=== PATIENT | male | born 1960 | race Two or more races ===

== ENCOUNTER 2020-04-10 14:14 | Outpatient (REF) | payer OTHER, SELFPAY ==
--- NOTE | 2020-04-10 | US_ITS ---
EXAMINATION: US RETROPERITONEAL LIMITED (RENAL ONLY) CLINICAL INFORMATION: Pain in right lower quadrant. COMPARISON: Renal ultrasound 07/19/2019. CT abdomen and pelvis 02/26/2019. Ultrasound abdomen complete 10/20/2018. TECHNIQUE: Real-time imaging of the kidneys. FINDINGS: RIGHT KIDNEY: 11.8 x 5.6 x 5.4 cm (SAG x AP x TRV). The kidney is normal in size, contour, and echogenicity. Renal cortical thickness is normal. No calculi or focal parenchymal lesions. No hydronephrosis. LEFT KIDNEY: 11.9 x 6.9 x 5.7 cm (SAG x AP x TRV). The kidney is normal in size, contour, and echogenicity. Renal cortical thickness is normal. No renal calculi or hydronephrosis. There is an echogenic partially exophytic lesion midpole cortex measuring 2.2 x 1.5 x 1.5 cm likely angiomyolipoma. Previously it measured 1.5 x 1.3 x 1.3 cm on ultrasound on 07/19/2019. US/US renal BI IMPRESSION: Stable angiomyolipoma left kidney. The right kidney is unremarkable.
== END 2020-04-10 14:15 | disposition home or self-care (01) ==
LOC: HO.US 14:14
DX: R10.31 Right lower quadrant pain (principal)
CPT/HCPCS: 76775

== ENCOUNTER 2020-05-18 07:58 | Outpatient (REF) | payer OTHER, SELFPAY ==
[2020-05-18 08:14] LABS: COVID-19 Test Negative (Negative)
== END 2020-05-18 07:59 | disposition home or self-care (01) ==
LOC: HO.EMPCOV 07:58
PROVIDERS: Visit Provider Internal Medicine
DX: Z20.828 Contact with and (suspected) exposure to other viral communicable diseases (principal)
CPT/HCPCS: 87635; C9803

== ENCOUNTER 2020-07-10 10:30 | Outpatient (REF) | payer OTHER, SELFPAY ==
[2020-07-10 10:34] VITALS: BP 147/73; PULSE 59; RESP 16; TEMP 37; O2SAT 96
[2020-07-10 10:35] VITALS: BMI 86.3
[2020-07-10 12:40] VITALS: BP 143/70; PULSE 64; RESP 16; O2SAT 97
== END 2020-07-10 10:31 | disposition home or self-care (01) ==
LOC: HO.MS 10:30
PROVIDERS: PCP Internal Medicine; Visit Provider Ophthalmology
PROC: (CPT 11200; principal; 2020-07-10 12:10)
DX: D23.122 Other benign neoplasm of skin of left lower eyelid, including canthus (principal); D23.121 Other benign neoplasm of skin of left upper eyelid, including canthus; D23.112 Other benign neoplasm of skin of right lower eyelid, including canthus; D23.111 Other benign neoplasm of skin of right upper eyelid, including canthus; L91.8 Other hypertrophic disorders of the skin; I48.91 Unspecified atrial fibrillation; Z79.01 Long term (current) use of anticoagulants; Z79.899 Other long term (current) drug therapy; Z91.040 Latex allergy status
CPT/HCPCS: 11200; 11440 ×4; 88304; 88305

== ENCOUNTER 2020-07-24 06:12 | Outpatient (REF) | payer OTHER, SELFPAY ==
[2020-07-24 07:07] LABS: MANUAL DIFF FLAG NO
[2020-07-24 07:13] LABS: Basophils Percent Auto 0.4 % (0-2); Eosinophils Absolute Auto 0.2 X10*3/uL (0.0-0.4); Eosinophils Percent Auto 2.1 % (0-4); Hematocrit 39.1 % (42-52); Hemoglobin 12.7 g/dl (14.0-18.0); Imm Gran Abs Auto 0.05 X10*3/uL (0.00-0.03); Imm Gran Pct Auto 0.6 % (0.0-0.4); Lymphocytes Absolute Auto 1.1 X10*3/uL (1.2-4.9); Lymphocytes Percent Auto 13.2 % (20-40); Mean Corpuscular HGB Conc 32.5 g/dl (31.0-36.0); Mean Corpuscular Hemoglobin 30.3 pg (27.0-33.0); Mean Corpuscular Volume 93.3 fL (80-98); Mean Platelet Volume 10.5 fL (9.4-12.4); Monocytes Absolute Auto 0.7 X10*3/uL (0.1-1.2); Monocytes Percent Auto 8.1 % (2-11); Neutrophils Absolute Auto 6.1 X10*3/uL (2.0-8.3); Neutrophils Percent Auto 75.6 % (45-73); Platelet Count 179 X10*3/uL (160-400); Red Blood Count 4.19 X10*6/uL (4.60-5.80); White Blood Count 8.1 X10*3/uL (4.8-10.8)
[2020-07-24 07:34] LABS: Alanine Aminotransferase 65 U/L (0-40); Albumin Level 4.3 g/dL (3.5-5.0); Alkaline Phosphatase 119 U/L (39-117); Aspartate Amino Transferase 57 U/L (5-37); Bilirubin Total 0.3 mg/dL (0.0-1.0); Blood Urea Nitrogen 17 mg/dL (9-16); Calcium 8.8 mg/dL (8.4-10.2); Cholesterol 170 mg/dL; Estimated Glomerular Filt Rate > 60; Glucose Fasting 113 mg/dL (60-99); HDL Cholesterol 60 mg/dL; LDL Cholesterol Calculated 87 mg/dl; Total Protein 7.2 g/dL (6.5-8.0); Triglycerides 116 mg/dL
[2020-07-24 07:43] LABS: Anion Gap 13 (12-20); Carbon Dioxide 26 mmol/L (22-29); Chloride 105 mmol/L (96-108); Potassium 4.3 mmol/L (3.3-5.1); Sodium 140 mmol/L (135-145)
[2020-07-24 07:53] LABS: Thyroid Stimulating Hormone 2.04 uIU/mL (0.32-4.0)
== END 2020-07-24 06:13 | disposition home or self-care (01) ==
LOC: HO.LAB 06:12
PROVIDERS: PCP Internal Medicine; Visit Provider Internal Medicine
DX: Z00.00 Encounter for general adult medical examination without abnormal findings (principal); E11.9 Type 2 diabetes mellitus without complications; E03.9 Hypothyroidism, unspecified
CPT/HCPCS: 36415; 80053; 80061; 84443; 85025

== ENCOUNTER → 2020-08-14 12:41 | Outpatient (BNVA) | payer OTHER, SELFPAY | PROVIDERS: PCP Internal Medicine; Visit Provider Internal Medicine Cardiovascular Disease | DX: I83.93 Asymptomatic varicose veins of bilateral lower extremities (principal); I48.0 Paroxysmal atrial fibrillation; I10 Essential (primary) hypertension; E66.9 Obesity, unspecified | CPT/HCPCS: 93005 ==

== ENCOUNTER → 2020-08-23 12:39 | Outpatient (REF) | payer OTHER, SELFPAY | LOC: HO.SL 12:39 | PROVIDERS: PCP Internal Medicine; Visit Provider Internal Medicine Cardiovascular Disease | DX: G47.10 Hypersomnia, unspecified (principal); R06.83 Snoring | CPT/HCPCS: 95806 ==

== ENCOUNTER → 2020-09-06 15:15 | Outpatient (BNVA) | payer OTHER, SELFPAY | PROVIDERS: PCP Internal Medicine; Visit Provider Internal Medicine ==

== ENCOUNTER → 2020-09-22 08:20 | Outpatient (REF) | payer OTHER, SELFPAY ==
--- NOTE | 2020-09-22 08:24 | CA_ITS ---
Transthoracic Echocardiogram Patient (Last, First, Middle): Tyler Hicks, Gender: Male Date of : 1960 Age: 60 Procedure Date: 09/22/2020 Procedure Type: Transthoracic Echocardiogram Location: OP Height: 175.26 cm Weight: 115.67 kg BSA: 2.29 m2 Heart Rate: bpm BP: 135 / 68 mmHg Urogynaecologist: SUSANA Referring MD: Jasen Chen MD Symptoms: I48.0 - Paroxysmal atrial fibrillation Study Quality: Technically Difficult/contrast ECG Rhythm: Sinus Conclusions: - The left ventricular systolic function is normal. The visually estimated ejection fraction is between 60-65%. - No obvious valvular pathology seen on this study. - The left atrium is mildly dilated. Findings Procedure Information Contrast agent, definity, is being given per protocol without apparent complications. Left Ventricle Normal left ventricular cavity size. There is mildly increased left ventricular wall thickness. The left ventricular systolic function is normal. The visually estimated ejection fraction is between 60-65%. There is no evidence of regional wall motion abnormalities. Diastolic function is normal for age. Right Ventricle Normal right ventricular cavity size and systolic function. Atria The left atrium is mildly dilated. The right atrium is normal in size. Aortic Valve There is a normal trileaflet aortic valve. There is no aortic valve stenosis. There is no aortic valve regurgitation. Mitral Valve The mitral valve appears normal. There is trace mitral valve regurgitation. There is no mitral valve stenosis. Pulmonic Valve The pulmonic valve was not well visualized. Tricuspid Valve Normal tricuspid valve structure. There is trace tricuspid valve regurgitation. The pulmonary artery systolic pressure is normal. Great Vessels The aortic annulus, sinuses of valsalva, asc aorta, and aortic arch are normal in size. Venous The inferior vena cava is normal in size and collapses greater than 50% with inspiration. Pericardium/Pleural There is no evidence of pericardial effusion. Prior Study Comparison No significant change compared to prior study dated: 03/08/2019. Recommendations, Care & Conclusions No obvious valvular pathology seen on this study. Measurements 2D Linear Measurements IVSd: 1.28 0.6-0.9/0.6-1.0 cm LVIDd: 5.25 3.9-5.3/4.2-5.9 cm LVIDs: 3.34 2.0-3.6 cm LVPWd: 1.26 0.7-1.1 cm Ao Root: 3.77 2.1-3.5 cm LV Mass: 341.72 67-162/88-224 g LVOT Diam: 2.15 3.0+(-)1.3 cm Mitral Valve MV Pk E: 0.81 MV PK A: 0.67 MV Decel Time: 373.61 E/A: 1.21 E'Lateral: 0.12 E'Medial: 0.08 Decel Mower: 2.18 Aortic Valve AoV Pk Juan: 1.63 AoV Mn Juan: 1.10 AoV VTI: 0.38 AoV Pk Grad: 10.68 Aov Mn Grad: 5.39 LVOT LVOT Pk Juan: 1.42 LVOT Mn Juan: 1.02 LVOT VTI: 0.34 LVOT Pk Grad: 8.03 LVOT Mn Grad: 4.49 LVOT Diam: 2.15 LVOT Area: 3.63 Diastolic Function MV Pk E: 0.81 MV Pk A: 0.67 E/A: 1.21 E'Medial: 0.08 E' Laterial: 0.12 Tricuspid Valve TR Pk Juan: 1.89 TR Pk Grad: 14.22 RA Press: 8.00 RVSP: 22.00 Great Vessels Aorta Ao Root-2D: 3.77 2.0-3.7 cm Ao Asc: 3.88 2.1-3.4 cm Ao Arch: 2.99 Updated in Other Vendor System with Status of Final Warner Purdy MD electronically signed on 09/23/2020 4:31:55 PM with status of Final
== END ==
LOC: HO.CARD 08:20
PROVIDERS: PCP Internal Medicine; Visit Provider Internal Medicine Cardiovascular Disease
DX: I48.0 Paroxysmal atrial fibrillation (principal); I10 Essential (primary) hypertension
CPT/HCPCS: 93306; Q9957

== ENCOUNTER 2020-10-10 07:51 | Outpatient (REF) | payer OTHER, SELFPAY ==
--- NOTE | ~2020-10-10 | US_ITS ---
EXAMINATION: RIGHT and LEFT LOWER EXTREMITY VENOUS ULTRASOUND (Reflux Exam) CLINICAL INDICATION: The uterus insufficiency COMPARISON: None. TECHNIQUE: Color flow triplex imaging and compression Doppler was performed to evaluate both the deep and the superficial systems bilaterally. To evaluate the superficial system, the examination was performed in the upright position. Color-flow Doppler ultrasound and compression ultrasound were utilized. In addition, maneuvers were utilized to demonstrate reflux. FINDINGS: 1. DEEP VENOUS ULTRASOUND OF THE RIGHT LOWER EXTREMITY: Respiratory variation, normal compression and augmented flow are noted in the right common femoral vein as well as the right popliteal vein and there is no evidence of deep venous thrombosis at these locations. There is a 1.4 seconds reflux in the right mid femoral vein. There is no evidence of reflux in the deep system in either the common femoral vein or the popliteal vein. There is no evidence of a Colvin's cyst. 2. SUPERFICIAL ULTRASOUND WITH DOPPLER OF RIGHT LOWER EXTREMITY: The right great saphenous vein at the saphenofemoral junction measures 5 mm, at the mid thigh 3 mm, [id number]-[id number] 4 mm, warra-lik-ikwj 3 mm, at mid calf 3 mm and at the ankle measures 3 mm. There is no reflux demonstrated in the right great saphenous vein. The right small saphenous vein measures 3 mm and shows no reflux. There are 2 small perforators in the mid thigh and proximal calf that measure 2 and 1 mm and do not demonstrate reflux. 3. DEEP VENOUS ULTRASOUND OF THE LEFT LOWER EXTREMITY: Respiratory variation, normal compression and augmented flow are noted in the left common femoral vein as well as the left popliteal vein and there is no evidence of deep venous thrombosis at these locations. There is no evidence of reflux in the deep system in either the common femoral vein or the popliteal vein. . There is no evidence of a Colvin's cyst. 4. SUPERFICIAL ULTRASOUND WITH DOPPLER OF LEFT LOWER EXTREMITY: Left great saphenous vein at the saphenofemoral junction measures 5 mm, at the mid thigh 4 mm, oxnqy-plo-qzjd 3 mm, xomtn-zft-qmmi 3 mm, at mid calf 2 mm and at the ankle measures 3 mm. There is a 2.8 seconds reflux in the left greater saphenous vein in the mid thigh. There is an accessory medial greater saphenous vein that measures 3 mm and does not demonstrate reflux. The left small saphenous vein measures 2-3 mm and shows no reflux. There are some is a staff physician in the mid thigh that measures 2 mm and demonstrates greater than 3.1 seconds reflux. There are perforators in the calf that measure 2 mm and do not demonstrate reflux. US/US venous duplex LE BI IMPRESSION: 1. No evidence of DVT. Reflux in the right mid femoral vein. No left deep venous reflux. 2. Left greater saphenous vein reflux in the mid thigh and staff physician in the mid thigh that demonstrates reflux. No right saphenous vein reflux.
== END 2020-10-10 07:52 | disposition home or self-care (01) ==
LOC: HO.US 07:51
PROVIDERS: Visit Provider Surgery Vascular Surgery
DX: I83.893 Varicose veins of bilateral lower extremities with other complications (principal)
CPT/HCPCS: 93970

== ENCOUNTER → 2020-10-12 15:02 | Outpatient (BNVA) | payer OTHER, SELFPAY | PROVIDERS: PCP Internal Medicine; Visit Provider Surgery Vascular Surgery ==

== ENCOUNTER → 2020-11-03 07:21 | Outpatient (BNVA) | payer OTHER, SELFPAY | PROVIDERS: PCP Internal Medicine; Visit Provider Surgery Vascular Surgery | DX: I83.12 Varicose veins of left lower extremity with inflammation (principal) | CPT/HCPCS: 36482 ==

== ENCOUNTER 2020-11-06 13:58 | Outpatient (REF) | payer OTHER, SELFPAY ==
--- NOTE | ~2020-11-06 | US_ITS ---
EXAMINATION: US VENOUS ULTRASOUND WITH DOPPLER LOWER EXTREMITY, LEFT CLINICAL INFORMATION: Status post left venaseal 11/03/2020 COMPARISON: None TECHNIQUE: Limited imaging through the left groin and left femur was performed. FINDINGS: The left common femoral vein is patent. There is thrombus visualized in left greater saphenous vein status post venous heel approximately 2.1 cm away from the junction with superficial femoral vein. Incidental finding of a left groin lymph node measuring 2.8 x 0.8 x 1.8 cm. If the patient's symptoms persist, followup ultrasound in 5 days 7 days might be of value to exclude proximal propagation from a non-visualized calf vein. US/US venous duplex LE IMPRESSION: Thrombus visualized in the left greater saphenous vein status post venaseal. The left common femoral vein is patent. Additional finding of a left groin lymph node measuring 2.8 cm.
== END 2020-11-06 13:59 | disposition home or self-care (01) ==
LOC: HO.HMGCX 13:58
PROVIDERS: PCP Internal Medicine; Visit Provider Surgery Vascular Surgery
DX: M79.605 Pain in left leg (principal)
CPT/HCPCS: 93971

== ENCOUNTER → 2020-11-14 12:36 | Outpatient (BNVA) | payer OTHER, SELFPAY | PROVIDERS: PCP Internal Medicine; Referring Provider Internal Medicine; Visit Provider Internal Medicine Cardiovascular Disease | DX: I48.0 Paroxysmal atrial fibrillation (principal); I10 Essential (primary) hypertension | CPT/HCPCS: 93005 ==

== ENCOUNTER → 2020-11-16 15:00 | Outpatient (BNVA) | payer OTHER, SELFPAY | PROVIDERS: PCP Internal Medicine; Visit Provider Surgery Vascular Surgery ==

== ENCOUNTER → 2021-01-08 19:10 | Outpatient (REF) | payer OTHER, SELFPAY | LOC: HO.SL 19:10 | PROVIDERS: Visit Provider Internal Medicine | DX: G47.33 Obstructive sleep apnea (adult) (pediatric) (principal); G47.34 Idiopathic sleep related nonobstructive alveolar hypoventilation | CPT/HCPCS: 95811 ==

== ENCOUNTER 2021-02-05 07:31 | Outpatient (REF) | payer OTHER, SELFPAY ==
[2021-02-05 07:59] LABS: COVID-19 Test Negative (Negative)
== END 2021-02-05 07:32 | disposition home or self-care (01) ==
LOC: WCCF 07:31
PROVIDERS: Visit Provider Internal Medicine
DX: Z20.822 Contact with and (suspected) exposure to COVID-19 (principal)
CPT/HCPCS: 36415; 87635; C9803

== ENCOUNTER → 2021-02-06 15:08 | Outpatient (BNVA) | payer OTHER, SELFPAY | PROVIDERS: PCP Internal Medicine; Referring Provider Internal Medicine; Visit Provider Internal Medicine Cardiovascular Disease | DX: I48.0 Paroxysmal atrial fibrillation (principal); I10 Essential (primary) hypertension | CPT/HCPCS: 93005 ==

== ENCOUNTER → 2021-02-08 08:17 | Outpatient (REF) | payer OTHER, SELFPAY ==
--- NOTE | 2021-02-08 08:20 | CA_ITS ---
Acquisition Time: 2021-02-08 08:30:07 Total Exercise Time: 00:04:36 Test Indications: Screening for CAD Medications: AMIODORONE ELIQUIS LISINOPRIL OMEPRAZOLE ROSUVASTATIN TRIAMTERENE/HCTZ FLECAINIDE METOPROLOL Protocol: LILIAM Max HR: 099 BPM 62% of Pred: 158 BPM Max BP: 198/068 mmHG Max Work Load: 6.5 METS Exercise stress test with exercise 4 min 36 sec of Liliam protocol, achieving 62% MPHR and 6.5 METs, with report of significant sob and request to stop, no chest discomfort, without arrythmia, with BP max 198/68, with nondiagnostic EKG for ischemia due to suboptimal heart rate. In recovery his sob resolved and BP normalized. Test reviewed with Dr Chen Will order a pharmacological stress test to further eval for ischemia. Referred By: Jasen Chen Overread By: EREN SAHU
== END ==
LOC: HO.CARD 08:17
PROVIDERS: Visit Provider Internal Medicine Cardiovascular Disease
DX: I48.0 Paroxysmal atrial fibrillation (principal)
CPT/HCPCS: 93017

== ENCOUNTER 2021-02-16 11:01 | Outpatient (REF) | payer OTHER, SELFPAY ==
--- NOTE | ~2021-02-16 | XR_ITS ---
EXAMINATION: XR CHEST CLINICAL INFORMATION: Shortness of breath. COMPARISON: None TECHNIQUE: 2 views of the chest were obtained. FINDINGS: No significant abnormality is noted involving the heart, lungs, mediastinum, bony thorax or soft tissues. XR/XR chest 2V IMPRESSION: Unremarkable chest examination.
[2021-02-16 11:53] LABS: MANUAL DIFF FLAG NO
[2021-02-16 11:58] LABS: Basophils Percent Auto 0.5 % (0-2); Eosinophils Absolute Auto 0.1 X10*3/uL (0.0-0.4); Eosinophils Percent Auto 1.5 % (0-4); Hematocrit 34.2 % (42-52); Hemoglobin 10.8 g/dl (14.0-18.0); Imm Gran Abs Auto 0.03 X10*3/uL (0.00-0.03); Imm Gran Pct Auto 0.4 % (0.0-0.4); Lymphocytes Percent Auto 13.8 % (20-40); Mean Corpuscular HGB Conc 31.6 g/dl (31.0-36.0); Mean Corpuscular Hemoglobin 27.9 pg (27.0-33.0); Mean Corpuscular Volume 88.4 fL (80-98); Mean Platelet Volume 10.6 fL (9.4-12.4); Monocytes Absolute Auto 0.7 X10*3/uL (0.1-1.2); Monocytes Percent Auto 9.9 % (2-11); Neutrophils Absolute Auto 5.5 X10*3/uL (2.0-8.3); Neutrophils Percent Auto 73.9 % (45-73); Platelet Count 148 X10*3/uL (160-400); Red Blood Count 3.87 X10*6/uL (4.60-5.80); Red Cell Distribution Width 14.2 % (11.0-16.0); White Blood Count 7.4 X10*3/uL (4.8-10.8)
[2021-02-16 12:05] LABS: D Dimer < 200 NG/ML
[2021-02-16 12:29] LABS: Anion Gap 11 (12-20); Blood Urea Nitrogen 21 mg/dL (9-16); Calcium 8.4 mg/dL (8.4-10.2); Carbon Dioxide 26 mmol/L (22-29); Chloride 107 mmol/L (96-108); Estimated Glomerular Filt Rate 58; Glucose Random 95 mg/dL (60-115); Potassium 4.3 mmol/L (3.3-5.1); Sodium 140 mmol/L (135-145)
[2021-02-16 12:37] LABS: B Type Natriuretic Peptide 495 pg/mL (<100)
[2021-02-16 12:51] LABS: TSH reflex Free T4 1.45 uIU/mL (0.32-4.0)
== END 2021-02-16 11:02 | disposition home or self-care (01) ==
LOC: HO.XRAY 11:01
PROVIDERS: PCP Internal Medicine; Referring Provider Internal Medicine; Visit Provider Nurse Practitioner Family
DX: R06.02 Shortness of breath (principal); R94.30 Abnormal result of cardiovascular function study, unspecified; I48.0 Paroxysmal atrial fibrillation; Z79.01 Long term (current) use of anticoagulants
CPT/HCPCS: 36415; 71046; 80048; 83880; 84443; 85025; 85379; 93005

== ENCOUNTER → 2021-02-23 07:36 | Outpatient (REF) | payer OTHER, SELFPAY ==
--- NOTE | 2021-02-23 07:42 | CA_ITS ---
Transthoracic Echocardiogram Patient (Last, First, Middle): Tyler Hicks, Gender: Male Date of : 1960 Age: 61 Procedure Date: 02/23/2021 Procedure Type: Transthoracic Echocardiogram Location: OP Height: 175.26 cm Weight: 116.58 kg BSA: 2.30 m2 Heart Rate: bpm BP: 128 / 80 mmHg Referring MD: Fely Parra SKIN WASHER-Wiliam Symptoms: R06.02 - Shortness of breath Study Quality: Fair, definity used to improve endocardial border ECG Rhythm: Sinus Conclusions: - Normal biventricular systolic function. - No definitive regional wall motion abnormalities. - Limited study Findings Procedure Information Contrast agent, definity, is being given per protocol without apparent complications. Left Ventricle Normal left ventricular size and systolic function. There is mildly increased left ventricular wall thickness. The visually estimated ejection fraction is between 60-65%. There is no evidence of regional wall motion abnormalities. Diastolic function is normal for age. Right Ventricle Normal right ventricular cavity size and systolic function. Measurements 2D Linear Measurements IVSd: 1.30 0.6-0.9/0.6-1.0 cm LVIDd: 5.42 3.9-5.3/4.2-5.9 cm LVIDd Index: 2.36 2.4-3.2/2.2-3.1 cm/m2 LVIDs: 3.29 2.0-3.6 cm LVPWd: 1.37 0.7-1.1 cm LV Mass: 385.07 67-162/88-224 g LV Mass Index: 167.42 43-95/49-115 g/m2 2D Systolic Function EF 4C: 64.40 >55% EF 2C: 71.20 >55% EF BiP: 68.00 >55% Mitral Valve MV Pk E: 0.77 MV PK A: 0.60 MV Decel Time: 233.00 E/A: 1.30 E'Lateral: 11.70 E'Medial: 9.03 E/E' Med: 8.50 E/E' Lat: 6.60 PHT: 68.00 MVA PHT: 3.24 Decel [place]: 3.28 Diastolic Function MV Pk E: 0.77 MV Pk A: 0.60 E/A: 1.30 E'Medial: 9.03 E/E' Med: 8.50 E' Laterial: 11.70 E/E' Lat: 6.60 Updated in Other Vendor System with Status of Final Ezequiel Taveras MD electronically signed on 02/25/2021 1:24:39 PM with status of Final
== END ==
LOC: HO.CARD 07:36
PROVIDERS: PCP Internal Medicine; Visit Provider Nurse Practitioner Family
DX: R06.02 Shortness of breath (principal); R94.30 Abnormal result of cardiovascular function study, unspecified
CPT/HCPCS: 93308; Q9957

== ENCOUNTER → 2021-02-28 08:02 | Outpatient (REF) | payer OTHER, SELFPAY ==
--- NOTE | ~2021-02-28 | NM_ITS ---
Myocardial perfusion study Indication: Proximal and atrial fibrillation to evaluate for myocardial ischemia Technique: The patient was brought in for a Lexiscan perfusion study on 02/28/2021. Patient performed low-level exercise and was injected 0.4 mg of Lexiscan intravenously. Within a minute of injection, 45 mCi of sestamibi was given intravenously. Images were obtained using the SPECT gamma camera interlaced with the gating device. Images were obtained in supine position. Resting perfusion study was performed on 03/01/2021. Patient was administered 45 mCi of sestamibi intravenously at rest. Images were then obtained in supine position. Images obtained with and without CT attenuation. Total DLP 128 mGy-cm. Images were processed with the software and compared side to side in short axis, horizontal long axis and vertical long axis views. Findings: The stress perfusion study showed nonattenuated images show mildly reduced uptake in the basal inferior wall of the LV myocardium. Remainder of the LV myocardium is normally perfused. Attenuation corrected images show mildly reduced uptake in the apex of the LV myocardium.. The gated study shows normal LV systolic function with calculated LVEF of 63%. LV cavity is normal in size. The gated study shows normal systolic wall thickening and contraction of segments. Resting study shows no change in perfusion pattern compared to stress perfusion study. Gating at rest reveals normal systolic wall motion with ejection fraction at 64%. The findings are consistent with no clear reversible defect, normal myocardial perfusion. NM/NM kin perf SPECT rest & str Impression: 1. Myocardial perfusion imaging study shows normal myocardial perfusion 2. Gated LVEF is 63% 3. Transient ischemic dilatation not present EKG is nondiagnostic for ischemia
--- NOTE | 2021-02-28 08:05 | CA_ITS ---
Acquisition Time: 2021-02-28 08:03:33 Total Exercise Time: 00:02:00 Test Indications: Abnormal Treadmill Test Medications: FLECAINIDE METOPROLOL ELIQUIS LISINOPRIL OMEPRAZOLE Protocol: LEXISCAN Max HR: 075 BPM 47% of Pred: 157 BPM Max BP: 132/074 mmHG Max Work Load: 1.6 METS Pharmacological stress test with Lexiscan injection, while walking on treadmill, without anginal symptoms, without arrythmia, with normotensive response to injection, with nondiagnostic EKG for ischemia. in recovery he reported heaviness in his chest that was treated with Aminophylline 75mg IVP with resolution of symptom. Nuclear images pending. Test reviewed with Dr Chen. Referred By: Fely Parra Overread By: FELY PARRA
== END ==
LOC: HO.CARD 08:02
PROVIDERS: PCP Internal Medicine; Visit Provider Nurse Practitioner Family
DX: I48.0 Paroxysmal atrial fibrillation (principal); R94.30 Abnormal result of cardiovascular function study, unspecified
CPT/HCPCS: 78452; 93017; A9500; J0280; J2785

== ENCOUNTER 2021-03-06 08:10 | Outpatient (REF) | payer OTHER, SELFPAY ==
[2021-03-06 09:11] LABS: Anion Gap 14 (12-20); Blood Urea Nitrogen 25 mg/dL (9-16); Calcium 9.1 mg/dL (8.4-10.2); Carbon Dioxide 24 mmol/L (22-29); Chloride 106 mmol/L (96-108); Estimated Glomerular Filt Rate 55; Glucose Random 128 mg/dL (60-115); Potassium 4.4 mmol/L (3.3-5.1); Sodium 140 mmol/L (135-145)
[2021-03-06 09:18] LABS: B Type Natriuretic Peptide 62 pg/mL (<100)
== END 2021-03-06 08:11 | disposition home or self-care (01) ==
LOC: HO.LAB 08:10
PROVIDERS: PCP Internal Medicine; Visit Provider Nurse Practitioner Family
DX: R06.02 Shortness of breath (principal)
CPT/HCPCS: 36415; 80048; 83880

== ENCOUNTER → 2021-05-21 15:09 | Outpatient (BNVA) | payer OTHER, SELFPAY | PROVIDERS: PCP Internal Medicine; Referring Provider Internal Medicine; Visit Provider Internal Medicine Cardiovascular Disease | DX: I48.0 Paroxysmal atrial fibrillation (principal); I10 Essential (primary) hypertension | CPT/HCPCS: 93005 ==

== ENCOUNTER 2021-06-18 08:27 | Outpatient (REF) | payer OTHER, SELFPAY ==
--- NOTE | ~2021-06-18 | XR_ITS ---
EXAMINATION: XR CALCANEUS, LEFT CLINICAL INFORMATION: Pain COMPARISON: Previous x-ray March 2021 TECHNIQUE: Lateral and axial views of the left calcaneus were obtained. FINDINGS: There are calcaneal spurs along the plantar surface and at the Achilles tendon insertion. No fracture, dislocation or bone lesion is seen. There is some soft tissue swelling over the plantar surface of the calcaneus that is new or increased from March 2021 exam. No soft tissue foreign body or soft tissue calcification is seen. XR/XR calcaneus LT min 2V IMPRESSION: Calcaneal spurs. Increasing soft tissue swelling plantar calcaneus.
== END 2021-06-18 08:28 | disposition home or self-care (01) ==
LOC: HO.XRAY 08:27
PROVIDERS: PCP Internal Medicine; Visit Provider Internal Medicine
DX: M79.672 Pain in left foot (principal)
CPT/HCPCS: 73650

== ENCOUNTER 2021-06-28 05:56 | Outpatient (REF) | payer OTHER, SELFPAY ==
[2021-06-28 08:02] LABS: Cholesterol 166 mg/dL; HDL Cholesterol 53 mg/dL; LDL Cholesterol Calculated 88 mg/dl; Triglycerides 125 mg/dL
== END 2021-06-28 05:57 | disposition home or self-care (01) ==
LOC: HO.LAB 05:56
PROVIDERS: PCP Internal Medicine; Visit Provider Internal Medicine
DX: Z00.00 Encounter for general adult medical examination without abnormal findings (principal)
CPT/HCPCS: 36415; 80061

== ENCOUNTER 2021-09-19 07:34 | Outpatient (REF) | payer OTHER, SELFPAY ==
[2021-09-19 08:00] LABS: COVID-19 Test Negative (Negative); IDNOW Serial# 55D5AD1C
== END 2021-09-19 07:35 | disposition home or self-care (01) ==
LOC: HO.LAB 07:34
PROVIDERS: Visit Provider Internal Medicine
DX: Z20.822 Contact with and (suspected) exposure to COVID-19 (principal)
CPT/HCPCS: 87635; C9803

== ENCOUNTER 2021-10-25 07:40 | Outpatient (REF) | payer OTHER, SELFPAY ==
--- NOTE | ~2021-10-25 | US_ITS ---
EXAMINATION: US LOWER EXTREMITY VENOUS (REFLUX EXAM), BILATERAL CLINICAL INDICATION: Chronic venous insufficiency with history of lower extremity varicose veins and pain. History of prior Venaseal ablation of the left great saphenous vein COMPARISON: 10/06 and 11/06/2020 TECHNIQUE: Color flow triplex imaging and compression Doppler was performed to evaluate both the deep and the superficial systems bilaterally. To evaluate the superficial system, the examination was performed in the upright position. Color-flow Doppler ultrasound and compression ultrasound were utilized. In addition, maneuvers were utilized to demonstrate reflux. FINDINGS: 1. DEEP VENOUS ULTRASOUND OF THE RIGHT LOWER EXTREMITY: Common Femoral Vein: Compressible, normal respiratory variation and augmented flow. Femoral Vein: Compressible, normal color flow and augmentation. Popliteal Vein: Compressible, normal augmentation. Deep Reflux: There is mild reflux in the mid femoral vein measuring 950 ms Large lymph node is seen in the right groin measuring 2.0 x 3.8 x 1.4 cm 2. SUPERFICIAL ULTRASOUND WITH DOPPLER OF RIGHT LOWER EXTREMITY: GREAT SAPHENOUS VEIN: Saphenofemoral Junction: 6 mm; No evidence of reflux. Proximal Thigh: 0.5 mm; No evidence of reflux. Mid Thigh: 0.3 mm; reflux measuring 660 ms Above Knee: 0.3 mm; No evidence of reflux. At Knee: 0.4 mm; No evidence of reflux. Below Knee: 0.3 mm; No evidence of reflux. Mid Calf: 0.2 mm; No evidence of reflux. Ankle: 0.3 mm; No evidence of reflux. DUPLICATED GREAT SAPHENOUS VEIN: Lateral duplicated great saphenous vein measures 2.6 mm without reflux SMALL SAPHENOUS VEIN: Proximal: 4.8 mm; No evidence of reflux. Arising off the gastrocnemius vein Mid Lateral duplicated: 2.3 mm. No evidence of reflux Mid medial duplicated: 2.1 mm. No evidence of reflux Distal lateral duplicated: 1.9 mm; No evidence of reflux. Distal medial duplicated: 1.8 mm. No evidence of reflux VEIN OF GIACOMINI: None Imaged. PERFORATORS: None Imaged VARICOSITIES: None Imaged 3. DEEP VENOUS ULTRASOUND OF THE LEFT LOWER EXTREMITY: Common Femoral Vein: Compressible, normal respiratory variation and augmented flow. Femoral Vein: Compressible, normal color flow and augmentation. Popliteal Vein: Compressible, normal augmentation. Deep Reflux: There is no evidence of reflux in the deep system in either the common femoral vein or the popliteal vein. Large lymph node seen in the left groin measuring of 4.5 x 1.2 x 2.1 cm 4. SUPERFICIAL ULTRASOUND WITH DOPPLER OF LEFT LOWER EXTREMITY: GREAT SAPHENOUS VEIN: Saphenofemoral Junction: 5.2 mm; No evidence of reflux. Proximal Thigh: 4.7 mm; No evidence of reflux.. This extends over a length of 3.9 cm. Mid Thigh: Occluded due to prior ablation. Above Knee: 2.0 mm; No evidence of reflux. At Knee: 1.8 mm; No evidence of reflux. Below Knee: 2.5 mm; reflux measuring 700 ms Mid Calf: 2.4 mm; No evidence of reflux. Ankle: 2.2 mm; No evidence of reflux. DUPLICATED GREAT SAPHENOUS VEIN: Lateral duplicated great saphenous vein measures 3.0 mm without significant reflux SMALL SAPHENOUS VEIN: Proximal: 2.1 mm; No evidence of reflux. Distal: 2.1 mm; No evidence of reflux. VEIN OF GIACOMINI: None Imaged. PERFORATORS: None Imaged VARICOSITIES: Varicosities seen in the left mid calf off of the stencil machine operator vein measuring 2.4 cm US/US venous duplex LE BI IMPRESSION: 1. No evidence of deep venous thrombosis 2. Mild to moderate focal segmental reflux in the right mid to thigh great saphenous vein 3. Status post segmental closure of the left great saphenous vein through the mid thigh. There is a focal segmental reflux in the residual left great saphenous vein within the below-knee calf 4. Borderline mild to moderate deep venous reflux in the right mid superficial femoral vein
== END 2021-10-25 07:41 | disposition home or self-care (01) ==
LOC: HO.US 07:40
PROVIDERS: PCP Internal Medicine; Visit Provider Surgery Vascular Surgery
DX: I83.893 Varicose veins of bilateral lower extremities with other complications (principal)
CPT/HCPCS: 93970

== ENCOUNTER 2021-11-15 09:36 | Day surgery (SDC) | payer OTHER, SELFPAY ==
--- NOTE | 2021-11-15 10:02 | MHC.SHP ---
Pre-Procedural Eval Section A Date of Service: 11/15/21 The patient is an INPATIENT: No The History & Physical has been completed within 30 days and I have reviewed it.: Yes Section B Chief Complaint: Trigger finger, left ring finger Allergies: Allergies Allergy/AdvReac Type Severity Reaction Status Date / Time latex [Latex] Allergy Intermediate RASH Verified 10/30/21 15:14 avocado [Avocado] Allergy Mild UNKNOWN Verified 10/30/21 15:14 banana [Banana] Allergy Mild UNKNOWN Verified 10/30/21 15:14 kiwi [KIWI] Allergy Unknown RASH Verified 10/30/21 15:14 Pistacia Vera (Pistachio) Allergy Unknown RASH Verified 10/30/21 15:14 [PISTACIA VERA (PISTACHIO)] Environmental Allergy Mild RUNNY NOSE Uncoded 10/30/21 15:14 Plan I have reviewed the history and physical and performed a pertinent physical examination on my patient. No changes have occurred unless specified.
--- NOTE | 2021-11-15 10:03 | P.OP_ITS ---
Operative Note Operative Note Date of Service: 11/15/21 Narrative: Operative Note Preop diagnosis: 1. Left ring finger Trigger finger Postop diagnosis: 1. left ring finger Trigger finger Procedure: 1. left ring finger A1 porfirio release Surgeon: Eulalia Connors MD Anesthesia: local block using 1% lidocaine with epinephrine Findings: No locking or catching after A1 porfirio release EBL: Less than 5 mL Tourniquet time: None Specimens: None Complications: None Disposition: Brought to recovery room in stable condition Plan: Follow-up for 10-14 days for wound check and suture removal Indications: The patient is 61 years old, with a left ring finger trigger finger that has been unresponsive to nonoperative management. The risks and benefits of operative treatment including but not limited to risk of damage to blood vessels, nerves, tendons, infection, persistent pain, persistent symptoms, recurrence or possible need for additional surgery were discussed with the patient and the patient wishes to proceed with surgery. Procedure: Once consent was obtained a local block was performed in the preop area using a combination of 1% lidocaine with epinephrine. The patient was then brought back to the operating suite and placed on the operative table in supine position. A tourniquet was applied to the proximal aspect of the left upper extremity and the limb was prepped and draped in a standard surgical fashion. Once assured that we had a good block, a 1.5 cm oblique incision was made centered over the A1 porfirio of the left ring finger . The incision was made through the skin to the subcutaneous tissues using a #15 blade. Careful dissection was made down to the level of the A1 porfirio using tenotomy scissors, with care being taken to protect the nearby neurovascular structures. A longitudinal incision was made in the A1 porfirio 1st using a #15 blade, then using tenotomy scissors under direct visualization. The A1 porfirio was noted to be thickened. Following our A1 porfirio release, we no longer saw any locking or catching of the digit with flexion and extension. Once satisfied with our A1 porfirio release the wound was copiously irrigated with normal saline and hemostasis was obtained with a brief period of local pressure. The skin edges were reapproximated with some 5.0 nylon suture material and a sterile dressing was applied. The patient appears to have tolerated the procedure well and with no compli cations. All digits were well vascularized at the conclusion of the case.
[2021-11-15 10:16] VITALS: BP 152/90; PULSE 57; RESP 18; TEMP 36.4; O2SAT 97
[2021-11-15 10:22] VITALS: BMI 38.4
[2021-11-15 12:06] VITALS: BP 147/79; PULSE 52; RESP 20; TEMP 36.8; O2SAT 96
== END 2021-11-15 12:09 | disposition home or self-care (01) ==
PROVIDERS: PCP Internal Medicine; Visit Provider Orthopaedic Surgery
PROC: (CPT 26055; principal; 2021-11-15 13:50)
DX: M65.342 Trigger finger, left ring finger (principal); G47.33 Obstructive sleep apnea (adult) (pediatric); I48.91 Unspecified atrial fibrillation; Z79.01 Long term (current) use of anticoagulants; E66.9 Obesity, unspecified; Z68.39 Body mass index [BMI] 39.0-39.9, adult; Z91.040 Latex allergy status
CPT/HCPCS: 26055; J0171

== ENCOUNTER 2021-11-25 13:13 | Emergency (ER) | payer OTHER, SELFPAY ==
--- NOTE | ~2021-11-25 | US_ITS ---
EXAMINATION: US VENOUS ULTRASOUND WITH DOPPLER LOWER EXTREMITY, RIGHT CLINICAL INFORMATION: Leg pain COMPARISON: Ultrasound 10/10/2020 TECHNIQUE: Ultrasound of the deep veins is performed from the hip to the calf with compression sonography and color and pulse Doppler assessment. Spectral analysis with color-flow imaging is performed. FINDINGS: There is normal venous compression and respiratory variation and augmented flow. The visualized common femoral vein, superficial femoral vein, profunda femoral vein, popliteal vein, and the trifurcation region shows no evidence of deep venous thrombosis. There is no significant popliteal fossa cyst. . If the patient's symptoms persist, followup ultrasound in 5 days 7 days might be of value to exclude proximal propagation from a non-visualized calf vein. US/US venous duplex LE RT IMPRESSION: No DVT demonstrated in the right lower extremity.
--- NOTE | ~2021-11-25 | XR_ITS ---
EXAMINATION: XR KNEE, RIGHT CLINICAL INFORMATION: Pain COMPARISON: None TECHNIQUE: Four views of the right knee. FINDINGS: There is mild loss of medial compartment joint space. Mild superior patellar spurring. No visible acute fracture or dislocation seen. There is no joint effusion. XR/XR knee RT 3V IMPRESSION: Mild superior patellar spurring with minimal suprapatellar joint effusion. No visible acute fracture or dislocation seen.
[2021-11-25 13:39] VITALS: BP 173/83; PULSE 56; RESP 20; TEMP 36.4; O2SAT 97; BMI 38.4
[2021-11-25] MEDS: oxyCODONE HCl Immed Release 5 MG TABLET PO (15:08)
--- NOTE | 2021-11-25 15:16 | ED_ITS ---
HPI - General Adult General Chief complaint: Extremity Problem Stated complaint: r leg pain Time Seen by Provider: 11/25/21 13:49 Source: patient Mode of arrival: ambulatory Limitations: no limitations History of Present Illness HPI narrative: 61 YOLD MALE WITH PMH OF Htn AND AFIB PRESENTS TO THE ED for posterior right knee pain radiating down right leg. patient denies any recent trauma. patient and states having this pain for months. Patient denies any redness, bluish/black dislcoration, fever, chills, chest pain, or shortness of breath Patient denies any paralysis of extremities, slurred speech, facial droop, dissziness, loss of vision, or dizziness. Related Data Home Medications Medication Instructions Recorded Confirmed herbal drugs (Colon Herbal cap PO DAILY 06/27/20 09/12/21 Cleanser) lisinopril 10 mg tablet 10 mg PO DAILY 06/27/20 09/12/21 omeprazole 40 mg capsule,delayed 40 mg PO DAILY 06/27/20 09/12/21 release Previous Rx's Medication Instructions Recorded triamterene 37.5 1 tab PO DAILY #90 tabs 10/22/20 mg-hydrochlorothiazide 25 mg tablet apixaban 5 mg tablet 5 mg PO BID #60 tabs 03/22/21 flecainide 100 mg tablet 100 mg PO Q12H #60 tabs 05/04/21 metoprolol succinate 25 mg 12.5 mg PO DAILY 90 days #45 tabs 08/13/21 tablet,extended release 24 hr furosemide 20 mg tablet (Lasix) 20 mg PO .COMPLEX edema 30 days 09/12/21 #12 tabs rosuvastatin 40 mg tablet 40 mg PO DAILY #90 tabs 10/09/21 hydrocodone 5 mg-acetaminophen 325 1 tab PO Q4-6H PRN pain #5 tabs 11/15/21 mg tablet oxycodone 5 mg tablet 5 mg PO Q8H PRN pain 3 days #9 tabs 11/25/21 prednisone 20 mg tablet 40 mg PO DAILY 5 days #10 tabs 11/25/21 Allergies Allergy/AdvReac Type Severity Reaction Status Date / Time latex [Latex] Allergy Intermediate RASH Verified 11/25/21 13:45 avocado [Avocado] Allergy Mild UNKNOWN Verified 11/25/21 13:45 banana [Banana] Allergy Mild UNKNOWN Verified 11/25/21 13:45 kiwi [KIWI] Allergy Unknown RASH Verified 11/25/21 13:45 Pistacia Vera (Pistachio) Allergy Unknown RASH Verified 11/25/21 13:45 [PISTACIA VERA (PISTACHIO)] Environmental Allergy Mild RUNNY NOSE Uncoded 11/25/21 13:45 Review of Systems Review of Systems: Posterior RIght knee pain radiating down right leg Yes all other systems are reviewed and are negative [facility] Past Medical History Medical History Atrial fibrillation Surgical History Hx of endoscopy Family History Family History Father No problems noted. Mother No problems noted. 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 Current occupational exposures/hazards: No Cognitive needs: No Hearing needs: No Vision needs: Yes Physical Exam ED Vital Signs: Vital Signs - 24 hr 11/25/21 13:39 Temperature 97.5 F Pulse Rate 56 Respiratory Rate 20 Blood Pressure 173/83 H Pulse Oximetry 97 Oxygen Delivery Method Room Air BMI result Body Mass Index 38.4 Const General: cooperative, healthy appearing, comfortable, no acute distress, well developed, alert, awake and Physically active Orientation/consciousness: oriented to place and patient oriented x3 HENMT Head: Yes normal to inspection, Yes No palpable skull fracture present, Yes n ormocephalic, Yes atraumatic and No abrasion Eyes General: appearance normal, both eyes and all related structures Neck Neck: Yes normal visual inspection, Yes full ROM, Yes no lymphadenopathy, Yes no meningeal signs, Yes trachea midline, Yes supple, No anterior neck swelling and No tender Chest Chest palpation & inspection: normal inspection of the chest and normal palpation of entire chest wall Resp Effort & Inspection: normal respiratory effort and able to speak in complete sentences Auscultation: clear to auscultation bilaterally Cardio Jugular venous distension: no JVD Heart sounds: S1 normal heart sound present and S2 normal heart sound present GI Inspection: Yes normal to inspection and No abdominal wall ecchymosis Palpation (GI): Soft to palpation, not firm, nontender, no guarding and not rigid General: No CVA tenderness and Yes no CVA tenderness Back/Spine/Pelvis Back: no CVA tenderness, No CVA tenderness and No back tenderness Skin General skin exam: no rashes or lesions noted and elasticity normal Neuro General: oriented to place, patient oriented x3, gait normal, tone normal and no meningeal signs Cranial nerves: Yes CN's II-XII intact bilaterally Extrem General: Yes normal to inspection and Yes full ROM Knee images: 1. positive for tenderness on palpation. negative for redness, fluctunace, elasticity, deformity, or ecchymosis. popiteal pulsees intact. WHole extremity motor, neuro, and vacsular exam is intact Psych Appearance: grossly normal, well kempt and not disheveled Course Course Course Narrative: ultrasound and xray ordered Reevaluation(s) Reevaluation #1: Utrasound and xray is normal. Time: 17:21 Medical Decision Making [facility] Narrative Medical decision making narrative: Knee arthritis Discharge Plan Discharge Clinical Impression: Arthritis of knee, right, Effusion of knee joint, left Patient Disposition: Home, Self-Care Instructions: Osteoarthritis (ED), Swollen Knee Joint (ED) Additional Instructions: Your ultrasound came back negative for DVT. X-ray shows mild arthritis and small knee joint effusion. Please follow-up with primary care provider. Return to the ED immediately for worsening pain, redness, swelling, calf pain, chest pain, shortness of breath, coughing up blood, or any other concerning symptoms. Prescriptions: New oxycodone 5 mg tablet 5 mg PO Q8H PRN (Reason: pain) 3 Days Qty: 9 0RF Rx Instructions: Partial Fill upon patient request. prednisone 20 mg tablet 40 mg PO DAILY 5 Days Qty: 10 0RF No Action triamterene-hydrochlorothiazid 37.5-25 mg tablet 1 tab PO DAILY Qty: 90 1RF Hold Instructions: Doctor's Order apixaban 5 mg tablet 5 mg PO BID Qty: 60 8RF flecainide 100 mg tablet 100 mg PO Q12H Qty: 60 4RF Rx Instructions: Start 02/10/2021 metoprolol succinate 25 mg tablet extended release 24 hr 12.5 mg PO DAILY 90 Days Qty: 45 3RF rosuvastatin 40 mg tablet 40 mg PO DAILY Qty: 90 8RF hydrocodone-acetaminophen 5-325 mg tablet 1 tab PO Q4-6H PRN (Reason: pain) Qty: 5 0RF Rx Instructions: Partial Fill upon patient request. omeprazole 40 mg capsule,delayed release(DR/EC) 40 mg PO DAILY lisinopril 10 mg tablet 10 mg PO DAILY Colon Herbal Cleanser Capsule PO DAILY furosemide [Lasix] 20 mg tablet 20 mg PO .COMPLEX 30 Days Qty: 12 3RF Rx Instructions: 20 mg PO on Friday, Friday, Friday; Referrals: Elio Drew MD [Primary Care Provider] - (Right knee arthritis small joint effusion) Interventions: ED Discharge Assessment Last Done: 11/25/21 17:35 Discharge Date/Time: 11/25/21 17:36 Print Language: [place]
== END 2021-11-25 17:36 | disposition home or self-care (01) ==
PROVIDERS: Emergency Provider Emergency Medicine; PCP Internal Medicine
DX: M17.11 Unilateral primary osteoarthritis, right knee (principal); M25.461 Effusion, right knee; M79.604 Pain in right leg; I10 Essential (primary) hypertension; I48.91 Unspecified atrial fibrillation; Z79.01 Long term (current) use of anticoagulants
CPT/HCPCS: 73562; 93971; 99283; 99284

== ENCOUNTER → 2021-12-03 15:30 | Outpatient (BNVA) | payer OTHER, SELFPAY | PROVIDERS: PCP Internal Medicine; Referring Provider Internal Medicine; Visit Provider Internal Medicine Cardiovascular Disease | DX: I48.0 Paroxysmal atrial fibrillation (principal); I10 Essential (primary) hypertension | CPT/HCPCS: 93005 ==

== ENCOUNTER 2021-12-04 04:16 | Emergency (ER) | payer OTHER, SELFPAY ==
[2021-12-04 04:41] VITALS: BP 177/85; PULSE 69; RESP 18; TEMP 36.6; O2SAT 96; BMI 38.9
[2021-12-04 05:05] LABS: Appearance Urine CLEAR; Color Urine YELLOW; Glucose Urine UA 250 MG/DL (NEG); Leukocyte Esterase Urine NEG (NEG); Nitrite Urine NEG (NEG); Specific Gravity - Urine 1.025 (1.005-1.025); UACC Culture Trigger NO; Urine Blood TRACE (NEG); Urine Ketones NEG (NEG); Urine Protein 1+ MG/DL (NEG-TRACE)
[2021-12-04 05:08] LABS: PLT CLUMP 1
--- NOTE | 2021-12-04 05:08 | ED_ITS ---
HPI - Male Genitourinary General Chief complaint: Urogenital-Male Stated complaint: testicle pain & swelling Time Seen by Provider: 12/04/21 05:08 Source: patient Mode of arrival: ambulatory Limitations: no limitations History of Present Illness HPI Narrative: 61-year-old male came in for evaluation of Penile itching and burning. Symptoms started 2 days ago as swelling of the penis with redness, burning and itching, patient is nondiabetic but patient was recently started on prednisone by his PCP ( patient do not know the reason for the prednisone), patient sexually not active for the past 4 years with no chance of STD, no penile discharge or rash. No trauma to the gentle area. Related Data Home Medications Medication Instructions Recorded Confirmed herbal drugs (Colon Herbal cap PO DAILY 06/27/20 09/12/21 Cleanser capsule) lisinopril 10 mg tablet 10 mg PO DAILY 06/27/20 12/03/21 omeprazole 40 mg capsule,delayed 40 mg PO DAILY 06/27/20 12/03/21 release Previous Rx's Medication Instructions Recorded triamterene 37.5 1 tab PO DAILY #90 tabs 10/22/20 mg-hydrochlorothiazide 25 mg tablet apixaban 5 mg tablet 5 mg PO BID #60 tabs 03/22/21 flecainide 100 mg tablet 100 mg PO Q12H #60 tabs 05/04/21 metoprolol succinate 25 mg 12.5 mg PO DAILY 90 days #45 tabs 08/13/21 tablet,extended release 24 hr furosemide 20 mg tablet (Lasix) 20 mg PO .COMPLEX edema 30 days 09/12/21 #12 tabs rosuvastatin 40 mg tablet 40 mg PO DAILY #90 tabs 10/09/21 hydrocodone 5 mg-acetaminophen 325 1 tab PO Q4-6H PRN pain #5 tabs 11/15/21 mg tablet oxycodone 5 mg tablet 5 mg PO Q8H PRN pain 3 days #9 tabs 11/25/21 nystatin 100,000 unit/gram topical 1 appl topical TID #30 grams 12/04/21 ointment Allergies Allergy/AdvReac Type Severity Reaction Status Date / Time latex [Latex] Allergy Intermediate RASH Verified 11/25/21 13:45 avocado [Avocado] Allergy Mild UNKNOWN Verified 11/25/21 13:45 banana [Banana] Allergy Mild UNKNOWN Verified 11/25/21 13:45 kiwi [KIWI] Allergy Unknown RASH Verified 11/25/21 13:45 Pistacia Vera (Pistachio) Allergy Unknown RASH Verified 11/25/21 13:45 [PISTACIA VERA (PISTACHIO)] Environmental Allergy Mild RUNNY NOSE Uncoded 11/25/21 13:45 Review of Systems Review of Systems: All other systems are reviewed and are negative Constitutional: Reports as per HPI and Reports no additional constitutional complaints Eyes: Reports as per HPI and Reports no additional eye complaints Reports system reviewed and no additional complaints, except as documented Cardiovascular: Reports as per HPI and Reports no additional cardiovascular complaints Respiratory: Reports as per HPI and Reports no additional respiratory complaints Gastrointestinal: Reports as per HPI and Reports no additional gastrointestinal complaints Genitourinary: Reports no additional female genitourinary complaints Musculoskeletal: Reports no additional musculoskeletal complaints Skin/Breast: Reports system reviewed and no additional complaints, except as docu Psychiatric: Reports no additional psychiatric complaints Endocrine: Reports no additional endocrine complaints Hematologic/Lymphatic: Reports no additional hematologic/lymphatic complaints Allergic/Immunologic: Reports no additional allergic/immunologic complaints Reports system reviewed and no additional complaints, except as documented and Reports Abnormal speech present [facility] Past Medical History Medical History Atrial fibrillation HTN (hypertension) Nocturnal hypoxemia Obesity Obesity INGA (obstructive sleep apnea) Paroxysmal atrial fibrillation Varicose veins of both lower extremities Surgical History Hx of endoscopy Family History Family History Father No problems noted. Mother No problems noted. 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 Blood pressure normal. Heart rate normal. Respiration rate normal. Temperature normal. Oxygen saturation normal. Appearance: Alert. Oriented X3. No acute distress. Head: Normal external exam. Normocephalic. Atraumatic. No [place] signs noted. No raccoon eyes noted Eyes: PERRLA. EOMI. Conjunctiva and sclera normal. Eyelids normal. ENT: TM's Normal. Pharynx normal. Uvula midline. Moist mucous membranes. No trismus noted. No drooling noted. No muffled voice noted. Neck: Normal inspection. Neck supple. FROM. No adenopathy. Thyroid Normal. No meningeal signs. No neck mass noted. CVS: Normal heart rate and rhythm. Heart sound normal. No murmurs noted. Pulses normal throughout. Respiratory: No respiratory distress. Painless inspiration. Breath sounds normal. No wheezes/rales/rhonchi noted. Chest nontender. No accessory muscle usage noted or decreased air movement noted. Abdomen: Soft and nontender. Bowel sounds normal in all 4 quadrants. No distention noted. No organomegaly noted. No visible injury noted. : Circumcised, penile glans is red and inflamed, no urethral discharge, no ulcer rash, no inguinal lymph node. Back: No CVA tenderness. Full range of motion noted. Skin: Skin warm and dry. Normal skin color. Normal skin turgor. No rashes/lesions/lacerations noted. Extremities: No lower extremity edema. Extremities exhibit normal range of motion. Extremities nontender. Neuro: Oriented X 3. Cranial nerve exam: II-XII are grossly intact No motor deficit. No sensory deficit. Reflexes normal. Course Course Course Narrative: 61-year-old male nondiabetic but recent use of prednisone as reported by the patient with exam consistent with balanitis, patient confirmed no risk for STD no sexual intercourse for the past 4 years. Start the patient on nystatin cream. Found to have hyperglycemia which could be effect of steroid that the patient was on,was instructed to follow-up with PCP. MDM - Male Genitourinary Lab Data Attestation: I reviewed the patient's lab results. Result diagrams: 12/04/21 04:52 12/04/21 04:52 Labs: Lab Results 12/04/21 12/04/21 12/04/21 Range/Units 04:52 04:52 04:55 WBC 7.7 (4.8-10.8) X10*3/uL RBC 4.53 L (4.60-5.80) X10*6/uL Hgb 12.3 L (14.0-18.0) g/dl Hct 37.6 L (42.0-52.0) % MCV 83.0 (80.0-98.0) fL MCH 27.2 (27.0-33.0) pg MCHC 32.7 (31.0-36.0) g/dl RDW 14.0 (11.0-16.0) % Plt Count 129 L (160-400) X10*3/uL MPV 11.1 (9.4-12.4) fL Absolute Nucleated RBC 0.000 (0.0-0.012) X10*3/uL Nucleated RBC % (auto) 0.0 (0.0-0.2) /100WBC Sodium 137 (135-145) mmol/L Potassium 4.0 (3.3-5.1) mmol/L Chloride 101 (96-108) mmol/L Carbon Dioxide 27 (22-29) mmol/L Anion Gap 13 (12-20) BUN 22 H (9-16) mg/dL Creatinine 1.30 (0.5-1.4) mg/dL Estim Creat Clear Calc 74.3 Estimated GFR 56 Random Glucose 283 H D (60-115) mg/dL Calcium 8.8 (8.4-10.2) mg/dL Total Bilirubin 0.4 (0.0-1.0) mg/dL AST 37 (5-37) U/L ALT 56 H (0-40) U/L Alkaline Phosphatase 127 H (39-117) U/L Total Protein 7.4 (6.5-8.0) g/dL Albumin 4.2 (3.5-5.0) g/dL Urine Color YELLOW Urine Appearance CLEAR Urine pH 6.0 (5.0-8.0) Ur Specific [place] 1.025 (1.005-1.025) Urine Protein 1+ H (NEG-TRACE) MG/DL Urine Glucose (UA) 250 H (NEG) MG/DL Urine Ketones NEG (NEG) MG/DL Urine Blood TRACE (NEG) Urine Nitrite NEG (NEG) Ur Leukocyte Esterase NEG (NEG) Urine RBC 1-4 (0) /HPF Urine WBC 1-4 (0-4) /HPF Ur Squamous Epith Cells 2+ /LPF Urine Bacteria 2+ /LPF Hyaline Casts 0-2 /LPF Granular Casts 0-2 /LPF Urine Mucus 2+ /LPF Discharge Plan Discharge Clinical Impression: Balanitis, Hyperglycemia Patient Disposition: Home, Self-Care Instructions: Balanitis (ED) Prescriptions: New nystatin 100,000 unit/gram ointment 1 appl topical TID Qty: 30 0RF Rx Instructions: apply to the inflamed area 3 times a day for 7 days. No Action triamterene-hydrochlorothiazid 37.5-25 mg tablet 1 tab PO DAILY Qty: 90 1RF Hold Instructions: Doctor's Order apixaban 5 mg tablet 5 mg PO BID Qty: 60 8RF flecainide 100 mg tablet 100 mg PO Q12H Qty: 60 4RF Rx Instructions: Start 02/10/2021 metoprolol succinate 25 mg tablet extended release 24 hr 12.5 mg PO DAILY 90 Days Qty: 45 3RF rosuvastatin 40 mg tablet 40 mg PO DAILY Qty: 90 8RF oxycodone 5 mg tablet 5 mg PO Q8H PRN (Reason: pain) 3 Days Qty: 9 0RF Rx Instructions: Partial Fill upon patient request. hydrocodone-acetaminophen 5-325 mg tablet 1 tab PO Q4-6H PRN (Reason: pain) Qty: 5 0RF Rx Instructions: Partial Fill upon patient request. omeprazole 40 mg capsule,delayed release(DR/EC) 40 mg PO DAILY lisinopril 10 mg tablet 10 mg PO DAILY Colon Herbal Cleanser Capsule PO DAILY furosemide [Lasix] 20 mg tablet 20 mg PO .COMPLEX 30 Days Qty: 12 3RF Rx Instructions: 20 mg PO on Friday, Friday, Friday; Referrals: Elio Drew MD [Primary Care Provider] -
[2021-12-04 05:10] LABS: Hematocrit 37.6 % (42.0-52.0); Hemoglobin 12.3 g/dl (14.0-18.0); Mean Corpuscular HGB Conc 32.7 g/dl (31.0-36.0); Mean Corpuscular Hemoglobin 27.2 pg (27.0-33.0); Mean Platelet Volume 11.1 fL (9.4-12.4); Red Blood Count 4.53 X10*6/uL (4.60-5.80)
[2021-12-04 05:14] LABS: Bacteria Urine 2+ /LPF; Granular Casts Urine 0-2 /LPF; Hyaline Casts Urine 0-2 /LPF; Mucus Urine 2+ /LPF; Squamous Epithelial Cell Urine 2+ /LPF
[2021-12-04 05:16] LABS: Platelet Count 129 X10*3/uL (160-400); White Blood Count 7.7 X10*3/uL (4.8-10.8)
[2021-12-04 05:29] LABS: Alanine Aminotransferase 56 U/L (0-40); Albumin Level 4.2 g/dL (3.5-5.0); Alkaline Phosphatase 127 U/L (39-117); Anion Gap 13 (12-20); Aspartate Amino Transferase 37 U/L (5-37); Bilirubin Total 0.4 mg/dL (0.0-1.0); Blood Urea Nitrogen 22 mg/dL (9-16); Calcium 8.8 mg/dL (8.4-10.2); Carbon Dioxide 27 mmol/L (22-29); Chloride 101 mmol/L (96-108); Creatinine Clr Calc Pharmacy 74.3; Estimated Glomerular Filt Rate 56; Glucose Random 283 mg/dL (60-115); Sodium 137 mmol/L (135-145); Total Protein 7.4 g/dL (6.5-8.0)
--- NOTE | 2021-12-04 06:41 | PC.NURSE ---
pt a&o, no sob or chest pain. Reviewed discharge instructions with pt. pt verbalized understanding.
== END 2021-12-04 06:42 | disposition home or self-care (01) ==
PROVIDERS: Emergency Provider Emergency Medicine; PCP Internal Medicine
DX: N48.1 Balanitis (principal); R73.9 Hyperglycemia, unspecified; I10 Essential (primary) hypertension; I48.0 Paroxysmal atrial fibrillation; E66.9 Obesity, unspecified; Z68.38 Body mass index [BMI] 38.0-38.9, adult; Z79.01 Long term (current) use of anticoagulants; Z79.02 Long term (current) use of antithrombotics/antiplatelets; Z79.899 Other long term (current) drug therapy
CPT/HCPCS: 36415; 80053; 81001; 85027; 99282; 99283

== ENCOUNTER 2021-12-04 07:21 | Outpatient (REF) | payer OTHER, SELFPAY ==
[2021-12-04 08:02] LABS: Hematocrit 38.1 % (42.0-52.0); Hemoglobin 12.5 g/dl (14.0-18.0); Mean Corpuscular HGB Conc 32.8 g/dl (31.0-36.0); Mean Corpuscular Hemoglobin 27.2 pg (27.0-33.0); Mean Platelet Volume 10.9 fL (9.4-12.4); Platelet Count 138 X10*3/uL (160-400); Red Blood Count 4.59 X10*6/uL (4.60-5.80); Red Cell Distribution Width 14.1 % (11.0-16.0); White Blood Count 9.3 X10*3/uL (4.8-10.8)
[2021-12-04 08:20] LABS: Anion Gap 13 (12-20); Blood Urea Nitrogen 21 mg/dL (9-16); Carbon Dioxide 26 mmol/L (22-29); Chloride 101 mmol/L (96-108); Estimated Glomerular Filt Rate 57; Glucose Random 257 mg/dL (60-115); Potassium 4.1 mmol/L (3.3-5.1); Sodium 136 mmol/L (135-145)
== END 2021-12-04 07:22 | disposition home or self-care (01) ==
LOC: HO.LAB 07:21
PROVIDERS: PCP Internal Medicine; Visit Provider Internal Medicine Cardiovascular Disease
DX: I48.0 Paroxysmal atrial fibrillation (principal)
CPT/HCPCS: 36415; 80048; 85027

== ENCOUNTER 2021-12-17 12:25 | Outpatient (REF) | payer OTHER, SELFPAY ==
--- NOTE | ~2021-12-17 | XR_ITS ---
EXAMINATION: XR KNEE AP STANDING, BILATERAL XR KNEE, RIGHT CLINICAL INFORMATION: Right knee pain. COMPARISON: 11/25/2021 TECHNIQUE: AP bilateral standing view of the knees was obtained as well as lateral and sunrise views of the right knee. FINDINGS: Medial and lateral joint space compartments of both knees are maintained and appear unremarkable. [place] and lateral views of the right knee do not demonstrate any evidence of acute fracture or dislocation. There is mild spurring of the patellofemoral joint without significant joint space narrowing. There is minimal suprapatellar fluid. XR/XR knee standing BI IMPRESSION: Mild degenerative change of the right patellofemoral joint.
--- NOTE | ~2021-12-17 | XR_ITS ---
EXAMINATION: XR KNEE AP STANDING, BILATERAL XR KNEE, RIGHT CLINICAL INFORMATION: Right knee pain. COMPARISON: 11/25/2021 TECHNIQUE: AP bilateral standing view of the knees was obtained as well as lateral and sunrise views of the right knee. FINDINGS: Medial and lateral joint space compartments of both knees are maintained and appear unremarkable. [place] and lateral views of the right knee do not demonstrate any evidence of acute fracture or dislocation. There is mild spurring of the patellofemoral joint without significant joint space narrowing. There is minimal suprapatellar fluid. XR/XR knee RT 1V IMPRESSION: Mild degenerative change of the right patellofemoral joint.
== END 2021-12-17 12:26 | disposition home or self-care (01) ==
LOC: HO.HOSX 12:25
PROVIDERS: Visit Provider Physician Assistant
DX: M17.11 Unilateral primary osteoarthritis, right knee (principal); M25.562 Pain in left knee
CPT/HCPCS: 20610; 73560; 73565; J1040

== ENCOUNTER 2022-03-08 08:22 | Outpatient (REF) | payer OTHER, SELFPAY ==
--- NOTE | ~2022-03-08 | US_ITS ---
EXAMINATION: US ABDOMEN COMPLETE CLINICAL INFORMATION: Right upper quadrant pain. Right flank pain. COMPARISON: CT abdomen pelvis 11/26/2018 TECHNIQUE: Real-time imaging of the abdominal viscera. FINDINGS: PANCREAS: Normal. ABDOMINAL AORTA: The proximal, mid, and distal segments are normal in caliber. INFERIOR VENA CAVA: Visualized portions are normal. LIVER: The liver is normal in size. The liver contour is normal. Parenchymal echogenicity is heterogeneous and increased. No solid focal hepatic lesions seen. There is echogenic calcification right hepatic lobe measuring 0.4 x 0.2 x 0.5 cm.. There is no intrahepatic biliary duct dilatation seen. GALLBLADDER: The bladder wall thickness is 0.2 cm.. The gallbladder is physiologically distended without evidence of stones, sludge, polyps, wall thickening or pericholecystic fluid. COMMON BILE DUCT: Normal in caliber measuring 0.7 cm in diameter. RIGHT KIDNEY: Normal. No hydronephrosis. No renal calculi or focal parenchymal lesions. The kidney measures 11.7 cm in maximum dimension. LEFT KIDNEY: Normal. No hydronephrosis. No renal calculi or focal parenchymal lesions. The kidney measures 12.5 cm in maximum dimension. There is an echogenic lesion mid to lower pole measuring 1.7 x 2.3 x 2.2 cm suggestive of AML SPLEEN: Normal. The spleen measures 13.6 cm in maximum dimension. FREE FLUID: None. US/US abdomen complete IMPRESSION: Heterogeneous and echogenic liver parenchyma. There is focal calcification right upper PIC lobe. No solid lesion or intrahepatic ductal dilatation. 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 Similar findings were seen on the previous CT exam 02/26/2019
== END 2022-03-08 08:23 | disposition home or self-care (01) ==
LOC: HO.US 08:22
PROVIDERS: Visit Provider Surgery
DX: R10.11 Right upper quadrant pain (principal)
CPT/HCPCS: 76700

== ENCOUNTER → 2022-04-16 07:16 | Outpatient (BNVA) | payer OTHER, SELFPAY | PROVIDERS: PCP Internal Medicine | DX: Z13.89 Encounter for screening for other disorder (principal) | CPT/HCPCS: 73090; 73130; 99203 ==

== ENCOUNTER → 2022-06-10 15:01 | Outpatient (BNVA) | payer OTHER, SELFPAY | PROVIDERS: PCP Internal Medicine; Referring Provider Internal Medicine; Visit Provider Internal Medicine Cardiovascular Disease | DX: I48.0 Paroxysmal atrial fibrillation (principal); I10 Essential (primary) hypertension | CPT/HCPCS: 93005; 99212 ==

== ENCOUNTER 2022-06-12 06:02 | Outpatient (REF) | payer OTHER, SELFPAY ==
[2022-06-12 06:16] LABS: MANUAL DIFF FLAG NO
[2022-06-12 07:43] LABS: Basophils Percent Auto 0.6 % (0-2); Eosinophils Absolute Auto 0.1 X10*3/uL (0.0-0.4); Eosinophils Percent Auto 2.1 % (0-4); Hematocrit 40.6 % (42.0-52.0); Hemoglobin 13.4 g/dl (14.0-18.0); Imm Gran Abs Auto 0.04 X10*3/uL (0.00-0.03); Imm Gran Pct Auto 0.6 % (0.0-0.4); Lymphocytes Absolute Auto 1.7 X10*3/uL (1.2-4.9); Lymphocytes Percent Auto 25.5 % (20-40); Mean Corpuscular Hemoglobin 28.3 pg (27.0-33.0); Mean Corpuscular Volume 85.8 fL (80.0-98.0); Monocytes Absolute Auto 0.6 X10*3/uL (0.1-1.2); Neutrophils Absolute Auto 4.1 x10*3/uL (2.0-8.3); Neutrophils Percent Auto 62.2 % (45-73); Platelet Count 159 X10*3/uL (160-400); Red Blood Count 4.73 X10*6/uL (4.60-5.80); Red Cell Distribution Width 13.8 % (11.0-16.0); White Blood Count 6.6 X10*3/uL (4.8-10.8)
[2022-06-12 08:25] LABS: Estimated Average Glucose 186 mg/dL; Hemoglobin A1c % 8.1 %
[2022-06-12 08:28] LABS: Alanine Aminotransferase 19 U/L (0-40); Albumin Level 4.4 g/dL (3.5-5.0); Alkaline Phosphatase 77 U/L (39-117); Anion Gap 16 (12-20); Aspartate Amino Transferase 22 U/L (5-37); Bilirubin Total 0.5 mg/dL (0.0-1.0); Blood Urea Nitrogen 24 mg/dL (9-16); Calcium 9.5 mg/dL (8.4-10.2); Carbon Dioxide 26 mmol/L (22-29); Chloride 104 mmol/L (96-108); Cholesterol 174 mg/dL; Estimated Glomerular Filt Rate 57; Glucose Fasting 133 mg/dL (60-99); HDL Cholesterol 49 mg/dL; LDL Cholesterol Calculated 98 mg/dl; Potassium 4.8 mmol/L (3.3-5.1); Sodium 141 mmol/L (135-145); Total Protein 7.3 g/dL (6.5-8.0); Triglycerides 137 mg/dL
[2022-06-12 08:48] LABS: Thyroid Stimulating Hormone 1.82 uIU/mL (0.32-4.0)
== END 2022-06-12 06:03 | disposition home or self-care (01) ==
LOC: HO.LAB 06:02
PROVIDERS: PCP Internal Medicine; Visit Provider Internal Medicine
DX: N28.9 Disorder of kidney and ureter, unspecified (principal); E03.9 Hypothyroidism, unspecified; E78.5 Hyperlipidemia, unspecified; E11.9 Type 2 diabetes mellitus without complications; D64.9 Anemia, unspecified
CPT/HCPCS: 36415; 80053; 80061; 83036; 84443; 85025

== ENCOUNTER → 2022-07-01 14:04 | Outpatient (BNVA) | payer OTHER, SELFPAY | PROVIDERS: PCP Internal Medicine; Visit Provider Orthopaedic Surgery | DX: Z13.89 Encounter for screening for other disorder (principal) ==

== ENCOUNTER 2022-07-29 06:23 | Day surgery (SDC) | payer OTHER, SELFPAY ==
[2022-07-29 06:44] VITALS: BP 167/80; PULSE 59; RESP 16; TEMP 36.4; O2SAT 96; BMI 38.0
--- NOTE | 2022-07-29 08:01 | MHC.SHP ---
Pre-Procedural Eval Section A Date of Service: 07/29/22 The patient is an INPATIENT: No Changes since office visit: No Cold of Flu in the past 2 weeks, No New Medical Problems, No Changes in Medication and No Patient answered all questions The History & Physical has been completed within 30 days and I have reviewed it.: Yes Section B Chief Complaint: Trigger finger, right ring finger Allergies: Allergies Allergy/AdvReac Type Severity Reaction Status Date / Time latex [Latex] Allergy Intermediate RASH Verified 07/29/22 06:45 avocado [Avocado] Allergy Mild UNKNOWN Verified 07/29/22 06:45 banana [Banana] Allergy Mild UNKNOWN Verified 07/29/22 06:45 kiwi [KIWI] Allergy Unknown RASH Verified 07/29/22 06:45 Pistacia Vera (Pistachio) Allergy Unknown RASH Verified 07/29/22 06:45 [PISTACIA VERA (PISTACHIO)] Environmental Allergy Mild RUNNY NOSE Uncoded 07/01/22 14:46 Plan I have reviewed the history and physical and performed a pertinent physical examination on my patient. No changes have occurred unless specified. Time Spent With Patient Time: Total time managing care of this patient today ____ minutes.
--- NOTE | 2022-07-29 08:01 | W.PM.OPN ---
Operative Note Operative Note Date of Service: 07/29/22 Narrative: Operative Note Preop diagnosis: 1. Right ring finger Trigger finger Postop diagnosis: 1. Right ring finger Trigger finger Procedure: 1. Right ring finger A1 porfirio release Surgeon: Eulalia Connors MD Anesthesia: local block using 1% lidocaine with epinephrine Findings: No locking or catching after A1 porfirio release EBL: Less than 5 mL Tourniquet time: None Specimens: None Complications: None Disposition: Brought to recovery room in stable condition Plan: Follow-up for 10-14 days for wound check and suture removal Indications: The patient is 62 years old, with a right ring finger trigger finger that has been unresponsive to nonoperative management. The risks and benefits of operative treatment including but not limited to risk of damage to blood vessels, nerves, tendons, infection, persistent pain, persistent symptoms, recurrence or possible need for additional surgery were discussed with the patient and the patient wishes to proceed with surgery. Procedure: Once consent was obtained a local block was performed in the preop area using a combination of 1% lidocaine with epinephrine. The patient was then brought back to the operating suite and placed on the operative table in supine position. The right upper extremity was prepped and draped in a standard surgical fashion. Once assured that we had a good block, a 1.5 cm oblique incision was made centered over the A1 porfirio of the right ring finger . The incision was made through the skin to the subcutaneous tissues using a #15 blade. Careful dissection was made down to the level of the A1 porfirio using tenotomy scissors, with care being taken to protect the nearby neurovascular structures. A longitudinal incision was made in the A1 porfirio 1st using a #15 blade, then using tenotomy scissors under direct visualization. The A1 porfirio was noted to be thickened. Following our A1 porfirio release, we no longer saw any locking or catching of the digit with flexion and extension. Once satisfied with our A1 porfirio release the wound was copiously irrigated with normal saline and hemostasis was obtained with a brief period of local pressure. The skin edges were reapproximated with some 5.0 nylon suture material and a sterile dressing was applied. The patient appears to have tolerated the procedure well and with no complications. All digits were well vascularized at the conclusion of the case.
[2022-07-29 08:56] VITALS: BP 138/81; PULSE 61; RESP 16; O2SAT 96
== END 2022-07-29 08:59 | disposition home or self-care (01) ==
PROVIDERS: PCP Internal Medicine; Visit Provider Orthopaedic Surgery
PROC: (CPT 26055; principal; 2022-07-29 07:30)
DX: M65.341 Trigger finger, right ring finger (principal); G47.33 Obstructive sleep apnea (adult) (pediatric); G47.36 Sleep related hypoventilation in conditions classified elsewhere; I48.0 Paroxysmal atrial fibrillation; I10 Essential (primary) hypertension; E66.9 Obesity, unspecified; Z68.38 Body mass index [BMI] 38.0-38.9, adult; Z79.01 Long term (current) use of anticoagulants; Z91.040 Latex allergy status
CPT/HCPCS: 26055; J0171; J2795

== ENCOUNTER → 2022-08-13 08:31 | Outpatient (BNVA) | payer OTHER, SELFPAY | PROVIDERS: PCP Internal Medicine; Visit Provider Orthopaedic Surgery | DX: Z13.89 Encounter for screening for other disorder (principal) ==

== ENCOUNTER 2022-09-10 05:58 | Outpatient (REF) | payer OTHER, SELFPAY ==
[2022-09-10 06:14] LABS: MANUAL DIFF FLAG NO
[2022-09-10 07:45] LABS: Basophils Percent Auto 0.5 % (0-2); Eosinophils Absolute Auto 0.1 X10*3/uL (0.0-0.4); Eosinophils Percent Auto 1.6 % (0-4); Hematocrit 38.5 % (42.0-52.0); Hemoglobin 12.8 g/dl (14.0-18.0); Imm Gran Abs Auto 0.02 X10*3/uL (0.00-0.03); Imm Gran Pct Auto 0.3 % (0.0-0.4); Lymphocytes Absolute Auto 1.6 X10*3/uL (1.2-4.9); Lymphocytes Percent Auto 26.9 % (20-40); Mean Corpuscular HGB Conc 33.2 g/dl (31.0-36.0); Mean Corpuscular Hemoglobin 28.8 pg (27.0-33.0); Mean Corpuscular Volume 86.5 fL (80.0-98.0); Mean Platelet Volume 11.7 fL (9.4-12.4); Monocytes Absolute Auto 0.4 X10*3/uL (0.1-1.2); Monocytes Percent Auto 7.3 % (2-11); Neutrophils Absolute Auto 3.7 x10*3/uL (2.0-8.3); Neutrophils Percent Auto 63.4 % (45-73); Platelet Count 124 X10*3/uL (160-400); Red Blood Count 4.45 X10*6/uL (4.60-5.80); Red Cell Distribution Width 12.6 % (11.0-16.0); White Blood Count 5.8 X10*3/uL (4.8-10.8)
[2022-09-10 08:36] LABS: Alanine Aminotransferase 30 U/L (0-40); Albumin Level 4.4 g/dL (3.5-5.0); Alkaline Phosphatase 99 U/L (39-117); Anion Gap 16 (12-20); Aspartate Amino Transferase 24 U/L (5-37); Bilirubin Total 0.6 mg/dL (0.0-1.0); Blood Urea Nitrogen 23 mg/dL (9-16); Calcium 9.1 mg/dL (8.4-10.2); Carbon Dioxide 24 mmol/L (22-29); Chloride 103 mmol/L (96-108); Cholesterol 189 mg/dL; Estimated Glomerular Filt Rate 56; HDL Cholesterol 43 mg/dL; LDL Cholesterol Calculated 96 mg/dl; Potassium 4.5 mmol/L (3.3-5.1); Sodium 138 mmol/L (135-145); Total Protein 7.3 g/dL (6.5-8.0); Triglycerides 250 mg/dL
[2022-09-10 09:02] LABS: Prostate Specific Antigen Scr 1.77 ng/mL (<0.05-4.0); Thyroid Stimulating Hormone 1.57 uIU/mL (0.32-4.0)
[2022-09-10 12:49] LABS: Glucose Fasting 427 mg/dL (60-99)
== END 2022-09-10 05:59 | disposition home or self-care (01) ==
LOC: HO.LAB 05:58
PROVIDERS: PCP Internal Medicine; Visit Provider Internal Medicine
DX: Z00.00 Encounter for general adult medical examination without abnormal findings (principal); E03.9 Hypothyroidism, unspecified; D64.9 Anemia, unspecified; E78.5 Hyperlipidemia, unspecified; N28.9 Disorder of kidney and ureter, unspecified; Z12.5 Encounter for screening for malignant neoplasm of prostate
CPT/HCPCS: 36415; 80053; 80061; 84153; 84443; 85025

== ENCOUNTER 2022-09-11 06:08 | Outpatient (REF) | payer OTHER, SELFPAY ==
[2022-09-11 07:34] LABS: Estimated Average Glucose 243 mg/dL; Hemoglobin A1c % 10.1 %
[2022-09-11 07:43] LABS: Cholesterol 187 mg/dL; Glucose Fasting 279 mg/dL (60-99); HDL Cholesterol 43 mg/dL; LDL Cholesterol Calculated 105 mg/dl; Triglycerides 197 mg/dL
== END 2022-09-11 06:09 | disposition home or self-care (01) ==
LOC: HO.LAB 06:08
PROVIDERS: PCP Internal Medicine; Visit Provider Internal Medicine
DX: R73.9 Hyperglycemia, unspecified (principal); E78.5 Hyperlipidemia, unspecified
CPT/HCPCS: 36415; 80061; 82947; 83036

== ENCOUNTER 2022-09-23 05:52 | Outpatient (REF) | payer OTHER, SELFPAY ==
[2022-09-23 08:08] LABS: Estimated Average Glucose 252 mg/dL; Hemoglobin A1c % 10.4 %
[2022-09-23 08:23] LABS: Glucose Fasting 238 mg/dL (60-99)
== END 2022-09-23 05:53 | disposition home or self-care (01) ==
LOC: HO.LAB 05:52
PROVIDERS: PCP Internal Medicine; Visit Provider Internal Medicine
DX: R73.9 Hyperglycemia, unspecified (principal)
CPT/HCPCS: 36415; 82947; 83036

== ENCOUNTER 2022-10-04 07:20 | Outpatient (REF) | payer OTHER, SELFPAY ==
--- NOTE | ~2022-10-04 | XR_ITS ---
EXAMINATION: XR ELBOW, LEFT CLINICAL INFORMATION: Pain. COMPARISON: None available. TECHNIQUE: AP, lateral, and oblique views of the left elbow. FINDINGS: The bones and soft tissues are normal. No fracture or joint effusion. Alignment is anatomic. Joint spaces are maintained. XR/XR elbow LT min 3V IMPRESSION: Normal left elbow.
== END 2022-10-04 07:21 | disposition home or self-care (01) ==
LOC: HO.HOSX 07:20
PROVIDERS: Visit Provider Physician Assistant
DX: M70.22 Olecranon bursitis, left elbow (principal)
CPT/HCPCS: 73080

== ENCOUNTER 2022-10-07 10:38 | Outpatient (REF) | payer OTHER, SELFPAY ==
[2022-10-07 12:31] LABS: Estimated Average Glucose 232 mg/dL; Hemoglobin A1c % 9.7 %
[2022-10-07 12:36] LABS: Glucose Fasting 125 mg/dL (60-99)
== END 2022-10-07 10:39 | disposition home or self-care (01) ==
LOC: HO.LAB 10:38
PROVIDERS: PCP Internal Medicine; Visit Provider Internal Medicine
DX: R73.9 Hyperglycemia, unspecified (principal)
CPT/HCPCS: 36415; 82947; 83036

== ENCOUNTER → 2022-11-07 14:26 | Outpatient (BNVA) | payer OTHER, SELFPAY | PROVIDERS: PCP Internal Medicine; Visit Provider Surgery | DX: R22.32 Localized swelling, mass and lump, left upper limb (principal) | CPT/HCPCS: 10160 ==

== ENCOUNTER 2022-11-08 13:57 | Outpatient (REF) | payer OTHER, SELFPAY ==
[2022-11-08 17:13] LABS: Estimated Average Glucose 183 mg/dL
[2022-11-08 19:42] LABS: Glucose Random 110 mg/dL (60-115)
== END 2022-11-08 13:58 | disposition home or self-care (01) ==
LOC: HO.LAB 13:57
PROVIDERS: PCP Internal Medicine; Visit Provider Physician Assistant Surgical
DX: E11.9 Type 2 diabetes mellitus without complications (principal); I10 Essential (primary) hypertension; E66.9 Obesity, unspecified
CPT/HCPCS: 36415; 82947; 83036; 99453

== ENCOUNTER 2022-12-03 15:08 | Outpatient (AMB) | payer OTHER, SELFPAY ==
--- NOTE | 2022-12-03 15:22 | A.OFFVIS_ITS ---
Intake Vital Signs 12/03/22 15:23 Height 5 ft 9 in Weight 249 lb 1.957 oz BMI 36.8 BP 140/80 H Blood Pressure Location Lt brachial Position Sitting Pulse 52 Intake Visit Reasons: 6 month f/u Intake Note: 6 month follow-up feeling good Continuous Absorption Process Operator Required: No Allergies latex [Latex] Allergy (Intermediate, Verified 11/08/22 15:11) RASH avocado [Avocado] Allergy (Mild, Verified 11/08/22 15:11) UNKNOWN banana [Banana] Allergy (Mild, Verified 11/08/22 15:11) UNKNOWN kiwi [KIWI] Allergy (Unknown, Verified 11/08/22 15:11) RASH Pistacia Vera (Pistachio) [PISTACIA VERA (PISTACHIO)] Allergy (Unknown, Verified 11/08/22 15:11) RASH Environmental Allergy (Mild, Uncoded 11/07/22 14:54) RUNNY NOSE Medication List - Last Reconciled 12/03/22 by Jasen Chen MD apixaban 5 mg PO BID blood sugar diagnostic (FreeStyle Lite Strips) test daily blood-glucose meter (FreeStyle Lite Meter kit) As directed furosemide (Lasix) 20 mg PO on Friday, Friday, Friday; 30 days lisinopril 10 mg PO DAILY metformin 1,000 mg PO DAILY metoprolol succinate ER 12.5 mg (1/2 x 25 mg) PO DAILY 90 days omeprazole 40 mg PO DAILY rosuvastatin 40 mg PO DAILY triamterene-hydrochlorothiazid 37.5-25 mg 1 tab PO DAILY HPI HPI Comments History of Present Illness Details Tyler comes for follow-up. He says recently he has been getting more symptoms of left-sided chest pressure and palpitations. Symptoms not as bad as persistent atrial fibrillation but short episodes. He denies any prolonged episodes. No bleeding issues or neurologic events. Takes all his medications regularly except for flecainide which currently not on his medication list for unclear reason. Denies any lightheadedness, syncope. Heart failure symptoms. [facility] Medical History Atrial fibrillation HTN (hypertension) Mass of left elbow Nocturnal hypoxemia Obesity Obesity INGA (obstructive sleep apnea) Paroxysmal atrial fibrillation Varicose veins of both lower extremities Surgical History History of hand surgery Hx of colonoscopy Hx of endoscopy Family History Father No problems noted. Mother No problems noted. 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 Current occupational exposures/hazards: No Cognitive needs: No Hearing needs: No Vision needs: Yes Review of Systems Const Denies chills, Denies fatigue, Denies fever(s), Denies frequent falls, Denies weakness, Denies weight gain and Denies weight loss ENT Denies dizziness Card Denies chest pain, Denies leg edema, Denies lightheadedness, Denies palpitations, Denies dyspnea, Denies dyspnea on exertion, Denies orthopnea and Denies other (loss of consciousness) Resp Denies cough, Denies dyspnea and Denies dyspnea on exertion GI Denies hematochezia and Denies change in stool character Musc Denies abnormal gait, Denies muscle weakness, Denies numbness, Denies radiating pain into limb and Denies tingling Neuro Denies abnormal gait, Denies dizziness, Denies frequent falls, Denies numbness, Denies tingling and Denies weakness Endo Denies fatigue and Denies palpitations Physical Exam Vital Signs: Last Vital Signs Pulse 52 12/03/22 15:23 BP 140/80 H 12/03/22 15:23 BMI result Body Mass Index 36.8 Const General: cooperative, comfortable, no acute distress, alert and awake Nutritional Appearance: obese Orientation/consciousness: patient oriented x3 Limitations: no limitations Neck Neck: Yes trachea midline, Yes supple and Yes no JVD Resp Effort & Inspection: normal respiratory effort Auscultation: clear to auscultation bilaterally Cardio Jugular venous distension: no JVD Palpation: normal PMI Rate: regular rate Rhythm: regular rhythm Heart sounds: S1 normal heart sound present and S2 normal heart sound present GI Auscultation: normal bowel sounds Skin General skin exam: no rashes or lesions noted Neuro General: patient oriented x3 and no focal motor deficits Extrem General: Yes no clubbing, cyanosis or edema Psych Appearance: grossly normal Office Procedures EKG Details: EKG shows normal sinus rhythm with PACs with left axis deviation [id number], Complete Assessment & Plan Assessment & Plan (1) Paroxysmal atrial fibrillation: Code(s): I48.0 - Paroxysmal atrial fibrillation Plan: Highly symptomatic paroxysmal atrial fibrillation currently off all antiarrhythmic for some reason. Unclear as to why. He is having short episodes of atrial fibrillation and symptomatic episodes. Will restart flecainide 100 mg b.i.d.. Continue concomitant low-dose metoprolol therapy. Follow-up EKG in 1 weeks time. Continue full oral anticoagulation, currently on Eliquis 5 mg b.i.d.. Semi annual renal function test should be pursued. Continue CPAP therapy. Could to continue to participate and weight loss program. The regular physical activity. Avoidance of stimulants was discussed. Advised to call me with worsening symptoms. (2) HTN (hypertension): Code(s): I10 - Essential (primary) hypertension Plan: Hypertension which is currently well optimized advised to monitor blood pressure at home maintain a log. Goal blood pressure less than 130/84. Low-salt diet was discussed. Continue CPAP therapy. Continue participate in heart healthy lifestyle. Will obtain echocardiogram in near future Follow up in the clinic in 6 months time, sooner p.r.n.. Thank you for allowing me to partake in his care Orders: Orders CA echo transthoracic complete Today I48.0 - Paroxysmal atrial fibrillation Medications: New flecainide 100 mg PO Q12H 60 tabs 5RF Refilled apixaban 5 mg PO BID 60 tabs 11RF Coding Level of Care Code Est Pt Level 4 (61015) Diagnoses Paroxysmal atrial fibrillation I48.0 HTN (hypertension) I10 CPT Codes EKG - CPT: 89364-[id number], Complete ([id number])
[2022-12-03 15:23] VITALS: BP 140/80; PULSE 52; BMI 36.8
== END 2022-12-03 16:08 | disposition home or self-care (01) ==
PROVIDERS: PCP Internal Medicine; Visit Provider Internal Medicine Cardiovascular Disease
DX: I48.0 Paroxysmal atrial fibrillation (principal); I10 Essential (primary) hypertension
CPT/HCPCS: 93010; 99214

== ENCOUNTER → 2022-12-03 15:08 | Outpatient (BNVA) | payer OTHER, SELFPAY | PROVIDERS: PCP Internal Medicine; Visit Provider Internal Medicine Cardiovascular Disease | DX: I48.0 Paroxysmal atrial fibrillation (principal); I10 Essential (primary) hypertension; Z79.899 Other long term (current) drug therapy | CPT/HCPCS: 93005 ==

== ENCOUNTER → 2022-12-11 15:04 | Outpatient (BNVA) | payer OTHER, SELFPAY | PROVIDERS: PCP Internal Medicine; Visit Provider Internal Medicine Cardiovascular Disease ==

== ENCOUNTER 2022-12-17 12:41 | Outpatient (REF) | payer OTHER, SELFPAY ==
--- NOTE | ~2022-12-17 | MR_ITS ---
EXAMINATION: MR ELBOW WITHOUT AND WITH CONTRAST, LEFT CLINICAL INFORMATION: Left elbow pain. Lump or mass. COMPARISON: Left elbow radiograph dated 10/04/2022. TECHNIQUE: Multisequence MR imaging of the left elbow was obtained before and after the IV administration of 10 mL of Gadavist contrast on a high field strength scanner. FINDINGS: Ulnar collateral ligament: Intact. Common flexor tendon: Mildly increased T2 signal adjacent to the common flexor tendon, consistent with mild tendinosis. No measurable tear. Radial collateral ligament: Intact. Common extensor tendon: Mildly increased T2 signal within the proximal intrasubstance of the common extensor tendon, consistent with mild tendinosis. No measurable tear. Biceps/triceps tendon: Intact. Articular cartilage/bone: No marrow edema or evidence of acute osseous injury. No fracture or dislocation. Intact articular cartilage. No osteochondral lesion. Ulnar nerve: Intact. Joint fluid/soft tissues: Within the dorsal subcutaneous tissues adjacent to the olecranon, there is a peripherally enhancing fluid collection measuring 0.9 x 2.1 x 2.1 cm. This demonstrates adjacent soft tissue edema. Findings are decreased in prominence when compared to the prior radiograph and likely indicate olecranon bursitis. Mild adjacent subcutaneous edema extending medially and laterally. Synovial recess versus ganglion cyst ventral to the radial head measuring approximately 0.6 x 1.7 x 2.2 cm. MR/MR elbow LT wo/w con IMPRESSION: 1. Peripherally enhancing fluid collection within the dorsal subcutaneous tissues adjacent to the olecranon measuring up to 2.1 cm with adjacent soft tissue edema. Findings are decreased in prominence when compared to the prior radiograph and likely indicate olecranon bursitis. 2. Synovial recess versus ganglion cyst ventral to the radial head measuring up to 2.2 cm. 3. Mild common flexor and common extensor tendinosis without a measurable tendon tear.
== END 2022-12-17 12:42 | disposition home or self-care (01) ==
LOC: HO.MRI 12:41
PROVIDERS: PCP Internal Medicine; Visit Provider Surgery
DX: R22.32 Localized swelling, mass and lump, left upper limb (principal)
CPT/HCPCS: 73223; A9585

== ENCOUNTER → 2023-01-03 14:47 | Outpatient (REF) | payer OTHER, SELFPAY ==
--- NOTE | 2023-01-03 14:51 | CA_ITS ---
Transthoracic Echocardiogram Patient (Last, First, Middle): Tyler Hicks, Gender: Male Date of : 1960 Age: 62 Procedure Date: 01/03/2023 Procedure Type: Transthoracic Echocardiogram Location: OP Height: 175.26 cm Weight: 112.95 kg BSA: 2.27 m2 Heart Rate: 53 bpm BP: 140 / 80 mmHg Solder Technician: PEYTON Referring MD: Jasen Chen MD Respiratory Therapy Technician: Jasen Chen MD Symptoms: I48.0 - Paroxysmal atrial fibrillation Study Quality: Fair ECG Rhythm: Bradycardia Conclusions: - 1. Normal LV ejection fraction 55-60% with mild LVH with impaired relaxation filling pattern 2. Normal cardiac valvular Dopplers 3. Mildly dilated ascending aorta at 4.2 cm 4. Normal RV systolic pressure 5. No gross pericardial effusion Findings Left Ventricle Normal left ventricular size and systolic function. There is mildly increased left ventricular wall thickness. The visually estimated ejection fraction is between 55-60%. Spectral Doppler is indicative of an impaired relaxation filling pattern. E/E prime ratio is between 8 and 15 consistent with indeterminate filling pressures. Peak GLS is -16.7%, mildly reduced. Right Ventricle Normal right ventricular cavity size and systolic function. Atria The left atrium is normal in size. There is no evidence of interatrial shunt. The right atrium is normal in size. Aortic Valve The aortic valve structure and function is likely normal. There is no aortic valve stenosis. There is no aortic valve regurgitation. Mitral Valve There is mild anterior and posterior mitral leaflet thickening. There is trace mitral valve regurgitation. There is no mitral valve stenosis. Pulmonic Valve The pulmonic valve was not well visualized. Tricuspid Valve Likely normal tricuspid valve structure and function. Tricuspid regurgitation envelope is inadequate for calculation of right ventricular systolic pressure. Normal right atrial pressure. Great Vessels The pulmonary artery was not well visualized. There is mild dilatation of the ascending aorta measuring 4.20 cm. Venous The inferior vena cava is normal in size and collapses greater than 50% with inspiration. Pericardium/Pleural There is no evidence of pericardial effusion. Prior Study Comparison Changes noted compared to prior study dated: 02/23/2021. Ascending aorta is mildly dilated on this study Measurements 2D Linear Measurements IVSd: 1.26 0.6-0.9/0.6-1.0 cm LVIDd: 5.30 3.9-5.3/4.2-5.9 cm LVIDd Index: 2.33 2.4-3.2/2.2-3.1 cm/m2 LVIDs: 3.29 2.0-3.6 cm LVPWd: 1.14 0.7-1.1 cm LA Diam: 4.70 2.7-3.8/3.0-4.0 cm LAIDs Index: 2.07 1.5-2.3 cm/m2 LV Mass: 319.96 67-162/88-224 g LV Mass Index: 140.95 43-95/49-115 g/m2 LVOT Diam: 2.20 3.0+(-)1.3 cm 2D Systolic Function EF 4C: 51.30 >55% EF 2C: 63.00 >55% EF BiP: 56.30 >55% Mitral Valve MV Pk E: 0.85 MV PK A: 0.67 MV Decel Time: 260.00 E/A: 1.30 E'Lateral: 11.00 E'Medial: 8.94 E/E' Med: 9.50 E/E' Lat: 7.70 PHT: 76.00 MVA PHT: 2.89 Decel [place]: 3.26 Aortic Valve AoV Pk Juan: 1.82 AoV Mn Juan: 1.24 AoV VTI: 0.43 AoV Pk Grad: 13.00 Aov Mn Grad: 7.00 YADIRA Cont.VTI: 3.07 LVOT LVOT Pk Juan: 1.52 LVOT Mn Juan: 1.04 LVOT VTI: 0.34 LVOT Pk Grad: 9.00 LVOT Mn Grad: 5.00 LVOT Diam: 2.20 LVOT Area: 3.80 Diastolic Function MV Pk E: 0.85 MV Pk A: 0.67 E/A: 1.30 E'Medial: 8.94 E/E' Med: 9.50 E' Laterial: 11.00 E/E' Lat: 7.70 Right Ventricle TAPSE (mm): 28.00 TVS' Juan: 13.70 Tricuspid Valve RA Press: 3.00 Great Vessels Aorta Sinus of Valsalva: 3.50 2.0-3.5 cm Ao Asc: 4.20 2.1-3.4 cm Pulmonary Valve PV Pk Juan: 1.25 Peak PV Grad: 6.00 Updated in Other Vendor System with Status of Final Jasen Chen MD electronically signed on 01/03/2023 5:00:59 PM with status of Final
== END ==
LOC: HO.CARD 14:47
PROVIDERS: PCP Internal Medicine; Visit Provider Internal Medicine Cardiovascular Disease
DX: I48.0 Paroxysmal atrial fibrillation (principal); R06.02 Shortness of breath
CPT/HCPCS: 93306; 93356

== ENCOUNTER → 2023-01-03 14:51 | Outpatient (BNV) | payer OTHER, SELFPAY | PROVIDERS: PCP Internal Medicine; Visit Provider Internal Medicine Cardiovascular Disease | DX: I48.0 Paroxysmal atrial fibrillation (principal) | CPT/HCPCS: 93306 ==

== ENCOUNTER 2023-01-30 11:13 | Outpatient (AMB) | payer OTHER, SELFPAY ==
[2023-01-30 11:24] VITALS: BP 136/64; PULSE 52; O2SAT 98; BMI 36.1
--- NOTE | 2023-01-30 11:24 | A.OFFPC_ITS ---
Vital Signs 01/30/23 11:24 Height 5 ft 9 in Weight 244 lb 8 oz BMI 36.1 BP 136/64 Blood Pressure Location Lt brachial Position Sitting Pulse 52 Pulse Source Pulse Oximeter Pulse Oximetry (%) 98 Oxygen Delivery Method Room Air Intake Visit Reasons: 3 month f/u Lay Out Former: Not Required per policy Accompanied by: Self / Same As Patient Allergies latex [Latex] Allergy (Intermediate, Verified 01/30/23 11:24) RASH avocado [Avocado] Allergy (Mild, Verified 01/30/23 11:24) UNKNOWN banana [Banana] Allergy (Mild, Verified 01/30/23 11:24) UNKNOWN kiwi [KIWI] Allergy (Unknown, Verified 01/30/23 11:24) RASH Pistacia Vera (Pistachio) [PISTACIA VERA (PISTACHIO)] Allergy (Unknown, Verified 01/30/23 11:24) RASH Environmental Allergy (Mild, Uncoded 01/30/23 11:24) RUNNY NOSE Medication List - Last Reconciled 01/30/23 by Elio Drew MD apixaban 5 mg PO BID blood sugar diagnostic (FreeStyle Lite Strips) test daily blood-glucose meter (FreeStyle Lite Meter kit) As directed flecainide 100 mg PO Q12H furosemide (Lasix) 20 mg PO on Friday, Friday, Friday; 30 days lisinopril 10 mg PO DAILY metformin 1,000 mg PO DAILY metoprolol succinate ER 12.5 mg (1/2 x 25 mg) PO DAILY 90 days omeprazole 40 mg PO DAILY rosuvastatin 40 mg PO DAILY triamterene-hydrochlorothiazid 37.5-25 mg 1 tab PO DAILY Tobacco use date assessed: 10/29/22 Fall risk assessment: No Falls in past year Last assessed Fall Risk: 01/30/23 Dental Screening Dental Screen Date: 01/30/23 Did you have a dental visit in the last 12 months?: No Did you have a dental problem in the last 6 months where you did not have access to dental care?: No Was dental information given to patient?: Patient has dentist HPI 3 month f/u HPI Details DM HTN hyperlipidemia on Rx; doing well; compliant; due for labs PFSH Medical History Mass of left elbow Obesity Nocturnal hypoxemia INGA (obstructive sleep apnea) Varicose veins of both lower extremities Obesity HTN (hypertension) Paroxysmal atrial fibrillation Atrial fibrillation Surgical History Hx of colonoscopy History of hand surgery Hx of endoscopy Family History Father No problems noted. Mother No problems noted. 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 1. Little interest or pleasure in doing things: not at all 2. Feeling down, depressed, or hopeless: not at all 3. Trouble falling or staying asleep, or sleeping too much: not at all 4. Feeling tired or having little energy: not at all 5. Poor appetite or overeating: not at all 6. Feeling bad about yourself - or that you are a failure or have let yourself or your family down: not at all 7. Trouble concentrating on things, such as reading the newspaper or watching television: not at all 8. Moving or speaking so slowly that other people could have noticed. Or the opposite - being so fidgety or restless that you have been moving around a lot more than usual: not at all 9. Thoughts that you would be better off or of hurting yourself in some way: not at all Total score: 0 Depression Screening Interpretation: Negative Source: Developed by Drs. Roddy Martinez, Lizbet Shell, Justin Tai and colleagues, with an educational raghavendra from [employer]. Thrive Questionnaire Date Thrive assessed: 10/29/22 AUDIT C Alcohol Use Questionnaire (AUDIT-C) 1. How often do you have a drink containing alcohol?: Never Total Score: 0 Score Reviewed/Action Taken: Yes LUIS-7 AMB Questionnaire LUIS-7 Date LUIS - 7 assessed: 10/29/22 Source: Developed by Drs. Roddy Martinez, Lizbet Shell, Justin Tai and colleagues, with an educational raghavendra from [employer]. Review of Systems Const Denies chills, Denies headache(s) and Denies weight loss ENT Denies headache(s) Card Denies chest pain, Denies syncope, Denies irregular heart rhythm and Denies dyspnea Resp Denies chest congestion, Denies cough and Denies dyspnea GI Denies abdominal pain, Denies change in stool character, Denies nausea and Denies vomiting Musc Denies deformity and Denies joint swelling Neuro Denies syncope and Denies headache(s) Physical exam (Primary Care) Vital Signs: Last Vital Signs Pulse 52 01/30/23 11:24 BP 136/64 01/30/23 11:24 Pulse Ox 98 01/30/23 11:24 Oxygen Delivery Method Room Air 01/30/23 11:24 BMI result Body Mass Index 36.1 Tobacco/Smoking Status: Tobacco use Status Tobacco use date assessed 10/29/22 01/30/23 11:25 Patient Tobacco Use Status Never used Tobacco 01/30/23 11:25 e-Cigarette/Vaping Use Never Used 01/30/23 11:25 PHQ-9: PHQ-9 Score PHQ-9: Total score 0 01/30/23 11:37 Depression Screening Interpretation: Negative Thrive Assessment: Date of Thrive Assessment Date Thrive assessed 10/29/22 01/30/23 11:25 Const General: cooperative, comfortable, no acute distress and alert Neck Neck: Yes no lymphadenopathy Thyroid: Thyroid normal Resp Effort & Inspection: normal respiratory effort Auscultation: clear to auscultation bilaterally Percussion: percussion normal Cardio Jugular venous distension: no JVD Palpation: normal PMI Rate: regular rate Rhythm: regular rhythm Heart sounds: S1 normal heart sound present and S2 normal heart sound present GI Inspection: Yes normal to inspection Palpation (GI): No hepatosplenomegaly present Skin General skin exam: no rashes or lesions noted Extrem General: Yes no clubbing, cyanosis or edema Results AMB Hemoglobin A1c AMB Hemoglobin A1c 6.6 % Last Edit by JANKI Taylor on 01/30/23 11:38 Results Reviewed Results Reviewed: Laboratory Last Values Hgb A1c (Clinic) 6.6 % (4.0-6.0) H 01/30/23 11:25 Assessment and Plan Assessment & Plan (1) Diabetes mellitus with coincident hypertension: Code(s): E11.9 - Type 2 diabetes mellitus without complications; I10 - Essential (primary) hypertension Plan: stable; same rx; do labs (2) Hyperlipidemia: Code(s): E78.5 - Hyperlipidemia, unspecified Plan: stable; same rx (3) HTN (hypertension): Code(s): I10 - Essential (primary) hypertension Plan: stable; same rx Orders: Orders Glucose Fasting Today R73.9 - Hyperglycemia, unspecified Hemoglobin A1c Today R73.9 - Hyperglycemia, unspecified AMB Hemoglobin A1c Today E11.9 - Type 2 diabetes mellitus without complications, I10 - Essential (primary) hypertension Lipid Panel Today E78.5 - Hyperlipidemia, unspecified Coding Level of Care Code Est Pt Level 4 (12514) Diagnoses Diabetes mellitus with coincident hypertension E11.9; I10 Hyperlipidemia E78.5 HTN (hypertension) I10
== END 2023-01-30 11:43 | disposition home or self-care (01) ==
PROVIDERS: PCP Internal Medicine; Visit Provider Internal Medicine
DX: E11.9 Type 2 diabetes mellitus without complications (principal); I10 Essential (primary) hypertension; E78.5 Hyperlipidemia, unspecified
CPT/HCPCS: 83036; 99214

== ENCOUNTER 2023-02-19 09:19 | Emergency (ER) | payer OTHER, SELFPAY ==
[2023-02-19 09:57] VITALS: BP 152/77; PULSE 56; RESP 18; TEMP 37; O2SAT 97; BMI 36.9
--- NOTE | 2023-02-19 10:18 | ED_ITS ---
HPI - Back Pain/Injury General Chief Complaint: Back Pain/Injury Stated Complaint: back pain Time Seen by Provider: 02/19/23 09:37 Source: patient and RN notes reviewed Mode of arrival: ambulatory Limitations: no limitations History of Present Illness HPI Narrative: This is a 63-year-old male, with a past medical history of diabetes, hypertension, atrial fibrillation on Eliquis, presenting to the emergency depart ment with complaints of back pain which started yesterday. Patient states that he was working outside on the fence and bent over and immediately felt pain into his low back. Patient reports that the pain has only progressively gotten worse. He denies any saddle anesthesia, denies any urinary bowel incontinence. Denies any fevers, chills, chest pain, shortness of breath, abdominal pain, nausea, vomiting or diarrhea. Denies history of similar back pain in the past. Denies any urinary or bowel symptoms. No other complaints or concerns at this time. MD elicited complaint: back pain Pertinent past history: recent trauma Onset (ago): day(s) Timing: constant Severity: moderate Similar Symptoms Previously: No Quality: aching Location: lumbar spine Radiation: none Exacerbating factors: movement Relieving factors: none Context: bending Associated symptoms: denies other symptoms Work related injury: No Related Data Home Medications Medication Instructions Recorded Confirmed omeprazole 40 mg capsule,delayed 40 mg PO DAILY 06/27/20 01/30/23 release metformin 1,000 mg tablet 1,000 mg PO DAILY 11/08/22 01/30/23 Previous Rx's Medication Instructions Recorded triamterene 37.5 1 tab PO DAILY #90 tabs 10/22/20 mg-hydrochlorothiazide 25 mg tablet lisinopril 10 mg tablet 10 mg PO DAILY #90 tabs 03/14/22 metoprolol succinate 25 mg 12.5 mg (1/2 x 25 mg) PO DAILY 90 07/15/22 tablet,extended release 24 hr days #45 tabs blood-glucose meter (FreeStyle #1 ea 09/26/22 Lite Meter kit) blood sugar diagnostic (FreeStyle #100 ea 10/04/22 Lite Strips) furosemide 20 mg tablet (Lasix) 20 mg PO .COMPLEX edema 30 days 11/20/22 #12 tabs rosuvastatin 40 mg tablet 40 mg PO DAILY #90 tabs 11/26/22 apixaban 5 mg tablet 5 mg PO BID #60 tabs 12/03/22 flecainide 100 mg tablet 100 mg PO Q12H #60 tabs 12/03/22 acetaminophen 650 mg 1,300 mg (2 x 650 mg) PO Q12H #30 02/19/23 tablet,extended release (Tylenol 8 tabs Hour) cyclobenzaprine 10 mg tablet 10 mg PO TID PRN muscle spasm #15 02/19/23 tabs lidocaine 5 % topical patch 1 patch topical DAILY #30 ea 02/19/23 (Lidoderm) oxycodone 5 mg tablet 5 mg PO Q6H PRN severe pain (scale 02/19/23 score 7-10) #7 tabs Allergies Allergy/AdvReac Type Severity Reaction Status Date / Time latex [Latex] Allergy Intermediate RASH Verified 01/30/23 11:24 avocado [Avocado] Allergy Mild UNKNOWN Verified 01/30/23 11:24 banana [Banana] Allergy Mild UNKNOWN Verified 01/30/23 11:24 kiwi [KIWI] Allergy Unknown RASH Verified 01/30/23 11:24 Pistacia Vera (Pistachio) Allergy Unknown RASH Verified 01/30/23 11:24 [PISTACIA VERA (PISTACHIO)] Environmental Allergy Mild RUNNY NOSE Uncoded 01/30/23 11:24 Review of Systems Review of Systems: Yes all other systems are reviewed and are negative Constitutional: Constitutional: Reports as per [facility] Past Medical History Medical History Mass of left elbow Obesity Nocturnal hypoxemia INGA (obstructive sleep apnea) Varicose veins of both lower extremities Obesity HTN (hypertension) Paroxysmal atrial fibrillation Atrial fibrillation Surgical History Hx of colonoscopy History of hand surgery Hx of endoscopy Family History Family History Father No problems noted. Mother No problems noted. 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 Current occupational exposures/hazards: No Cognitive needs: No Hearing needs: No Vision needs: Yes Physical Exam Vital Signs: Vital Signs: Last Vital Signs Temp 98.6 F 02/19/23 09:57 Pulse 56 02/19/23 09:57 Resp 18 02/19/23 09:57 BP 152/77 H 02/19/23 09:57 Pulse Ox 97 02/19/23 09:57 O2 Del Method Room Air 02/19/23 09:57 BMI result Body Mass Index 36.9 Const: General: cooperative, comfortable and no acute distress Orientation/consciousness: patient oriented x3 Limitations: no limitations HEENT: Head: Yes normal to inspection, Yes normocephalic and Yes atraumatic Ears: hearing grossly normal bilaterally General nose exam: Normal external nose present Face and sinus: Yes normal facial exam Mouth: Normal oral and palatal mucosa present, oropharynx normal and moist mucous membranes Throat: Yes posterior oropharynx normal Eyes: General: appearance normal, both eyes and all related structures Eyelids: Yes eyelids normal Conjunctivae: conjunctivae normal Sclerae: sclerae normal Pupils: Equal, round and reactive pupils present EOM: EOMs intact bilaterally Neck: Neck: Yes normal visual inspection, Yes full ROM and Yes no lymphadenopathy Lymphatic: no lymphadenopathy noted Chest: Chest palpation & inspection: normal inspection of the chest Resp: Effort & Inspection: normal respiratory effort and able to speak in complete sentences Auscultation: clear to auscultation bilaterally, no crackles, no rales, no rhonchi and no wheezes Cardio: Rate: regular rate Rhythm: regular rhythm Heart sounds: S1 normal heart sound present and S2 normal heart sound present GI: Inspection: Yes normal to inspection Back/Spine/Pelvis: Other: No C-spine, T-spine, or L-spine tenderness to palpation. Patient has tenderness palpation along the left low musculature. Pain worsening with positional changes. Distal sensation circulation intact. Strength 5/5 in lower extremities. Patellar reflexes 2+ Skin: General skin exam: no rashes or lesions noted Trauma: no lacerations or abrasions Wounds: no wounds Neuro: General: patient oriented x3 and moves all extremities Cranial nerves: Yes Equal, round and reactive pupils present Extrem: General: Yes normal to inspection Right upper extremity: normal to inspection Left upper extremity: normal to inspection Right lower extremity: normal to inspection Left lower extremity: normal to inspection Medical Decision Making Medical Decision Making MDM Narrative: 63-year-old male, with a past medical history of AFib on Eliquis, hypertension, INGA, presenting to the emergency department with complaints of back pain since yesterday. Patient bent over and immediately felt pain in his left low back. This patient presents with back pain most consistent with lumbar back spasm. Differential diagnoses includes lumbago versus musculoskeletal spasm / strain versus sciatica. No back pain red flags on history or physical. Presentation not consistent with malignancy (lack of history of malignancy, lack of B symptoms), fracture (no trauma, no bony tenderness to palpation), cauda equina syndrome (no bowel or urinary incontinence/retention, no saddle anesthesia, no distal weakness), pyelonephritis (afebrile, no CVAT, no urinary symptoms). Given the clinical picture, no indication for imaging at this time. Will treat with Tylenol, oxycodone for severe pain only, and muscle relaxants. Encouraged to follow-up with primary care physician. Given return precautions. Differential Diagnosis Differential Diagnoses: The differential diagnosis associated with the presentation includes See above Discharge Plan Discharge Clinical Impression: Lumbar paraspinal muscle spasm Patient Disposition: Home, Self-Care Instructions: Muscle Spasm (ED), Back Pain (ED) Additional Instructions: You presenting to the emergency department today due to back pain. Your symptoms are consistent with a muscle spasm. Please rest, use ice or heat, gentle stretching, gentle massage on your back. Please take Tylenol as directed as needed for pain. I am also prescribing you oxycodone, take this for severe pain only. Please be advised that this can cause drowsiness, do not drink alcohol or drive while taking this medication. I am also prescribing you a muscle relaxant called Flexeril. This can also cause drowsiness, do not drink alcohol or drive while taking this medication. Please follow-up with your primary care physician regarding this visit. If any new or worsening symptoms occur including but not limited to chest pain, shortness of breath, abdominal pain, numbness or tingling into your groin, urinary or bowel incontinence, please return for re-evaluation. Prescriptions: New cyclobenzaprine 10 mg tablet 10 mg PO TID PRN (Reason: muscle spasm) Qty: 15 0RF lidocaine [Lidoderm] 5 % adhesive patch,medicated 1 patch topical DAILY Qty: 30 0RF Rx Instructions: leave on most painful area for up to 12 hrs oxycodone 5 mg tablet 5 mg PO Q6H PRN (Reason: severe pain (scale score 7-10)) Qty: 7 0RF Rx Instructions: Partial Fill upon patient request. acetaminophen [Tylenol 8 Hour] 650 mg tablet extended release 1,300 mg PO Q12H Qty: 30 0RF No Action triamterene-hydrochlorothiazid 37.5-25 mg tablet 1 tab PO DAILY Qty: 90 1RF Hold Instructions: Doctor's Order lisinopril 10 mg tablet 10 mg PO DAILY Qty: 90 8RF metoprolol succinate 25 mg tablet extended release 24 hr 12.5 mg PO DAILY 90 Days Qty: 45 3RF (DME) FreeStyle Lite Strips Strip See Rx Instructions .Route Qty: 100 3RF Rx Instructions: test daily furosemide [Lasix] 20 mg tablet 20 mg PO .COMPLEX 30 Days Qty: 12 3RF Rx Instructions: 20 mg PO on Friday, Friday, Friday; rosuvastatin 40 mg tablet 40 mg PO DAILY Qty: 90 8RF omeprazole 40 mg capsule,delayed release(DR/EC) 40 mg PO DAILY (DME) blood-glucose meter [FreeStyle Lite Meter] Kit See Rx Instructions .Route Qty: 1 0RF Rx Instructions: As directed flecainide 100 mg tablet 100 mg PO Q12H Qty: 60 5RF apixaban 5 mg tablet 5 mg PO BID Qty: 60 11RF metformin 1,000 mg tablet 1,000 mg PO DAILY
== END 2023-02-19 10:46 | disposition home or self-care (01) ==
PROVIDERS: Emergency Provider Emergency Medicine; PCP Internal Medicine
DX: M62.830 Muscle spasm of back (principal); I48.91 Unspecified atrial fibrillation; Z79.01 Long term (current) use of anticoagulants; Z79.899 Other long term (current) drug therapy
CPT/HCPCS: 99283; 99284

== ENCOUNTER 2023-04-23 08:36 | Outpatient (REF) | payer OTHER, SELFPAY ==
[2023-04-23 10:25] LABS: Cholesterol 171 mg/dL (<200); Glucose Fasting 106 mg/dL (60-99); HDL Cholesterol 53 mg/dL (>40); LDL Cholesterol Calculated 93 mg/dL (<100); Triglycerides 125 mg/dL (<150)
[2023-04-23 10:38] LABS: Estimated Average Glucose 126 mg/dL
== END 2023-04-23 08:37 | disposition home or self-care (01) ==
LOC: HO.LAB 08:36
PROVIDERS: PCP Internal Medicine; Visit Provider Internal Medicine
DX: R73.9 Hyperglycemia, unspecified (principal); E78.5 Hyperlipidemia, unspecified
CPT/HCPCS: 36415; 80061; 82947; 83036

== ENCOUNTER 2023-04-24 09:09 | Outpatient (AMB) | payer OTHER, SELFPAY ==
[2023-04-24 09:17] VITALS: BP 142/78; PULSE 54; O2SAT 98; BMI 35.3
--- NOTE | 2023-04-24 09:17 | A.OFFPC_ITS ---
Vital Signs 04/24/23 09:17 Height 5 ft 9 in Weight 239 lb BMI 35.3 BP 142/78 H Blood Pressure Location Lt brachial Position Sitting Pulse 54 Pulse Source Pulse Oximeter Pulse Oximetry (%) 98 Oxygen Delivery Method Room Air Intake Visit Reasons: 3mon F/U Shingle Weaver Required: No Information Interpreted: non-clinical & clinical Accompanied by: Self / Same As Patient Allergies latex [Latex] Allergy (Intermediate, Verified 04/24/23 09:18) RASH avocado [Avocado] Allergy (Mild, Verified 04/24/23 09:18) UNKNOWN banana [Banana] Allergy (Mild, Verified 04/24/23 09:18) UNKNOWN kiwi [KIWI] Allergy (Unknown, Verified 04/24/23 09:18) RASH Pistacia Vera (Pistachio) [PISTACIA VERA (PISTACHIO)] Allergy (Unknown, Verified 04/24/23 09:18) RASH Environmental Allergy (Mild, Uncoded 04/24/23 09:18) RUNNY NOSE Medication List - Last Reconciled 04/24/23 by Elio Drew MD acetaminophen ER (Tylenol 8 Hour) 1,300 mg (2 x 650 mg) PO Q12H apixaban 5 mg PO BID blood sugar diagnostic (FreeStyle Lite Strips) test daily blood-glucose meter (FreeStyle Lite Meter kit) As directed cyclobenzaprine 10 mg PO TID PRN flecainide 100 mg PO Q12H furosemide 20 mg PO 3XW lidocaine 5% (Lidoderm) 1 patch topical DAILY lisinopril 10 mg PO DAILY metformin 1,000 mg PO DAILY metoprolol succinate ER 12.5 mg (1/2 x 25 mg) PO DAILY 90 days omeprazole 40 mg PO DAILY oxycodone 5 mg PO Q6H PRN rosuvastatin 40 mg PO DAILY triamterene-hydrochlorothiazid 37.5-25 mg 1 tab PO DAILY Tobacco use date assessed: 10/29/22 Fall risk assessment: No Falls in past year Last assessed Fall Risk: 04/24/23 Dental Screening Dental Screen Date: 04/24/23 Did you have a dental visit in the last 12 months?: No Did you have a dental problem in the last 6 months where you did not have access to dental care?: No Was dental information given to patient?: Patient has dentist HPI 3mon F/U HPI Details DM HTN and hyperlip on rx; doing well; compliant [facility] Medical History Mass of left elbow Obesity Nocturnal hypoxemia INGA (obstructive sleep apnea) Varicose veins of both lower extremities Obesity HTN (hypertension) Paroxysmal atrial fibrillation Atrial fibrillation Surgical History Hx of colonoscopy History of hand surgery Hx of endoscopy Family History Father No problems noted. Mother No problems noted. 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 1. Little interest or pleasure in doing things: not at all 2. Feeling down, depressed, or hopeless: not at all 3. Trouble falling or staying asleep, or sleeping too much: not at all 4. Feeling tired or having little energy: not at all 5. Poor appetite or overeating: not at all 6. Feeling bad about yourself - or that you are a failure or have let yourself or your family down: not at all 7. Trouble concentrating on things, such as reading the newspaper or watching television: not at all 8. Moving or speaking so slowly that other people could have noticed. Or the opposite - being so fidgety or restless that you have been moving around a lot more than usual: not at all 9. Thoughts that you would be better off or of hurting yourself in some way: not at all Total score: 0 Depression Screening Interpretation: Negative Depression Screening Done: Yes Source: Developed by Drs. Roddy Martinez, Lizbet Shell, Justin Tai and colleagues, with an educational raghavendra from [employer]. Thrive Questionnaire Date Thrive assessed: 10/29/22 LUIS-7 AMB Questionnaire LUIS-7 Date LUIS - 7 assessed: 10/29/22 Source: Developed by Drs. Roddy Martinez, Lizbet Shell, Justin Tai and colleagues, with an educational raghavendra from [employer]. Review of Systems Const Denies chills, Denies headache(s) and Denies weight loss ENT Denies headache(s) Card Denies chest pain, Denies syncope, Denies irregular heart rhythm and Denies dyspnea Resp Denies chest congestion, Denies cough and Denies dyspnea GI Denies abdominal pain, Denies change in stool character, Denies nausea and Denies vomiting Musc Denies deformity and Denies joint swelling Neuro Denies syncope and Denies headache(s) Physical exam (Primary Care) Vital Signs: Last Vital Signs Pulse 54 04/24/23 09:17 BP 142/78 H 04/24/23 09:17 Pulse Ox 98 04/24/23 09:17 Oxygen Delivery Method Room Air 04/24/23 09:17 BMI result Body Mass Index 35.3 Tobacco/Smoking Status: Tobacco use Status Tobacco use date assessed 10/29/22 12 09:23 Patient Tobacco Use Status Never used Tobacco 04/24/23 09:23 e-Cigarette/Vaping Use Never Used 04/24/23 09:23 PHQ-9: PHQ-9 Score PHQ-9: Total score 0 04/24/23 09:27 Depression Screening Interpretation: Negative Thrive Assessment: Date of Thrive Assessment Date Thrive assessed 10/29/22 04/24/23 09:23 Const General: cooperative, comfortable, no acute distress and alert Neck Neck: Yes no lymphadenopathy Thyroid: Thyroid normal Resp Effort & Inspection: normal respiratory effort Auscultation: clear to auscultation bilaterally Percussion: percussion normal Cardio Jugular venous distension: no JVD Palpation: normal PMI Rate: regular rate Rhythm: regular rhythm Heart sounds: S1 normal heart sound present and S2 normal heart sound present GI Inspection: Yes normal to inspection Palpation (GI): No hepatosplenomegaly present Skin General skin exam: no rashes or lesions noted Extrem General: Yes no clubbing, cyanosis or edema Assessment and Plan Assessment & Plan (1) Hyperlipidemia: Code(s): E78.5 - Hyperlipidemia, unspecified Plan: stable; same rx (2) Diabetes mellitus with coincident hypertension: Code(s): E11.9 - Type 2 diabetes mellitus without complications; I10 - Essential (primary) hypertension Plan: stable; same rx (3) HTN (hypertension): Code(s): I10 - Essential (primary) hypertension Plan: stable; same rx Orders: Orders Lipid Panel Today E78.5 - Hyperlipidemia, unspecified Comprehensive [place]. Panel Fast Today N28.9 - Disorder of kidney and ureter, unspecified Microalbumin, Random (w Creat) Today E11.69 - Type 2 diabetes mellitus with other specified complication, E66.01 - Morbid (severe) obesity due to excess calories Hemoglobin A1c Today R73.9 - Hyperglycemia, unspecified Complete Blood Count Auto Diff Today D64.9 - Anemia, unspecified Coding Level of Care Code Est Pt Level 4 (62569) Diagnoses Hyperlipidemia E78.5 Diabetes mellitus with coincident hypertension E11.9; I10 HTN (hypertension) I10
== END 2023-04-24 09:42 | disposition home or self-care (01) ==
PROVIDERS: PCP Internal Medicine; Visit Provider Internal Medicine
DX: E78.5 Hyperlipidemia, unspecified (principal); E11.9 Type 2 diabetes mellitus without complications; I10 Essential (primary) hypertension
CPT/HCPCS: 99214

== ENCOUNTER 2023-06-12 14:57 | Outpatient (AMB) | payer MEDICARE, SELFPAY ==
[2023-06-12 15:23] VITALS: BP 120/70; PULSE 61; BMI 36.1
--- NOTE | 2023-06-12 15:23 | MHC.OFFVIS ---
Intake Vital Signs 06/12/23 15:23 Height 5 ft 9 in Weight 244 lb 11.41 oz BMI 36.1 BP 120/70 Blood Pressure Location Lt brachial Position Sitting Pulse 61 Intake Visit Reasons: 6 MON FUP/sleep Intake Note: 6 month follow-up with ekg Pulmonary would like you to talk about a cpap for patient Borematic Machine Operator Required: No Allergies latex [Latex] Allergy (Intermediate, Verified 04/24/23 09:18) RASH avocado [Avocado] Allergy (Mild, Verified 04/24/23 09:18) UNKNOWN banana [Banana] Allergy (Mild, Verified 04/24/23 09:18) UNKNOWN kiwi [KIWI] Allergy (Unknown, Verified 04/24/23 09:18) RASH Pistacia Vera (Pistachio) [PISTACIA VERA (PISTACHIO)] Allergy (Unknown, Verified 04/24/23 09:18) RASH Environmental Allergy (Mild, Uncoded 04/24/23 09:18) RUNNY NOSE Medication List - Last Reconciled 06/12/23 by Jasen Chen MD acetaminophen ER (Tylenol 8 Hour) 1,300 mg (2 x 650 mg) PO Q12H apixaban 5 mg PO BID blood sugar diagnostic (FreeStyle Lite Strips) test daily blood-glucose meter (FreeStyle Lite Meter kit) As directed cyclobenzaprine 10 mg PO TID PRN flecainide 100 mg PO Q12H furosemide 20 mg PO 3XW lisinopril 10 mg PO DAILY metformin 1,000 mg PO DAILY metoprolol succinate ER 12.5 mg (1/2 x 25 mg) PO DAILY 90 days omeprazole 40 mg PO DAILY oxycodone 5 mg PO Q6H PRN rosuvastatin 40 mg PO DAILY triamterene-hydrochlorothiazid 37.5-25 mg 1 tab PO DAILY HPI HPI Comments History of Present Illness Details Tyler comes for follow-up. He has retired. He is feeling well. He said he is lost about 40 lb. He says he feels very well with no atrial fibrillation episodes. Blood pressures been well controlled. Denies any exertional chest pain or shortness of breath. Denies lightheadedness, syncope. Takes all his medications. No bleeding issues or neurologic events. He currently is not using CPAP therapy says that he never got the machine. Address whether to worry do the studies he has not currently interested in pursuing that. [facility] Medical History Mass of left elbow Obesity Nocturnal hypoxemia INGA (obstructive sleep apnea) Varicose veins of both lower extremities Obesity HTN (hypertension) Paroxysmal atrial fibrillation Atrial fibrillation Surgical History Hx of colonoscopy History of hand surgery Hx of endoscopy Family History Father No problems noted. Mother No problems noted. 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 Current occupational exposures/hazards: No Cognitive needs: No Hearing needs: No Vision needs: Yes Review of Systems Const Denies chills, Denies fatigue, Denies fever(s), Denies frequent falls, Denies weakness, Denies weight gain and Denies weight loss ENT Denies dizziness Card Denies chest pain, Denies leg edema, Denies lightheadedness, Denies palpitations, Denies dyspnea, Denies dyspnea on exertion, Denies orthopnea and Denies other (loss of consciousness) Resp Denies cough, Denies dyspnea and Denies dyspnea on exertion GI Denies hematochezia and Denies change in stool character Musc Denies abnormal gait, Denies muscle weakness, Denies numbness, Denies radiating pain into limb and Denies tingling Neuro Denies abnormal gait, Denies dizziness, Denies frequent falls, Denies numbness, Denies tingling and Denies weakness Endo Denies fatigue and Denies palpitations Physical Exam Vital Signs: Last Vital Signs Pulse 61 06/12/23 15:23 BP 120/70 06/12/23 15:23 BMI result Body Mass Index 36.1 Const General: cooperative, comfortable, no acute distress, alert and awake Nutritional Appearance: obese Orientation/consciousness: patient oriented x3 Limitations: no limitations Neck Neck: Yes trachea midline, Yes supple and Yes no JVD Resp Effort & Inspection: normal respiratory effort Auscultation: clear to auscultation bilaterally Cardio Jugular venous distension: no JVD Palpation: normal PMI Rate: regular rate Rhythm: regular rhythm Heart sounds: S1 normal heart sound present and S2 normal heart sound present GI Auscultation: normal bowel sounds Skin General skin exam: no rashes or lesions noted Neuro General: patient oriented x3 and no focal motor deficits Extrem General: Yes no clubbing, cyanosis or edema Psych Appearance: grossly normal Office Procedures EKG Details: EKG shows normal sinus rhythm with pulmonary disease pattern with left anterior fascicular block with LVH criteria with nonspecific ST T wave changes [id number], Complete Assessment & Plan Assessment & Plan (1) Paroxysmal atrial fibrillation: Code(s): I48.0 - Paroxysmal atrial fibrillation Plan: Highly symptomatic paroxysmal atrial fibrillation without any obvious clinical recurrence at this point time. Continue current antiarrhythmic drug therapy with flecainide which has helped him a lot. Continue concomitant metoprolol therapy for AV kenneth blocking. Continue full oral anticoagulation, currently on Eliquis 5 mg b.i.d.. Semi annual renal function test to be pursued. Discussed strongly that he should consider CPAP therapy as this is likely causing structural changes in heart and making more prone to get developed recurrent atrial fibrillation which may be difficult to control. He understands and he wants to think about it. Continue participate in weight loss program. Continue aggressive blood pressure control. (2) HTN (hypertension): Code(s): I10 - Essential (primary) hypertension Plan: Hypertension which is currently well optimized advised to monitor blood pressure at home maintain a log. Goal blood pressure less than 130/84. Low-salt diet was discussed. Initiation of CPAP therapy was discussed. Continue participate in weight loss program and regular physical activity. Aggressive control of diabetes goal hemoglobin A1c less than 7%. (3) Thoracic aortic aneurysm: Code(s): I71.20 - Thoracic aortic aneurysm, without rupture, unspecified Plan: Mild thoracic aortic aneurysm. No interventions required from surgical perspective. Continue monitor by echocardiogram on annual basis. Continue aggressive control blood pressure. Advised to avoid sudden strenuous isometric exercise. Follow up in the clinic in 6 months time, sooner p.r.n.. Thank you for allowing me to partake in his care Coding Level of Care Code Est Pt Level 4 (02585) Diagnoses Paroxysmal atrial fibrillation I48.0 HTN (hypertension) I10 Thoracic aortic aneurysm I71.20 CPT Codes EKG - CPT: 16041-[id number], Complete ([id number])
== END 2023-06-12 15:49 | disposition home or self-care (01) ==
PROVIDERS: PCP Internal Medicine; Visit Provider Internal Medicine Cardiovascular Disease
DX: I48.0 Paroxysmal atrial fibrillation (principal); I10 Essential (primary) hypertension; I71.20 Thoracic aortic aneurysm, without rupture, unspecified
CPT/HCPCS: 93010; 99214

== ENCOUNTER → 2023-06-12 14:57 | Outpatient (BNVA) | payer MEDICARE, SELFPAY | PROVIDERS: PCP Internal Medicine; Visit Provider Internal Medicine Cardiovascular Disease | DX: I48.0 Paroxysmal atrial fibrillation (principal); I71.20 Thoracic aortic aneurysm, without rupture, unspecified; I10 Essential (primary) hypertension | CPT/HCPCS: 93005; 99212 ==

== ENCOUNTER 2023-07-25 09:02 | Outpatient (AMB) | payer MEDICARE, SELFPAY ==
[2023-07-25 09:03] VITALS: BP 146/86; PULSE 80; O2SAT 97; BMI 36.0
--- NOTE | 2023-07-25 09:03 | MHC.PC.OV ---
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 Required: No Dental Detail Representative: Not Required per policy Accompanied by: Self / Same As Patient Allergies latex [Latex] Allergy (Intermediate, Verified 07/25/23 09:04) RASH avocado [Avocado] Allergy (Mild, Verified 07/25/23 09:04) UNKNOWN banana [Banana] Allergy (Mild, Verified 07/25/23 09:04) UNKNOWN kiwi [KIWI] Allergy (Unknown, Verified 07/25/23 09:04) RASH Pistacia Vera (Pistachio) [PISTACIA VERA (PISTACHIO)] Allergy (Unknown, Verified 07/25/23 09:04) RASH Environmental Allergy (Mild, Uncoded 07/25/23 09:04) RUNNY NOSE Medication List - Last Reconciled 07/25/23 by Elio Drew MD acetaminophen ER (Tylenol 8 Hour) 1,300 mg (2 x 650 mg) PO Q12H apixaban 5 mg PO BID blood-glucose meter ([employer] Ver[employer] Flex Start kit) As directed cyclobenzaprine 10 mg PO TID PRN flecainide 100 mg PO Q12H furosemide 20 mg PO 3XW lisinopril 10 mg PO DAILY metformin 1,000 mg PO DAILY metoprolol succinate ER 12.5 mg (1/2 x 25 mg) PO DAILY omeprazole 40 mg PO DAILY oxycodone 5 mg PO Q6H PRN rosuvastatin 40 mg PO DAILY triamterene-hydrochlorothiazid 37.5-25 mg 1 tab PO DAILY Tobacco use date assessed: 07/25/23 Fall risk assessment: No Falls in past year Last assessed Fall Risk: 07/25/23 Dental Screening Dental Screen Date: 07/25/23 Did you have a dental visit in the last 12 months?: Yes Did you have a dental problem in the last 6 months where you did not have access to dental care?: No Was dental information given to patient?: Patient has dentist HPI 3mth f/u HPI Details DM HTN and hyperli on rx; compliant PFSH Medical History Mass of left elbow Obesity Nocturnal hypoxemia INGA (obstructive sleep apnea) Varicose veins of both lower extremities Obesity HTN (hypertension) Paroxysmal atrial fibrillation Atrial fibrillation Surgical History Hx of colonoscopy History of hand surgery Hx of endoscopy Family History Father No problems noted. Mother No problems noted. 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 Roddy Martinez, Lizbet Shell, Justin Tai and colleagues, with an educational raghavendra from [employer]. Review of Systems Const Denies chills, Denies headache(s) and Denies weight loss ENT Denies headache(s) Card Denies chest pain, Denies syncope, Denies irregular heart rhythm and Denies dyspnea Resp Denies chest congestion, Denies cough and Denies dyspnea GI Denies abdominal pain, Denies change in stool character, Denies nausea and Denies vomiting Musc Denies deformity and Denies joint swelling Neuro Denies syncope and Denies headache(s) Physical exam (Primary Care) Vital Signs: Last Vital Signs Pulse 80 07/25/23 09:03 BP 146/86 H 07/25/23 09:03 Pulse Ox 97 07/25/23 09:03 Oxygen Delivery Method Room Air 07/25/23 09:03 BMI result Body Mass Index 36.0 Tobacco/Smoking Status: Tobacco use Status Tobacco use date assessed 07/25/23 07/25/23 09:05 Patient Tobacco Use Status Never used Tobacco 07/25/23 09:05 e-Cigarette/Vaping Use Never Used 07/25/23 09:05 Thrive Assessment: Date of Thrive Assessment Date Thrive assessed 10/29/22 07/25/23 09:05 Const General: cooperative, comfortable, no acute distress and alert Neck Neck: Yes no lymphadenopathy Thyroid: Thyroid normal Resp Effort & Inspection: normal respiratory effort Auscultation: clear to auscultation bilaterally Percussion: percussion normal Cardio Jugular venous distension: no JVD Palpation: normal PMI Rate: regular rate Rhythm: regular rhythm Heart sounds: S1 normal heart sound present and S2 normal heart sound present GI Inspection: Yes normal to inspection Palpation (GI): No hepatosplenomegaly present Skin General skin exam: no rashes or lesions noted Extrem General: Yes no clubbing, cyanosis or edema Assessment and Plan Assessment & Plan (1) Hyperlipidemia: Code(s): E78.5 - Hyperlipidemia, unspecified Plan: stable; same rx (2) Diabetes mellitus with coincident hypertension: Code(s): E11.9 - Type 2 diabetes mellitus without complications; I10 - Essential (primary) hypertension Plan: stable; same rx (3) HTN (hypertension): Code(s): I10 - Essential (primary) hypertension Plan: stable Orders: Orders Glucose Fasting Today R73.9 - Hyperglycemia, unspecified Hemoglobin A1c Today R73.9 - Hyperglycemia, unspecified Lipid Panel Today E78.5 - Hyperlipidemia, unspecified Coding Level of Care Code Est Pt Level 4 (60921) Diagnoses Hyperlipidemia E78.5 Diabetes mellitus with coincident hypertension E11.9; I10 HTN (hypertension) I10
== END 2023-07-25 09:33 | disposition home or self-care (01) ==
PROVIDERS: PCP Internal Medicine; Visit Provider Internal Medicine
DX: E78.5 Hyperlipidemia, unspecified (principal); E11.9 Type 2 diabetes mellitus without complications; I10 Essential (primary) hypertension
CPT/HCPCS: 99214

== ENCOUNTER 2023-08-26 06:13 | Day surgery (SDC) | payer MEDICARE, SELFPAY ==
[2023-08-22 10:47] VITALS: BMI 36.6
--- NOTE | 2023-08-25 11:40 | HO.ANESPROP2 ---
HPI - Anesthesia Eval Consult details Narrative: 63yo M for Colonoscopy Eliquis for afib [facility] Active Problems Active Problems: All Active Problems Thoracic aortic aneurysm (Acute) Hyperlipidemia (Acute) Olecranon bursitis of left elbow (Acute) Diabetes mellitus with coincident hypertension (Acute) Physical exam (Acute) Trigger finger, right ring finger (Acute) Right upper quadrant abdominal pain (Acute) Patellofemoral arthritis of right knee (Acute) Trigger finger, left ring finger (Acute) Obesity (Acute) Heel pain (Acute) Foot pain, left (Acute) Obesity (Acute) Shortness of breath (Acute) Abnormal exercise tolerance test (Acute) Varicose veins of left lower extremity with inflammation (Acute) Snoring (Acute) Hypersomnia (Acute) Mass of left elbow (Acute) Nocturnal hypoxemia (Acute) INGA (obstructive sleep apnea) (Acute) Varicose veins of both lower extremities (Acute) Obesity (Acute) HTN (hypertension) (Acute) Paroxysmal atrial fibrillation (Acute) Past Medical History Medical History (Updated 08/25/23 @ 11:20 by Bev Almonte RN) CVA (cerebral vascular accident) Hyperlipidemia GERD (gastroesophageal reflux disease) Diabetes Mass of left elbow Nocturnal hypoxemia INGA (obstructive sleep apnea) Varicose veins of both lower extremities Obesity HTN (hypertension) Paroxysmal atrial fibrillation Family History Family History Father No problems noted. Mother No problems noted. 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 Current occupational exposures/hazards: No Cognitive needs: No Hearing needs: No Vision needs: Yes Meds Allergies Allergy/AdvReac Type Severity Reaction Status Date / Time kiwi [KIWI] Allergy Intermediate RASH Verified 09/08/23 12:41 latex [Latex] Allergy Intermediate RASH Verified 09/08/23 12:41 Pistacia Vera (Pistachio) Allergy Intermediate RASH Verified 09/08/23 12:41 [PISTACIA VERA (PISTACHIO)] avocado [Avocado] Allergy Unknown UNKNOWN Verified 09/08/23 12:41 banana [Banana] Allergy Unknown UNKNOWN Verified 09/08/23 12:41 prednisone AdvReac Severe Unknown Verified 09/08/23 12:41 Environmental Allergy Mild RUNNY NOSE Uncoded 09/08/23 12:41 Home Medications ?Medication ?Instructions ?Recorded ?Confirmed ?Last Taken ?Type omeprazole 40 mg capsule,delayed 40 mg PO DAILY 06/27/20 08/22/23 Unknown History release metformin 1,000 mg tablet 1,000 mg PO DAILY 11/08/22 08/22/23 Unknown History Exam Height,Weight and Vital Signs: Height 5 ft 8.5 in Weight 110.677 kg Assessment and Plan Assessment Anesthesia Assessment: Chart Reviewed
[2023-08-26 06:37] VITALS: BMI 36.5
[2023-08-26 06:54] VITALS: BP 147/84; PULSE 77; RESP 16; TEMP 36.8; O2SAT 95
[2023-08-26] MEDS: Lactated Ringers 1,000 ML 100 ML IVCONT (07:06)
[2023-08-26 07:14] LABS: Glucose, Whole Blood 131 mg/dL (60-115)
--- NOTE | 2023-08-26 07:33 | P.CONAN_ITS ---
[facility] Active Problems Active Problems: All Active Problems Thoracic aortic aneurysm (Acute) Hyperlipidemia (Acute) Olecranon bursitis of left elbow (Acute) Diabetes mellitus with coincident hypertension (Acute) Physical exam (Acute) Trigger finger, right ring finger (Acute) Right upper quadrant abdominal pain (Acute) Patellofemoral arthritis of right knee (Acute) Trigger finger, left ring finger (Acute) Obesity (Acute) Heel pain (Acute) Foot pain, left (Acute) Obesity (Acute) Shortness of breath (Acute) Abnormal exercise tolerance test (Acute) Varicose veins of left lower extremity with inflammation (Acute) Snoring (Acute) Hypersomnia (Acute) Mass of left elbow (Acute) Nocturnal hypoxemia (Acute) INGA (obstructive sleep apnea) (Acute) Varicose veins of both lower extremities (Acute) Obesity (Acute) HTN (hypertension) (Acute) Paroxysmal atrial fibrillation (Acute) Past Medical History Medical History (Updated 08/25/23 @ 11:20 by Bev Almonte RN) CVA (cerebral vascular accident) Hyperlipidemia GERD (gastroesophageal reflux disease) Diabetes Mass of left elbow Nocturnal hypoxemia INGA (obstructive sleep apnea) Varicose veins of both lower extremities Obesity HTN (hypertension) Paroxysmal atrial fibrillation Family History Family History Father No problems noted. Mother No problems noted. Family history of problems with anesthesia: No Surgical History Surgical History (Updated 08/22/23 @ 10:52 by Jenny Molina RN) Hx of colonoscopy History of hand surgery Hx of endoscopy History of Problems with Anesthesia: No Social History Social History Housing: House Alcohol intake: never Patient Tobacco Use Status: Never used Tobacco e-Cigarette/Vaping Use: Never Used Second Hand Smoke Exposure: No Use of substances other than those prescribed or required for medical reasons: No Are you DNR?: No Advance Directives: No Advance Directives Information Provided: Yes service: No Current occupational status: employed 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 Current occupational exposures/hazards: No Cognitive needs: No Hearing needs: No Vision needs: Yes Meds Allergies Allergy/AdvReac Type Severity Reaction Status Date / Time kiwi [KIWI] Allergy Intermediate RASH Verified 08/22/23 10:47 latex [Latex] Allergy Intermediate RASH Verified 07/25/23 09:04 Pistacia Vera (Pistachio) Allergy Intermediate RASH Verified 08/22/23 10:47 [PISTACIA VERA (PISTACHIO)] avocado [Avocado] Allergy Unknown UNKNOWN Verified 08/22/23 10:47 banana [Banana] Allergy Unknown UNKNOWN Verified 08/22/23 10:47 prednisone AdvReac Severe Unknown Verified 08/26/23 06:41 Environmental Allergy Mild RUNNY NOSE Uncoded 07/25/23 09:04 Active Medications: Current Medications Lactated Ringer's (Lr) 1,000 mls @ 100 mls/hr IVCONT .Q10H KIM Last Admin: 08/26/23 07:06 Dose: 100 mls/hr Home Medications ?Medication ?Instructions ?Recorded ?Confirmed ?Last Taken ?Type omeprazole 40 mg capsule,delayed 40 mg PO DAILY 06/27/20 08/22/23 Unknown History release metformin 1,000 mg tablet 1,000 mg PO DAILY 11/08/22 08/22/23 Unknown History Exam Height,Weight and Vital Signs: Height 5 ft 9 in Weight 112.207 kg Last Vital Signs Temp 98.2 F 08/26/23 06:54 Pulse 77 08/26/23 06:54 Resp 16 08/26/23 06:54 BP 147/84 H 08/26/23 06:54 Pulse Ox 95 08/26/23 06:54 O2 Del Method Room Air 08/26/23 06:54 Pertinent Lab Results Pertinent Lab Results: Laboratory Tests 08/26/23 07:10 POC Glucose 131 H Airway Mallampati Class: III TM Dist: >3cm Neck ROM: Full Loose/Missing/Broken Teeth: No Heart: rrr Lungs: clear Assessment and Plan Final Anesthetic Review Family History of Problems with Anesthesia: No History of Problems with Anesthesia: No NPO: Yes ASA Class: III Final Preanesthetic Review: No Changes in Pt Med Stat, Meds/Allgs Chart Reviewed, Consent Obtained/Reviewed and Anes Risks/Benef Reviewed Patient Risk: Intermediate Procedure Risk: Low Anesthetic Plan Anesthetic Plan: MAC: Disposition: Standard PACU
--- NOTE | 2023-08-26 07:42 | P.HPSUR_ITS ---
Pre-Procedural Eval Section A - 24 Hr Update-Section A only Date of Service: 08/26/23 Section B - Complete if H&P > 30 days Chief Complaint: screening Details of Present Illness: see H&P no changes Relevant Family History (Specify if Yes): No Relevant Social History: None Present Medications: see Short Stay Collaborative assessment Medical History: No relevant PMH History of Previous Operations: No relevant previous surgery Allergies: Allergies Allergy/AdvReac Type Severity Reaction Status Date / Time kiwi [KIWI] Allergy Intermediate RASH Verified 08/22/23 10:47 latex [Latex] Allergy Intermediate RASH Verified 07/25/23 09:04 Pistacia Vera (Pistachio) Allergy Intermediate RASH Verified 08/22/23 10:47 [PISTACIA VERA (PISTACHIO)] avocado [Avocado] Allergy Unknown UNKNOWN Verified 08/22/23 10:47 banana [Banana] Allergy Unknown UNKNOWN Verified 08/22/23 10:47 prednisone AdvReac Severe Unknown Verified 08/26/23 06:41 Environmental Allergy Mild RUNNY NOSE Uncoded 07/25/23 09:04 Review of Systems Sugical H&P ROS: Negative: Constitution, Cardiovascular, Respiratory, Neurological, Psychiatric, Hem-Onc, Allergic/Immunologic, Gastrointestinal, Genitourinary, Musculoskeletal, Integumentary, Endocrine and Eyes/Ear s/Nose/Throat Exam Surgical H&P Exam: Normal: HEENT, Normal: Heart, Normal: Lungs, Normal: Extremities, Normal: Abdomen, Normal: Skin and Normal: Neurological Plan Diagnosis/Plan: Unchanged I have reviewed the history and physical and performed a pertinent physical examination on my patient. No changes have occurred unless specified. Time Spent With Patient Time: Total time managing care of this patient today ____ minutes.
[2023-08-26 08:17] VITALS: BP 120/57; PULSE 70; RESP 18; TEMP 36.4; O2SAT 95
[2023-08-26 08:32] VITALS: BP 126/69; PULSE 63; RESP 20; TEMP 36.5; O2SAT 96
--- NOTE | 2023-08-26 08:44 | OP_ITS ---
DATE OF SERVICE: 08/26/2023 SURGEON: Sean Villatoro MD INDICATIONS: Colon cancer screening. PREOPERATIVE DIAGNOSIS: POSTOPERATIVE DIAGNOSIS: PROCEDURE PERFORMED: Colonoscopy to the terminal ileum. ESTIMATED BLOOD LOSS: COMPLICATIONS: ANESTHESIA: Monitored anesthesia care. ASSISTANTS: SPECIMENS: DESCRIPTION OF PROCEDURE: A history and physical was performed. The risks and benefits of the procedure were explained to the patient. Informed consent was obtained. The patient was placed in the left lateral decubitus position. The Olympus pediatric video colonoscope was introduced into the rectum after digital rectal exam was performed and was found to be normal. The scope was advanced to the cecum without difficulty. The cecum was identified by transillumination, palpation, and identification of ileocecal valve. Examination was performed. The scope was removed. He tolerated the procedure well and was returned to the recovery area in stable condition. FINDINGS: The terminal ileum was examined and appeared normal. The visualized colonic mucosa was normal. The quality of the prep was good. No polyps were identified. There were a few diverticula seen scattered throughout the colon and no mass lesions were identified. Retroflexed examination showed some small internal hemorrhoids. IMPRESSION: Normal colonoscopy. RECOMMENDATION: 1. Follow up as needed. 2. Repeat colonoscopy is recommended in 10 years for average risk individuals. MD BG Allison/GARTHL / [id number]
== END 2023-08-26 09:01 | disposition home or self-care (01) ==
PROVIDERS: PCP Internal Medicine; Visit Provider Internal Medicine Gastroenterology
PROC: 0DJD8ZZ Inspection of Lower Intestinal Tract, Via Natural or Artificial Opening Endoscopic (ICD-10-PCS; CPT 45378; principal; 2023-08-26 07:30)
DX: Z12.11 Encounter for screening for malignant neoplasm of colon (principal); Z86.010 Personal history of colon polyps; K57.30 Diverticulosis of large intestine without perforation or abscess without bleeding; K64.8 Other hemorrhoids; K21.9 Gastro-esophageal reflux disease without esophagitis; I48.91 Unspecified atrial fibrillation; E78.5 Hyperlipidemia, unspecified; E11.9 Type 2 diabetes mellitus without complications; G47.33 Obstructive sleep apnea (adult) (pediatric); Z86.73 Personal history of transient ischemic attack (TIA), and cerebral infarction without residual deficits; Z79.01 Long term (current) use of anticoagulants; Z79.84 Long term (current) use of oral hypoglycemic drugs; Z79.899 Other long term (current) drug therapy; Z91.040 Latex allergy status; Z88.8 Allergy status to other drugs, medicaments and biological substances
CPT/HCPCS: G0105; 82947

== ENCOUNTER 2023-09-08 12:28 | Outpatient (AMB) | payer MEDICARE, SELFPAY ==
[2023-09-08 12:40] VITALS: BP 144/86; PULSE 84; O2SAT 98; BMI 36.5
--- NOTE | 2023-09-08 12:40 | A.OFFPC_ITS ---
Vital Signs 09/08/23 12:40 Height 5 ft 9 in Weight 247 lb BMI 36.5 BP 144/86 H Blood Pressure Location Lt brachial Position Sitting Pulse 84 Pulse Source Pulse Oximeter Pulse Oximetry (%) 98 Oxygen Delivery Method Room Air Intake Visit Reasons: Annual Exam Meter Mechanic Required: No Associate Drafter: Not Required per policy Accompanied by: Self / Same As Patient Allergies kiwi [KIWI] Allergy (Intermediate, Verified 09/08/23 12:41) RASH latex [Latex] Allergy (Intermediate, Verified 09/08/23 12:41) RASH Pistacia Vera (Pistachio) [PISTACIA VERA (PISTACHIO)] Allergy (Intermediate, Verified 09/08/23 12:41) RASH avocado [Avocado] Allergy (Unknown, Verified 09/08/23 12:41) UNKNOWN banana [Banana] Allergy (Unknown, Verified 09/08/23 12:41) UNKNOWN prednisone Adverse Reaction (Severe, Verified 09/08/23 12:41) Unknown Environmental Allergy (Mild, Uncoded 09/08/23 12:41) RUNNY NOSE Medication List - Last Reconciled 09/09/23 by Elio Drew MD acetaminophen ER (Tylenol 8 Hour) 1,300 mg (2 x 650 mg) PO Q12H apixaban 5 mg PO BID blood-glucose meter ([employer] Verio Flex Start kit) As directed blood-glucose meter,continuous (Dexcom G7 Geometry Tutor) As directed blood-glucose sensor (Dexcom G7 Sensor device) As directed cyclobenzaprine 10 mg PO TID PRN flecainide 100 mg PO Q12H furosemide 20 mg PO 3XW lisinopril 10 mg PO DAILY metformin 1,000 mg PO DAILY metoprolol succinate ER 12.5 mg (1/2 x 25 mg) PO DAILY omeprazole 40 mg PO DAILY oxycodone 5 mg PO Q6H PRN rosuvastatin 40 mg PO DAILY triamterene-hydrochlorothiazid 37.5-25 mg 1 tab PO DAILY Tobacco use date assessed: 07/25/23 Fall risk assessment: No Falls in past year Last assessed Fall Risk: 09/08/23 Dental Screening Dental Screen Date: 07/25/23 HPI Annual Exam HPI Details DM HTN Hyperlipidemia and afib; compliant with meds [facility] Medical History (Updated 08/25/23 @ 11:20 by Bev Almonte RN) CVA (cerebral vascular accident) Hyperlipidemia GERD (gastroesophageal reflux disease) Diabetes Mass of left elbow Nocturnal hypoxemia INGA (obstructive sleep apnea) Varicose veins of both lower extremities Obesity HTN (hypertension) Paroxysmal atrial fibrillation Surgical History Hx of colonoscopy History of hand surgery Hx of endoscopy Family History Father No problems noted. Mother No problems noted. 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 1. Little interest or pleasure in doing things: not at all 2. Feeling down, depressed, or hopeless: not at all 3. Trouble falling or staying asleep, or sleeping too much: not at all 4. Feeling tired or having little energy: not at all 5. Poor appetite or overeating: not at all 6. Feeling bad about yourself - or that you are a failure or have let yourself or your family down: not at all 7. Trouble concentrating on things, such as reading the newspaper or watching television: not at all 8. Moving or speaking so slowly that other people could have noticed. Or the opposite - being so fidgety or restless that you have been moving around a lot more than usual: not at all 9. Thoughts that you would be better off or of hurting yourself in some way: not at all Total score: 0 Depression Screening Interpretation: Negative Depression Screening Done: Yes [id number] - PHQ-9 Billing: Yes Source: Developed by Drs. Roddy Martinez, Lizbet Shell, Justin Tai and colleagues, with an educational raghavendra from [employer]. Thrive Questionnaire Date Thrive assessed: 09/08/23 I am a: Patient What is your living situation today?: I have a steady place to live Within the past 12 months, did the food you bought not last and you didn't have the money to get more?: Never true Within the past 12 months, did you worry whether your food would run out before you got money to buy more?: Never true Do you have trouble paying for medicines?: No Do you have trouble getting transportation to medical appointments?: No Do you have trouble paying your heating and electricity bill?: No Do you have trouble taking care of your child, family member or friend?: No Do you have trouble with day-to-day activities such as bathing, preparing meals, shopping, managing finances, etc.?: No Are you currently unemployed and looking for a job?: No Are you interested in more education?: No Please select the resources that you would like help with: None THRIVE Score: 0 AUDIT C Alcohol Use Questionnaire (AUDIT-C) 1. How often do you have a drink containing alcohol?: Never Total Score: 0 Score Reviewed/Action Taken: Yes LUIS-7 AMB Questionnaire LUIS-7 Date LUIS - 7 assessed: 09/08/23 Feeling nervous, anxious, or on edge: 0 = Not at all Not being able to stop or control worryin = Not at all Worrying too much about different things: 0 = Not at all Trouble relaxin = Not at all Being so restless that it is hard to sit still: 0 = Not at all Becoming easily annoyed or irritable: 0 = Not at all Feeling afraid as if something awful might happen: 0 = Not at all Total LUIS-7 score (0-4 normal; 5-9 mild; 10-14 moderate; 15-21 severe): 0 Source: Developed by Drs. Roddy Martinez, Lizbet Shell, Justin Tai and colleagues, with an educational raghavendra from [employer]. LUIS-7 Assessment Billing LUIS-7 Assessment Tool: LUIS-7 Assessment 51300 Review of Systems Const Denies chills, Denies fatigue, Denies headache(s) and Denies weight loss Eyes Denies change in vision, Denies diplopia and Denies eye pain ENT Denies vertigo, Denies dizziness, Denies headache(s) and Denies nasal discharge Card Denies chest pain, Denies rapid heart rate and Denies dyspnea on exertion Resp Denies chest congestion, Denies cough, Denies pain with cough and Denies dyspnea on exertion GI Denies abdominal pain, Denies hematochezia and Denies change in bowel habits Musc Denies myalgias, Denies arthralgias and Denies joint swelling Skin/Breast Denies lesions and Denies unusual bruising Neuro Denies vertigo, Denies dizziness, Denies headache(s) and Denies focal weakness Endo Denies fatigue Physical exam (Primary Care) Vital Signs: Last Vital Signs Pulse 84 09/08/23 12:40 BP 144/86 H 09/08/23 12:40 Pulse Ox 98 09/08/23 12:40 Oxygen Delivery Method Room Air 09/08/23 12:40 BMI result Body Mass Index 36.5 Tobacco/Smoking Status: Tobacco use Status Tobacco use date assessed 07/25/23 09/08/23 12:42 Patient Tobacco Use Status Never used Tobacco 09/08/23 12:42 e-Cigarette/Vaping Use Never Used 09/08/23 12:42 PHQ-9: PHQ-9 Score PHQ-9: Total score 0 09/08/23 12:56 Depression Screening Interpretation: Negative Thrive Assessment: Date of Thrive Assessment Date Thrive assessed 09/08/23 09/08/23 12:42 Const General: cooperative, healthy appearing and no acute distress Orientation/consciousness: oriented to person, oriented to place and oriented to time [facility] Head: Yes normal to inspection, Yes normocephalic and Yes atraumatic Mouth: Normal oral and palatal mucosa present and tongue normal Throat: Yes posterior oropharynx normal and Yes uvula midline Eyes General: appearance normal, both eyes and all related structures Neck Neck: Yes normal visual inspection, Yes full ROM and Yes no lymphadenopathy Thyroid: Thyroid normal Carotids: normal carotid upstroke Chest Chest palpation & inspection: normal inspection of the chest Resp Effort & Inspection: normal respiratory effort and able to speak in complete sentences Auscultation: clear to auscultation bilaterally Cardio Jugular venous distension: no JVD Palpation: normal PMI Rate: regular rate Rhythm: regular rhythm Heart sounds: S1 normal heart sound present and S2 normal heart sound present GI Inspection: Yes normal to inspection Palpation (GI): Soft to palpation and No hepatosplenomegaly present Auscultation: normal bowel sounds General: Yes no CVA tenderness Back/Spine/Pelvis Back: no CVA tenderness Skin General skin exam: no rashes or lesions noted Neuro General: oriented to person, oriented to place and oriented to time Extrem General: Yes normal to inspection and Yes full ROM Results AMB Hemoglobin A1c AMB Hemoglobin A1c 6.6 % Last Edit by JANKI Taylor on 09/08/23 12:57 Results Reviewed Results Reviewed: Laboratory Last Values Hgb A1c (Clinic) 6.6 % (4.0-6.0) H 09/08/23 12:44 Assessment and Plan Assessment & Plan (1) Diabetes mellitus with coincident hypertension: Code(s): E11.9 - Type 2 diabetes mellitus without complications; I10 - Essential (primary) hypertension Plan: stable; same rx (2) Physical exam: Code(s): Z00.00 - Encounter for general adult medical examination without abnormal findings Plan: do labs (3) Hyperlipidemia: Code(s): E78.5 - Hyperlipidemia, unspecified Plan: stable; same rx (4) Paroxysmal atrial fibrillation: Comment: follows w/HCS Code(s): I48.0 - Paroxysmal atrial fibrillation Plan: stable; same rx Orders: Orders AMB Hemoglobin A1c 09/08/23 E11.9 - Type 2 diabetes mellitus without complications, I10 - Essential (primary) hypertension Lipid Panel Today Z13.220 - Encounter for screening for lipoid disorders Hemoglobin A1c Today R73.9 - Hyperglycemia, unspecified Prostate Specific Antigen Scr Today Z00.00 - Encounter for general adult medical examination without abnormal findings Thyroid Stimulating Hormone Today Z13.29 - Encounter for screening for other suspected endocrine disorder Complete Blood Count Auto Diff Today Z13.0 - Encounter for screening for diseases of the blood and blood-forming organs and certain disorders involving the immune mechanism Comprehensive [place]. Panel Fast Today Z13.9 - Encounter for screening, unspecified Coding Level of Care Code Est Pt Prev Care >65y(01718) Diagnoses Diabetes mellitus with coincident hypertension E11.9; I10 Physical exam Z00.00 Hyperlipidemia E78.5 Paroxysmal atrial fibrillation I48.0 Additional Codes LUIS-7 Assessment Billing - LUIS-7 Assessment Tool: LUIS-7 Assessment [id number] ([id number])
== END 2023-09-08 13:08 | disposition home or self-care (01) ==
LOC: HO.HMGH 12:31
PROVIDERS: PCP Internal Medicine; Visit Provider Internal Medicine
DX: E11.9 Type 2 diabetes mellitus without complications (principal); I10 Essential (primary) hypertension
CPT/HCPCS: 83036; 99397

== ENCOUNTER 2023-10-22 06:43 | Outpatient (REF) | payer MEDICARE, SELFPAY ==
[2023-10-22 07:05] LABS: MANUAL DIFF FLAG NO
[2023-10-22 07:45] LABS: Estimated Average Glucose 134 mg/dL; Hemoglobin A1c % 6.3 % (<6.0)
[2023-10-22 07:51] LABS: Basophils Percent Auto 0.7 % (0-2); Eosinophils Absolute Auto 0.1 X10*3/uL (0.0-0.4); Eosinophils Percent Auto 1.2 % (0-4); Hematocrit 35.5 % (42.0-52.0); Hemoglobin 11.5 g/dl (14.0-18.0); Imm Gran Abs Auto 0.01 X10*3/uL (0.00-0.03); Imm Gran Pct Auto 0.2 % (0.0-0.4); Lymphocytes Absolute Auto 1.3 X10*3/uL (1.2-4.9); Lymphocytes Percent Auto 21.6 % (20-40); Mean Corpuscular HGB Conc 32.4 g/dl (31.0-36.0); Mean Corpuscular Hemoglobin 27.4 pg (27.0-33.0); Mean Corpuscular Volume 84.5 fL (80.0-98.0); Mean Platelet Volume 10.8 fL (9.4-12.4); Monocytes Absolute Auto 0.5 X10*3/uL (0.1-1.2); Monocytes Percent Auto 7.8 % (2-11); Neutrophils Percent Auto 68.5 % (45-73); Platelet Count 159 X10*3/uL (160-400); Red Cell Distribution Width 13.1 % (11.0-16.0); White Blood Count 5.8 X10*3/uL (4.8-10.8)
[2023-10-22 08:14] LABS: Alanine Aminotransferase 14 U/L (0-40); Albumin Level 4.3 g/dL (3.5-5.0); Alkaline Phosphatase 69 U/L (39-117); Anion Gap 14 (12-20); Aspartate Amino Transferase 17 U/L (5-37); Bilirubin Total 0.3 mg/dL (0.0-1.0); Blood Urea Nitrogen 22 mg/dL (9-16); Calcium 9.6 mg/dL (8.4-10.2); Carbon Dioxide 27 mmol/L (22-29); Chloride 104 mmol/L (96-108); Cholesterol 155 mg/dL (<200); Estimated Glomerular Filt Rate > 60; Glucose Fasting 125 mg/dL (60-99); HDL Cholesterol 47 mg/dL (>40); LDL Cholesterol Calculated 77 mg/dL (<100); Sodium 141 mmol/L (135-145); Total Protein 7.5 g/dL (6.5-8.0); Triglycerides 158 mg/dL (<150)
[2023-10-22 08:24] LABS: Prostate Specific Antigen Scr 0.84 ng/mL (<0.05-4.0)
[2023-10-22 08:33] LABS: Thyroid Stimulating Hormone 2.27 uIU/mL (0.32-4.0)
[2023-10-22 12:27] LABS: Creatinine Urine 382.84 mg/dL; Microalbum/Creatinine Ratio Ur 249.4 ug/mg cr (<30)
== END 2023-10-22 06:44 | disposition home or self-care (01) ==
LOC: HO.LAB 06:43
PROVIDERS: PCP Internal Medicine; Visit Provider Internal Medicine
DX: Z00.00 Encounter for general adult medical examination without abnormal findings (principal); N28.9 Disorder of kidney and ureter, unspecified; D64.9 Anemia, unspecified; E11.69 Type 2 diabetes mellitus with other specified complication; E11.65 Type 2 diabetes mellitus with hyperglycemia; E66.01 Morbid (severe) obesity due to excess calories; E78.5 Hyperlipidemia, unspecified; Z13.0 Encounter for screening for diseases of the blood and blood-forming organs and certain disorders involving the immune mechanism; Z13.29 Encounter for screening for other suspected endocrine disorder; Z13.220 Encounter for screening for lipoid disorders; Z12.5 Encounter for screening for malignant neoplasm of prostate
CPT/HCPCS: 36415; 80053; 80061; 82043; 82570; 83036; 84153; 84443; 85025

== ENCOUNTER 2023-12-09 14:45 | Outpatient (AMB) | payer MEDICARE, SELFPAY ==
--- NOTE | 2023-12-09 15:02 | MHC.OFFVIS ---
Vital Signs 12/09/23 15:03 12/09/23 15:04 Height 5 ft 9 in 5 ft 9 in Weight 244 lb 11.41 oz BMI 36.1 BP 118/72 Blood Pressure Location Lt brachial Lt brachial Position Sitting Sitting Pulse 61 Intake Visit Reasons: 6 month f/u Intake Note: 6 month follow-up with ekg Fisheries Officer Required: No Allergies kiwi [KIWI] Allergy (Intermediate, Verified 09/08/23 12:41) RASH latex [Latex] Allergy (Intermediate, Verified 09/08/23 12:41) RASH Pistacia Vera (Pistachio) [PISTACIA VERA (PISTACHIO)] Allergy (Intermediate, Verified 09/08/23 12:41) RASH avocado [Avocado] Allergy (Unknown, Verified 09/08/23 12:41) UNKNOWN banana [Banana] Allergy (Unknown, Verified 09/08/23 12:41) UNKNOWN prednisone Adverse Reaction (Severe, Verified 09/08/23 12:41) Unknown Environmental Allergy (Mild, Uncoded 09/08/23 12:41) RUNNY NOSE Medication List - Last Reconciled 12/09/23 by Jasen Chen MD acetaminophen ER (Tylenol 8 Hour) 1,300 mg (2 x 650 mg) PO Q12H apixaban 5 mg PO BID blood-glucose meter ([employer] Verio Flex Start kit) As directed blood-glucose meter,continuous (Dexcom G7 Glass Crusher) As directed blood-glucose sensor (Dexcom G7 Sensor device) As directed cyclobenzaprine 10 mg PO TID PRN flecainide 100 mg PO Q12H furosemide 20 mg PO 3XW lisinopril 10 mg PO DAILY metformin 1,000 mg PO DAILY metoprolol succinate ER 12.5 mg (1/2 x 25 mg) PO DAILY omeprazole 40 mg PO DAILY oxycodone 5 mg PO Q6H PRN rosuvastatin 40 mg PO DAILY triamterene-hydrochlorothiazid 37.5-25 mg 1 tab PO DAILY HPI Comments Details: Tyler comes for follow-up. He has been doing very well from cardiac perspective. Denies any clear cardiac symptoms. No prolonged palpitation irregular heartbeat. Taking all his medications. Denies any heart failure symptoms of orthopnea PND. Has leg edema especially in his heart weather. He said he works outside a lot. Denies any exertional chest pain. No lightheadedness, syncope. No bleeding issues or neurologic events. [facility] Medical History (Updated 08/25/23 @ 11:20 by Bev Almonte RN) CVA (cerebral vascular accident) Hyperlipidemia GERD (gastroesophageal reflux disease) Diabetes Mass of left elbow Nocturnal hypoxemia INGA (obstructive sleep apnea) Varicose veins of both lower extremities Obesity HTN (hypertension) Paroxysmal atrial fibrillation Surgical History Hx of colonoscopy History of hand surgery Hx of endoscopy Family History Father No problems noted. Mother No problems noted. 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 Current occupational exposures/hazards: No Cognitive needs: No Hearing needs: No Vision needs: Yes Review of Systems Const Denies chills, Denies fatigue, Denies fever(s), Denies frequent falls, Denies weakness, Denies weight gain and Denies weight loss ENT Denies dizziness Card Denies chest pain, Denies leg edema, Denies lightheadedness, Denies palpitations, Denies dyspnea, Denies dyspnea on exertion, Denies orthopnea and Denies other (loss of consciousness) Resp Denies cough, Denies dyspnea and Denies dyspnea on exertion GI Denies hematochezia and Denies change in stool character Musc Denies abnormal gait, Denies muscle weakness, Denies numbness, Denies radiating pain into limb and Denies tingling Neuro Denies abnormal gait, Denies dizziness, Denies frequent falls, Denies numbness, Denies tingling and Denies weakness Endo Denies fatigue and Denies palpitations Physical Exam Vital Signs: Last Vital Signs Pulse 61 12/09/23 15:04 BP 118/72 12/09/23 15:04 BMI result Body Mass Index 36.1 Const General: cooperative, comfortable, no acute distress, alert and awake Nutritional Appearance: obese Orientation/consciousness: patient oriented x3 Limitations: no limitations Neck Neck: Yes trachea midline, Yes supple and Yes no JVD Resp Effort & Inspection: normal respiratory effort Auscultation: clear to auscultation bilaterally Cardio Jugular venous distension: no JVD Palpation: normal PMI Rate: regular rate Rhythm: regular rhythm Heart sounds: S1 normal heart sound present and S2 normal heart sound present GI Auscultation: normal bowel sounds Skin General skin exam: no rashes or lesions noted Neuro General: patient oriented x3 and no focal motor deficits Extrem General: No clubbing, No cyanosis and Yes edema (below knee 1-2+) Psych Appearance: grossly normal Office Procedures EKG Details: EKG shows normal sinus rhythm with low-amplitude P waves suggestive atrial myopathy with LVH with left axis deviation [id number], Complete Assessment & Plan Assessment & Plan (1) Paroxysmal atrial fibrillation: Comment: follows w/HCS Code(s): I48.0 - Paroxysmal atrial fibrillation Category: Medical Plan: Highly symptomatic paroxysmal atrial fibrillation in this elderly gentleman without any recurrence on flecainide therapy. Has done very well with flecainide therapy. Continue the same. Will require semi annual EKG in semi annual blood work. Continue aggressive risk factor modification including continue treatment of sleep apnea as well as continue aggressive blood pressure control. Continue concomitant metoprolol therapy. Do full oral anticoagulation, currently on Eliquis 5 mg b.i.d.. Semi annual renal function test should be pursued. Continue participate in regular physical activity. Avoidance of stimulants was discussed. (2) HTN (hypertension): Code(s): I10 - Essential (primary) hypertension Category: Medical Plan: High blood pressure which is currently well optimized advised to monitor blood pressure at home maintain a log. Continue CPAP therapy. Continue current regimen. Continue aggressive risk factor modification. Goal hemoglobin A1c less than 7% being pursue through your office. Continue statin therapy with target goal LDL less than 70 mg/dL. (3) Thoracic aortic aneurysm: Code(s): I71.20 - Thoracic aortic aneurysm, without rupture, unspecified Category: Medical Plan: Thoracic aortic aneurysm which is mild. Follow-up echocardiogram in near future. Continue aggressive risk factor modification. Advised to avoid sudden strenuous isometric exercise. No interventions required at this time besides medical therapy. Will follow up in the clinic in 1 year's time with me. EKG in 6 months. Orders: Orders CA echo transthoracic complete 1 Month I71.20 - Thoracic aortic aneurysm, without rupture, unspecified Coding Level of Care Code Est Pt Level 4 (20787) Diagnoses Paroxysmal atrial fibrillation I48.0 HTN (hypertension) I10 Thoracic aortic aneurysm I71.20 CPT Codes EKG - CPT: 22810-[id number], Complete ([id number])
[2023-12-09 15:04] VITALS: BP 118/72; PULSE 61; BMI 36.1
== END 2023-12-09 15:27 | disposition home or self-care (01) ==
PROVIDERS: PCP Internal Medicine; Visit Provider Internal Medicine Cardiovascular Disease
DX: I48.0 Paroxysmal atrial fibrillation (principal); I10 Essential (primary) hypertension; I71.20 Thoracic aortic aneurysm, without rupture, unspecified
CPT/HCPCS: 93010; 99214

== ENCOUNTER → 2023-12-09 14:45 | Outpatient (BNVA) | payer MEDICARE, SELFPAY | PROVIDERS: PCP Internal Medicine; Visit Provider Internal Medicine Cardiovascular Disease | DX: I48.0 Paroxysmal atrial fibrillation (principal); I10 Essential (primary) hypertension; I71.20 Thoracic aortic aneurysm, without rupture, unspecified; Z79.01 Long term (current) use of anticoagulants; Z79.899 Other long term (current) drug therapy | CPT/HCPCS: 93005; 99212 ==

== ENCOUNTER 2023-12-10 08:57 | Outpatient (AMB) | payer MEDICARE, SELFPAY ==
[2023-12-10 09:05] VITALS: BP 150/82; PULSE 55; O2SAT 97; BMI 36.3
--- NOTE | 2023-12-10 09:05 | A.OFFPC_ITS ---
Vital Signs 12/10/23 09:05 Height 5 ft 9 in Weight 246 lb BMI 36.3 BP 150/82 H Blood Pressure Location Lt brachial Position Sitting Pulse 55 Pulse Source Pulse Oximeter Pulse Oximetry (%) 97 Oxygen Delivery Method Room Air Intake Visit Reasons: 3mth f/u Intake Note: pt is here for a follow up, states having pain on his right side and leg swelling Ancillary Services Manager Therapy: Not Required per policy Accompanied by: Self / Same As Patient Allergies kiwi [KIWI] Allergy (Intermediate, Verified 12/10/23 09:05) RASH latex [Latex] Allergy (Intermediate, Verified 12/10/23 09:05) RASH Pistacia Vera (Pistachio) [PISTACIA VERA (PISTACHIO)] Allergy (Intermediate, Verified 12/10/23 09:05) RASH avocado [Avocado] Allergy (Unknown, Verified 12/10/23 09:05) UNKNOWN banana [Banana] Allergy (Unknown, Verified 12/10/23 09:05) UNKNOWN prednisone Adverse Reaction (Severe, Verified 12/10/23 09:05) Unknown Environmental Allergy (Mild, Uncoded 12/10/23 09:05) RUNNY NOSE Medication List - Last Reconciled 12/10/23 by Elio Drew MD acetaminophen ER (Tylenol 8 Hour) 1,300 mg (2 x 650 mg) PO Q12H apixaban 5 mg PO BID blood-glucose meter ([employer] Verio Flex Start kit) As directed blood-glucose meter,continuous (Dexcom G7 Environmental Planning Engineer) As directed blood-glucose sensor (Dexcom G7 Sensor device) As directed cyclobenzaprine 10 mg PO TID PRN flecainide 100 mg PO Q12H furosemide 20 mg PO 3XW lisinopril 10 mg PO DAILY metformin 1,000 mg PO DAILY metoprolol succinate ER 12.5 mg (1/2 x 25 mg) PO DAILY omeprazole 40 mg PO DAILY oxycodone 5 mg PO Q6H PRN rosuvastatin 40 mg PO DAILY triamterene-hydrochlorothiazid 37.5-25 mg 1 tab PO DAILY Tobacco use date assessed: 07/25/23 Fall risk assessment: No Falls in past year Last assessed Fall Risk: 12/10/23 Dental Screening Dental Screen Date: 07/25/23 HPI 3mth f/u HPI Details Diabetes hypertension and hyperlipidemia; doing well; compliant [facility] Medical History (Updated 08/25/23 @ 11:20 by Bev Almonte RN) CVA (cerebral vascular accident) Hyperlipidemia GERD (gastroesophageal reflux disease) Diabetes Mass of left elbow Nocturnal hypoxemia INGA (obstructive sleep apnea) Varicose veins of both lower extremities Obesity HTN (hypertension) Paroxysmal atrial fibrillation Surgical History Hx of colonoscopy History of hand surgery Hx of endoscopy Family History Father No problems noted. Mother No problems noted. 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 Roddy Martinez, Lizbet Shell, Justin Tai and colleagues, with an educational raghavendra from [employer]. Review of Systems Const Denies chills, Denies headache(s) and Denies weight loss ENT Denies headache(s) Card Denies chest pain, Denies syncope, Denies irregular heart rhythm and Denies dyspnea Resp Denies chest congestion, Denies cough and Denies dyspnea GI Denies abdominal pain, Denies change in stool character, Denies nausea and Denies vomiting Musc Denies deformity and Denies joint swelling Neuro Denies syncope and Denies headache(s) Physical exam (Primary Care) Vital Signs: Last Vital Signs Pulse 55 12/10/23 09:05 BP 150/82 H 12/10/23 09:05 Pulse Ox 97 12/10/23 09:05 Oxygen Delivery Method Room Air 12/10/23 09:05 BMI result Body Mass Index 36.3 Tobacco/Smoking Status: Tobacco use Status Tobacco use date assessed 07/25/23 12/10/23 09:05 Patient Tobacco Use Status Never used Tobacco 12/10/23 09:05 e-Cigarette/Vaping Use Never Used 12/10/23 09:05 Thrive Assessment: Date of Thrive Assessment Date Thrive assessed 09/08/23 12/10/23 09:05 Const General: cooperative, comfortable, no acute distress and alert Neck Neck: Yes no lymphadenopathy Thyroid: Thyroid normal Resp Effort & Inspection: normal respiratory effort Auscultation: clear to auscultation bilaterally Percussion: percussion normal Cardio Jugular venous distension: no JVD Palpation: normal PMI Rate: regular rate Rhythm: regular rhythm Heart sounds: S1 normal heart sound present and S2 normal heart sound present GI Inspection: Yes normal to inspection Palpation (GI): No hepatosplenomegaly present Skin General skin exam: no rashes or lesions noted Extrem General: Yes no clubbing, cyanosis or edema Assessment and Plan Assessment & Plan (1) Hyperlipidemia: Code(s): E78.5 - Hyperlipidemia, unspecified Plan: stable; same rx (2) Diabetes mellitus with coincident hypertension: Code(s): E11.9 - Type 2 diabetes mellitus without complications; I10 - Essential (primary) hypertension Plan: stable; same rx (3) HTN (hypertension): Code(s): I10 - Essential (primary) hypertension Plan: stable; same rx Orders: Orders Hemoglobin A1c Today R73.9 - Hyperglycemia, unspecified Lipid Panel Today Z13.220 - Encounter for screening for lipoid disorders Glucose Fasting Today R73.9 - Hyperglycemia, unspecified Coding Level of Care Code Est Pt Level 4 (60584) Diagnoses Hyperlipidemia E78.5 Diabetes mellitus with coincident hypertension E11.9; I10 HTN (hypertension) I10
== END 2023-12-10 09:33 | disposition home or self-care (01) ==
PROVIDERS: PCP Internal Medicine; Visit Provider Internal Medicine
DX: E78.5 Hyperlipidemia, unspecified (principal); E11.9 Type 2 diabetes mellitus without complications; I10 Essential (primary) hypertension
CPT/HCPCS: 99214

== ENCOUNTER 2024-03-12 09:31 | Outpatient (AMB) | payer MEDICARE, SELFPAY ==
[2024-03-12 09:35] VITALS: BP 152/72; PULSE 55; O2SAT 94; BMI 36.0
--- NOTE | 2024-03-12 09:35 | A.OFFPC_ITS ---
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 Required: No Accompanied by: Self / Same As Patient Allergies kiwi [KIWI] Allergy (Intermediate, Verified 03/12/24 09:39) RASH latex [Latex] Allergy (Intermediate, Verified 03/12/24 09:39) RASH Pistacia Vera (Pistachio) [PISTACIA VERA (PISTACHIO)] Allergy (Intermediate, Verified 03/12/24 09:39) RASH avocado [Avocado] Allergy (Unknown, Verified 03/12/24 09:39) UNKNOWN banana [Banana] Allergy (Unknown, Verified 03/12/24 09:39) UNKNOWN prednisone Adverse Reaction (Severe, Verified 03/12/24 09:39) Unknown Environmental Allergy (Mild, Uncoded 03/12/24 09:39) RUNNY NOSE Medication List - Last Reconciled 03/15/24 by Elio Drew MD acetaminophen ER (Tylenol 8 Hour) 1,300 mg (2 x 650 mg) PO Q12H apixaban 5 mg PO BID blood-glucose meter ([employer] Verio Flex Start kit) As directed blood-glucose meter,continuous (Dexcom G7 Corporate Law Specialist) As directed blood-glucose sensor (Dexcom G7 Sensor device) As directed cyclobenzaprine 10 mg PO TID PRN flecainide 100 mg PO Q12H furosemide 20 mg PO 3XW lisinopril 10 mg PO DAILY metformin 1,000 mg PO DAILY metoprolol succinate ER 12.5 mg (1/2 x 25 mg) PO DAILY omeprazole 40 mg PO DAILY oxycodone 5 mg PO Q6H PRN rosuvastatin 40 mg PO DAILY triamterene-hydrochlorothiazid 37.5-25 mg 1 tab PO DAILY Tobacco use date assessed: 07/25/23 Fall risk assessment: No Falls in past year Last assessed Fall Risk: 03/12/24 Dental Screening Dental Screen Date: 07/25/23 [facility] Medical History (Updated 03/15/24 @ 08:33 by Elio Drew MD) CVA (cerebral vascular accident) Hyperlipidemia GERD (gastroesophageal reflux disease) Diabetes Mass of left elbow Nocturnal hypoxemia INGA (obstructive sleep apnea) Varicose veins of both lower extremities Obesity HTN (hypertension) Paroxysmal atrial fibrillation Surgical History Hx of colonoscopy History of hand surgery Hx of endoscopy Family History Father No problems noted. Mother No problems noted. 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 Roddy Martinez, Lizbet Shell, Justin Tai and colleagues, with an educational raghavendra from [employer] Physical exam (Primary Care) Vital Signs: Last Vital Signs Pulse 55 03/12/24 09:35 BP 152/72 H 03/12/24 09:35 Pulse Ox 94 03/12/24 09:35 Oxygen Delivery Method Room Air 03/12/24 09:35 BMI result Body Mass Index 36.0 Tobacco/Smoking Status: Tobacco use Status Tobacco use date assessed 07/25/23 03/12/24 09:41 Patient Tobacco Use Status Never used Tobacco 03/12/24 09:41 e-Cigarette/Vaping Use Never Used 03/12/24 09:41 Thrive Assessment: Date of Thrive Assessment Date Thrive assessed 09/08/23 03/12/24 11:03 Results AMB Hemoglobin A1c AMB Hemoglobin A1c 6.5 % Last Edit by Annamarie Garrison CMA on 03/12/24 09:47 Results Reviewed Results Reviewed: Laboratory Last Values Hgb A1c (Clinic) 6.5 % (4.0-6.0) H 03/12/24 09:46 Coding Level of Care Code Est Pt Level 3 (74620) Diagnoses Diabetes mellitus with coincident hypertension E11.9; I10 Assessment & Plan Assessment & Plan (1) Diabetes mellitus with coincident hypertension: Code(s): E11.9 - Type 2 diabetes mellitus without complications; I10 - Essential (primary) hypertension Category: Medical Plan: stable; same rx Orders: Orders AMB Hemoglobin A1c 03/12/24 E11.9 - Type 2 diabetes mellitus without complications, I10 - Essential (primary) hypertension
--- NOTE | 2024-03-12 11:00 | MHC.COMNAV ---
Intake Vital Signs 03/12/24 09:35 Height 5 ft 9 in Weight 244 lb BMI 36.0 BP 152/72 H Blood Pressure Location Lt brachial Position Sitting Pulse 55 Pulse Source Pulse Oximeter Pulse Oximetry (%) 94 Oxygen Delivery Method Room Air Intake Visit Reasons: 3mth f/u Allergies kiwi [KIWI] Allergy (Intermediate, Verified 03/12/24 09:39) RASH latex [Latex] Allergy (Intermediate, Verified 03/12/24 09:39) RASH Pistacia Vera (Pistachio) [PISTACIA VERA (PISTACHIO)] Allergy (Intermediate, Verified 03/12/24 09:39) RASH avocado [Avocado] Allergy (Unknown, Verified 03/12/24 09:39) UNKNOWN banana [Banana] Allergy (Unknown, Verified 03/12/24 09:39) UNKNOWN prednisone Adverse Reaction (Severe, Verified 03/12/24 09:39) Unknown Environmental Allergy (Mild, Uncoded 03/12/24 09:39) RUNNY NOSE Medication List - Last Reconciled 03/15/24 by Elio Drew MD acetaminophen ER (Tylenol 8 Hour) 1,300 mg (2 x 650 mg) PO Q12H apixaban 5 mg PO BID blood-glucose meter ([employer] Verio Flex Start kit) As directed blood-glucose meter,continuous (Dexcom G7 Member Services Representative) As directed blood-glucose sensor (Dexcom G7 Sensor device) As directed cyclobenzaprine 10 mg PO TID PRN flecainide 100 mg PO Q12H furosemide 20 mg PO 3XW lisinopril 10 mg PO DAILY metformin 1,000 mg PO DAILY metoprolol succinate ER 12.5 mg (1/2 x 25 mg) PO DAILY omeprazole 40 mg PO DAILY oxycodone 5 mg PO Q6H PRN rosuvastatin 40 mg PO DAILY triamterene-hydrochlorothiazid 37.5-25 mg 1 tab PO DAILY PFSH Medical History (Updated 03/15/24 @ 08:33 by Elio Drew MD) CVA (cerebral vascular accident) Hyperlipidemia GERD (gastroesophageal reflux disease) Diabetes Mass of left elbow Nocturnal hypoxemia INGA (obstructive sleep apnea) Varicose veins of both lower extremities Obesity HTN (hypertension) Paroxysmal atrial fibrillation Surgical History Hx of colonoscopy History of hand surgery Hx of endoscopy Family History Father No problems noted. Mother No problems noted. 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 Member Services Representative taken out of box and set up with patient going over the high and low limits and setting the alarms. Sensor taken out of box and arm was cleansed with alcohol and sensor was placed on patients left arm. Sensor was then paired with drum sander setter, patient was given informational packet that explains how to apply new sensors, verbalized an understanding of the information. Patient response teach back Questionnaires Thrive Questionnaire Date Thrive assessed: 09/08/23 Results AMB Hemoglobin A1c AMB Hemoglobin A1c 6.5 % Last Edit by Annamarie Garrison CMA on 03/12/24 09:47 Coding Level of Care Code Est Pt Level 3 (67442) Diagnoses HTN (hypertension) I10 Assessment & Plan Assessment & Plan (1) HTN (hypertension): Comment: healthy and compliant; feels well; PE and ROS normal Code(s): I10 - Essential (primary) hypertension Category: Medical Plan: cont same rx Orders: Orders AMB Hemoglobin A1c 03/12/24 E11.9 - Type 2 diabetes mellitus without complications, I10 - Essential (primary) hypertension
== END 2024-03-12 09:56 | disposition home or self-care (01) ==
PROVIDERS: PCP Internal Medicine; Visit Provider Internal Medicine
DX: I10 Essential (primary) hypertension (principal)

== ENCOUNTER → 2024-03-12 09:31 | Outpatient (BNVA) | payer MEDICARE, SELFPAY | PROVIDERS: PCP Internal Medicine; Visit Provider Internal Medicine | DX: I10 Essential (primary) hypertension (principal); E11.9 Type 2 diabetes mellitus without complications | CPT/HCPCS: 83036; 99212 ==

== ENCOUNTER 2024-06-09 07:15 | Outpatient (REF) | payer MEDICARE, SELFPAY ==
[2024-06-09 08:06] LABS: Estimated Average Glucose 148 mg/dL; Hemoglobin A1C 119.6514 umol/L; Hemoglobin A1c % 6.8 % (<6.0); Total Hemoglobin (HGBA1C) 2337.1167 umol/L
[2024-06-09 08:15] LABS: Cholesterol 146 mg/dL (<200); Glucose Fasting 144 mg/dL (60-99); HDL Cholesterol 48 mg/dL (>40); LDL Cholesterol Calculated 67 mg/dL (<100); Triglycerides 157 mg/dL (<150)
== END 2024-06-09 07:16 | disposition home or self-care (01) ==
LOC: HO.LAB 07:15
PROVIDERS: PCP Internal Medicine; Visit Provider Internal Medicine
DX: R73.9 Hyperglycemia, unspecified (principal); Z13.220 Encounter for screening for lipoid disorders
CPT/HCPCS: 36415; 80061; 82947; 83036

== ENCOUNTER 2024-06-22 11:06 | Emergency (ER) | payer OTHER, SELFPAY ==
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
[2024-06-22 12:50] VITALS: BP 141/75; PULSE 60; RESP 16; TEMP 36.8; O2SAT 97; BMI 36.9
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
[2024-06-22 14:55] LABS: MANUAL DIFF FLAG NO
[2024-06-22 14:57] LABS: Basophils Percent Auto 0.3 % (0-2); Eosinophils Percent Auto 0.3 % (0-4); Hematocrit 28.8 % (42.0-52.0); Hemoglobin 8.9 g/dl (14.0-18.0); Imm Gran Abs Auto 0.03 X10*3/uL (0.00-0.03); Imm Gran Pct Auto 0.4 % (0.0-0.4); Lymphocytes Absolute Auto 1.1 X10*3/uL (1.2-4.9); Lymphocytes Percent Auto 15.7 % (20-40); Mean Corpuscular HGB Conc 30.9 g/dl (31.0-36.0); Mean Corpuscular Hemoglobin 23.2 pg (27.0-33.0); Mean Corpuscular Volume 75.2 fL (80.0-98.0); Mean Platelet Volume 9.6 fL (9.4-12.4); Monocytes Absolute Auto 0.4 X10*3/uL (0.1-1.2); Monocytes Percent Auto 6.3 % (2-11); Neutrophils Absolute Auto 5.4 x10*3/uL (2.0-8.3); Platelet Count 167 X10*3/uL (160-400); Red Blood Count 3.83 X10*6/uL (4.60-5.80); Red Cell Distribution Width 14.4 % (11.0-16.0)
[2024-06-22 15:02] LABS: INTERNATIONAL NORM RATIO 1.2 (0.9-1.1); Prothrombin Time 14.4 SEC (10.9-12.4)
[2024-06-22 15:12] LABS: Alanine Aminotransferase 15 U/L (0-40); Albumin Level 4.2 g/dL (3.5-5.0); Alkaline Phosphatase 60 U/L (39-117); Anion Gap 17 (12-20); Aspartate Amino Transferase 19 U/L (5-37); Bilirubin Total 0.3 mg/dL (0.0-1.0); Blood Urea Nitrogen 20 mg/dL (9-16); Calcium 9.1 mg/dL (8.4-10.2); Carbon Dioxide 25 mmol/L (22-29); Chloride 104 mmol/L (96-108); Creatinine Clr Calc Pharmacy 88.4; Estimated Glomerular Filt Rate > 60; Glucose Random 99 mg/dL (60-115); Potassium 4.4 mmol/L (3.3-5.1); Sodium 142 mmol/L (135-145); Total Protein 7.5 g/dL (6.5-8.0)
[2024-06-22 15:24] VITALS: BP 160/76; PULSE 59; RESP 16; TEMP 36.6; O2SAT 97
[2024-06-22 15:47] VITALS: BP 160/76; PULSE 59; RESP 16; TEMP 36.6; O2SAT 97
== END 2024-06-22 15:48 | disposition home or self-care (01) ==
PROVIDERS: Physician Assistant Medical; Emergency Provider Emergency Medicine; PCP Internal Medicine
DX: S70.12XA Contusion of left thigh, initial encounter (principal); N28.1 Cyst of kidney, acquired; R10.2 Pelvic and perineal pain; R51.9 Headache, unspecified; M25.512 Pain in left shoulder; R07.89 Other chest pain; M54.2 Cervicalgia; I48.91 Unspecified atrial fibrillation; V43.52XA Car driver injured in collision with other type car in traffic accident, initial encounter; Y93.9 Activity, unspecified; Y92.410 Unspecified street and highway as the place of occurrence of the external cause; Y99.8 Other external cause status; Z79.01 Long term (current) use of anticoagulants; Z79.899 Other long term (current) drug therapy
CPT/HCPCS: 36415; 70450; 71260; 72125; 73000; 73030; 73701; 74177; 80053; 85025; 85610; 85730; 99283; 99284

== ENCOUNTER → 2024-06-22 12:58 | Outpatient (BNV) | payer OTHER, SELFPAY | PROVIDERS: Emergency Provider Emergency Medicine; PCP Internal Medicine; Visit Provider Radiology Diagnostic Radiology | DX: S39.91XA Unspecified injury of abdomen, initial encounter (principal); S09.90XA Unspecified injury of head, initial encounter; S19.9XXA Unspecified injury of neck, initial encounter; S72.92XA Unspecified fracture of left femur, initial encounter for closed fracture; S40.912A Unspecified superficial injury of left shoulder, initial encounter | CPT/HCPCS: 70450; 71260; 72125; 73000; 73030; 73701; 74177 ==

== ENCOUNTER 2024-07-02 09:40 | Outpatient (AMB) | payer MEDICARE, SELFPAY ==
--- OUTSIDE RECORDS SUMMARY | 2024-07-02 10:08 | XMS_ITS ---
Author Organization [facility] Address [address] [place] [address] Care Team Providers Care Shearing Machine Operator Name Role Phone Viki ALCALA, Elio Primary Care Provider Sean Poe Jr Unavailable [phone] ALLERGIES Allergen (clinical drug ingredient) Drug/Non Drug Allergy documented on EMR Reaction Allergy Type Onset Date Status banana allergenic extract Banana (Diagnostic) Unknown Drug Allergy Active avocado allergenic extract avacado (uncoded) Unknown Allergy Active some fruits (uncoded) Unknown Allergy Active enviromental (uncoded) Unknown Allergy Active Latex Latex (uncoded) Unknown Allergy Acti ve Kiwi Unknown Allergy Active pistachio nut allergenic extract Pistachio Nut (Diagnostic) Unknown Drug Allergy Active REASON FOR VISIT Patient presents today for gerd MEDICATIONS Medication SIG (Take, Route, Frequency, Duration) Notes Start Date End Date Status MiraLax (colon prep) 17 GM/SCOOP mixed with Gatorade or Crystal Light Orally begin at 5:00 p.m. the day before the procedure for 1 day 03/06/2023 Active Metoprolol Succinate ER 25 MG Oral for 30 Active Furosemide 20 MG Oral for 28 A ctive metFORMIN HCl 1000 MG Oral for 30 Active Eliquis 5 MG as directed Orally once a day Active Omeprazole 40 MG TAKE 1 CAPSULE BY MOUTH EVERY DAY for 30 days Patient needs to call office and schedule an appointment Active Rosuvastatin Calcium 40 MG 1 tablet Orally Once a day for 30 day(s) Active Lisinopril 10 MG 1 tablet Orally Once a day for 30 day(s) Active Multivitamin - 1 tablet Orally Once a day for 30 day(s) Active PROBLEMS Problem Type ICD Code Onset Dates Problem Status W/U Status Risk SNOMED Code Notes Problem Colon cancer screening (Z12.11) Active confirmed 019705288 Problem Gastroesophageal reflux disease without esophagitis (K21.9) Active confirmed 265491836 VITAL SIGNS BMI 36.56 kg/m2 03/06/2023 Blood pressure systolic 00 mm Hg 03/06/20 23 Blood pressure diastolic 00 mm Hg 023 Height 68.5 in 03/06/2023 Temperature 97.5 degrees Fahrenheit 03/06/20 23 Weight 244 lbs 03/06/2023 Encounters Encounter Location Date Provider Diagnosis [facility] [address] [place] [address] 03/06/2023 Sean Villatoro Jr Colon cancer screening Z12.11 and Gastroesophageal reflux disease without esophagitis K21.9 ASSESSMENTS Encounter Date Diagnosis Assessment Notes Treatment Notes Treatment Clinical Notes 03/06/2023 Colon cancer screeni ng (ICD-10 - Z12.11) Colon cancer screening material was printed 03/06/2023 Gastroesophageal ref lux disease without esophagitis (ICD-10 - K21.9) PLAN OF TREATMENT Medication Medication Name Sig Start Date Stop Date Notes MiraLax (colon prep) 17 GM/SCOOP mixed with Gatorade or Crystal Light Orally begin at 5:00 p.m. the day before the procedure for 1 day 03/06/2023 Treatment Notes Assessment Notes Colon cancer screening Colon cancer scre ening material was printed Future Test Test Name Order Date COLONOSCOPY 03/06/2023 Next Appt Details Follow Up: 1 Year, Reason: Progress Notes * Examination Category Sub-Category Detail Notes General Examination GENERAL APPEARANCE: in no ac [place] distress HEAD: normocephalic EYES: sclera non-icteric NECK/THYROID: no lymphadenopathy HEART: S1, S2 normal, no mu rmurs CHEST: normal shape and exp ansion LUNGS: clear to auscultatio n bilaterally ABDOMEN: soft, nontender, non distended, bowel sounds present, no organomegaly SKIN: anicteric EXTREMITIES: no clubbing, cyanosi s, or edema PSYCH: cognitive function i ntact ORAL CAVITY: mucosa moist
--- OUTSIDE RECORDS SUMMARY | 2024-07-02 10:09 | XMS_ITS ---
Author Organization [facility] Address [address] [place] [address] Care Team Providers Care Asphalt Roller Operator Name Role Phone Viki ALCALA, Elio Primary Care Provider UnavailSean Jamil Jr [phone] REASON FOR VISIT insurance? Encounters Encounter Location Date Provider Diagnosis [facility] [address] [place] [address] 07/24/2023 Sean Villatoro Jr PLAN OF TREATMENT No Information
--- OUTSIDE RECORDS SUMMARY | 2024-07-02 10:09 | XMS_ITS ---
Author Organization [facility] Address [address] [place] [address] Care Team Providers Care Copier Field Service Technician Name Role Phone Viki ALCALA, Elio Primary Care Provider Sean Poe Jr [phone] REASON FOR VISIT screening Encounters Encounter Location Date Provider Diagnosis [facility] [address] [place] [id number] 08/26/2023 Sean Villatoro Jr Encounter for screening colonoscopy Z12.11 and Personal history of colonic polyps Z86.010 ASSESSMENTS Encounter Date Diagnosis Assessment Notes Treatment Notes Treatment Clinical Notes 08/26/2023 Encounter for screening colonoscopy (ICD-10 - Z12.11) 08/26/2023 Personal history of colonic polyps (ICD-10 - Z86.010) PLAN OF TREATMENT No Information
--- OUTSIDE RECORDS SUMMARY | 2024-07-02 10:09 | XMS_ITS | Patient Health Record ---
Author Organization [facility] Address [address] [place] [address] Care Team Providers Care Case Resource Manager Name Role Phone Viki ALCALA, Elio Primary Care Provider Sean Poe Jr Unavailable [phone] ALLERGIES Allergen (clinical drug ingredient) Drug/Non Drug Allergy documented on EMR Reaction Allergy Type Onset Date Status Banana (Diagnostic) Unknown Drug Allergy Active avacado (uncoded) Unknown Allergy Ac tive some fruits (uncoded) Unknown Allergy Active enviromental (uncoded) Unknown Allergy Active Latex Latex (uncoded) Unknown Allergy Acti ve Kiwi Unknown Allergy Active Pistachio Nut (Diagnostic) Unknown Drug Allergy Active RESULTS Component Value Reference Range Notes Glucose, Whole Blood Reviewed date:08/28/2023 09:26:50 AM Interpretation: Performing Lab:[facility], [address] [place] [id number] Notes/Report: Glucose, Whole Blood 131 60-115 mg/dL METER # : [id number] REASON FOR REFERRAL No Information MEDICATIONS Medication SIG (Take, Route, Frequency, Duration) Notes Start Date End Date Status Eliquis 5 MG as directed Orally o nce a day Active MiraLax (colon prep) 17 GM/SCOOP mixed with Gatorade or Crystal Light Orally begin at 5:00 p.m. the day before the procedure for 1 day 03/06/2023 Active Rosuvastatin Calcium 40 MG 1 tablet Oral ly Once a day for 30 day(s) Active Lisinopril 10 MG 1 tablet Orally Once a day for 30 day(s) Active Multivitamin - 1 tablet Orally Once a day for 30 day(s) Active Metoprolol Succinate ER 25 MG Oral for 30 Active Omeprazole 40 MG TAKE 1 CAPSULE BY [facility] EVERY DAY FOR 90 DAYS for 90 Active Furosemide 20 MG Oral for 28 A ctive metFORMIN HCl 1000 MG Oral for 30 Active IMMUNIZATIONS Vaccine Route Administration Date Status Comme nts Influenza Unknown 02/25/2018 Administered SOCIAL HISTORY Sex Assigned At : Social History Observation Description Sex Assigned At Unknown PROBLEMS Problem Type ICD Code Onset Dates Problem Status W/U Status Risk SNOMED Code Notes Problem Personal history of colonic polyps (Z86.010) Active confirmed 993118512 Problem Abdominal pain, generalized (R10.84) Active confirmed 467188662 Problem Weight loss (R63.4) Active confirmed 89 906436 Problem Loss of weight (R63.4) Active confirmed 84223138 Problem Elevated LFTs (R94.5) Active confirmed 562567079 Problem Colon cancer screening (Z12.11) Active confirmed 202872138 Problem Gastroesophageal reflux disease without esophagitis (K21.9) Active confirmed 574353484 Encounters Encounter Location Date Provider Diagnosis [facility] [place] Out[facility] [address] [place] [id number] 08/26/2023 Sean Villatoro Jr Encounter for screening colonoscopy Z12.11 and Personal history of colonic polyps Z86.010 [facility] [address] [place] [address] 07/24/2023 Sean Villatoro Jr ASSESSMENTS Encounter Date Diagnosis Assessment Notes Treatment Notes Treatment Clinical Notes 08/26/2023 Encounter for screening colonoscopy (ICD-10 - Z12.11) 08/26/2023 Personal history of colonic polyps (ICD-10 - Z86.010) PLAN OF TREATMENT Future Test Test Name Order Date COLONOSCOPY 08/04/2013 UPPER GI ENDOSCOPY 07/29/2018 COLONOSCOPY 07/29/2018 COLONOSCOPY 03/06/2023 Insurance Providers Payer Name Payer Address Payer Phone Subscriber Number Group Number Insured Name Patient Relationship to Insured Coverage Start Date Coverage End Date [facility] [address] [address] [place] [address] [phone] [id number] FANNY TINEO Self - patient is the insured MEDICAL (GENERAL) HISTORY Medical History History ICD Code Gastroesophageal reflux disease, EGD/, no HP or BE Colonoscopy 09/04, negative f or polyps, five-year followup for history of polyps Hyperlipidemia Atrial fibrillation Hypertension Diabetes mellitus type 2 Remote history of CVA Elevated BMI Surgical History Surgery Date(Month/Year) finger surgery
[2024-07-02 10:15] VITALS: BP 132/78; PULSE 58; TEMP 36.3; O2SAT 96; BMI 36.7
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
== END 2024-07-02 10:29 | disposition home or self-care (01) ==
PROVIDERS: PCP Internal Medicine; Visit Provider Nurse Practitioner Family
DX: N28.1 Cyst of kidney, acquired (principal); S70.12XA Contusion of left thigh, initial encounter; M62.830 Muscle spasm of back; V89.2XXA Person injured in unspecified motor-vehicle accident, traffic, initial encounter

== ENCOUNTER → 2024-07-02 09:40 | Outpatient (BNVA) | payer MEDICARE, SELFPAY | PROVIDERS: PCP Internal Medicine; Visit Provider Nurse Practitioner Family | DX: N28.1 Cyst of kidney, acquired (principal); M62.830 Muscle spasm of back; S70.12XD Contusion of left thigh, subsequent encounter; V89.2XXD Person injured in unspecified motor-vehicle accident, traffic, subsequent encounter | CPT/HCPCS: 99212 ==

== ENCOUNTER 2024-08-17 07:45 | Outpatient (AMB) | payer MEDICARE, SELFPAY ==
--- OUTSIDE RECORDS SUMMARY | 2024-08-17 07:48 | XMS_ITS ---
Author Organization [facility] Address [address] [place] [address] Care Team Providers Care Health Commissioner Name Role Phone Elio Drew MD Primary Care Provider Sean Poe Jr [phone] REASON FOR VISIT insurance? Encounters Encounter Location Date Provider Diagnosis [facility] [address] [place] [address] 07/24/2023 Sean Villatoro Jr Plan Of Treatment No Information Progress Notes * FANNY TINEO CDOB: [birth year] (63 yo M)Acc No.[id number]:07/24/2023 Patient:?FANNY TINEO :1960???Age:63 Y???Sex:Male Address:[place] [address] * true * Date:? Generated for Bradi amber/Stephen/eTransmitting on:?08/17/2024 07:48 AM EDT
--- OUTSIDE RECORDS SUMMARY | 2024-08-17 07:48 | XMS_ITS ---
Author Organization [facility] Address [address] [place] [address] Care Team Providers Care Telegraph Service Rater Name Role Phone Viki ALCALA, Elio Primary Care Provider Sean Poe Jr REASON FOR VISIT screening Encounters Encounter Location Date Provider Diagnosis [facility] [address] [place], [place] [phone] 08/26/2023 Sean Villatoro Jr Encounter for screening colonoscopy Z12.11 and Personal history of colonic polyps Z86.010 Assessments Encounter Date Diagnosis (ICD Code) Assessment Notes Treatment Notes Treatment Clinical Notes Section Notes 08/26/2023 Encounter for screening colonoscopy (ICD-10 - Z12.11) 08/26/2023 Personal history of colonic polyps (ICD-10 - Z86.010) Plan Of Treatment No Information Progress Notes * FANNY TINEO CDOB: [birth year] (64 yo M)Acc No.[id number]:08/26/2023 COLON WITH MAC Patient:?FANNY TINEO Provider:?Sean Villatoro MD :1960???Age:63 Y???Sex:Male Huang e:08/26/2023 Address:[id number] Pcp:Elio Drew MD Subjective: * Chief Complaints: * ???1. Screening. * Medical History:? Objective: * Vitals:? Assessment: * Assessment: 1.?Encounter for screening c olonoscopy - Z12.11 (Primary)???2.?Personal history of colonic polyps - Z86.010??? Plan: * Treatment: * Procedure Codes:?14458 DIAGN OSTIC COLONOSCOPY * Preventive Medicine:? ??ELVIN Screening:?Colonoscopy?Was interval between colonoscopies three years or more??Yes,?Was last colonoscopy performed three or more years ago??Yes,?Ten year follow-up for colonoscopy recommended??Yes,?Adenoma or other neoplasm detected during screening colonoscopy:?No.? * * The named appointment provid er may or may not be the originator of this progress note, and it is not deemed complete until electronically signed by the appointment provider. Sign off status: Pending * Provider:?Sean Villatoro MD Date:?0 08/26/2023 Generated for Merritt clark/Stephen/Erickitting on:?08/17/2024 07:48 AM EDT
--- OUTSIDE RECORDS SUMMARY | 2024-08-17 07:48 | XMS_ITS ---
Author Organization [facility] Address [address] [place] [address] Care Team Providers Care Brick Picker Name Role Phone Viki ALCALA, Elio Primary Care Provider Sean Poe Jr Unavailable Allergies Allergen (clinical drug ingredient) Drug/Non Drug Allergy documented on EMR Reaction Allergy Type Onset Date Status Kiwi Unknown Allergy Active pistachio nut allergenic extract Pistachio Nut (Diagnostic) Unknown Drug Allergy Active banana allergenic extract Banana (Diagnostic) Unknown Drug Allergy Active avocado allergenic extract avacado (uncoded) Unknown Allergy Active some fruits (uncoded) Unknown Allergy Active enviromental (uncoded) Unknown Allergy Active Latex Latex (uncoded) Unknown Allergy Acti ve REASON FOR VISIT Patient presents today for gerd Medications Medication SIG (Take, Route, Frequency, Duration) Notes [...] Once a day for 30 day(s) Active Problems Problem Type SNOMED Code ICD Code Onset Dates Problem Status W/U Status Risk Notes Problem 965045161 Colon cancer screening (Z12.11) Active confirmed Problem 665319806 Gastroesophageal reflux disease without esophagitis (K21.9) Active confirmed Vital Signs Temperature 97.5 degrees Fahrenheit 03/06/20 23 Blood pressure systolic 00 mm Hg 03/06/20 23 Blood pressure diastolic 00 mm Hg 023 Height 68.5 in 03/06/2023 Weight 244 lbs 03/06/2023 BMI 36.56 kg/m2 03/06/2023 Encounters Encounter Location Date Provider Diagnosis [facility] [address] [place] [address] 03/06/2023 Sean Villatoro Jr Colon cancer screening Z12.11 and Gastroesophageal reflux disease without esophagitis K21.9 Assessments Encounter Date Diagnosis (ICD Code) Assessment Notes Treatment Notes Treatment Clinical Notes Section Notes 03/06/2023 Colon cancer screening (ICD-10 - Z12.11) Colon cancer screening material was printed At this time, Tyler is doing well. We discussed the pathophysiology of reflux today. We discussed gastroesophageal reflux disease including diet, lifestyle modifications, and weight management. He will continue omeprazole. He is due for colorectal cancer screening. This will be arranged. He understands risks and benefits and agrees to proceed. He is advised to stop furosemide the day before the procedure, and Eliquis 3 days before. He will stop oral hypoglycemics the day before the procedure. 03/06/2023 Gastroesophageal reflux disease without esophagitis (ICD-10 - K21.9) At this time, Tyler is doing well. We discussed the pathophysiology of reflux today. We discussed gastroesophageal reflux disease including diet, lifestyle modifications, and weight management. He will continue omeprazole. He is due for colorectal cancer screening. This will be arranged. He understands risks and benefits and agrees to proceed. He is advised to stop furosemide the day before the procedure, and Eliquis 3 days before. He will stop oral hypoglycemics the day before the procedure. Plan Of Treatment Medication Medication Name Sig Start Date Stop [...] Up: 1 Year, Reason: Progress Notes * TYLER TINEO CDOB: [birth year] (63 yo M)Acc No.[id number]:03/06/2023 Progress Notes Patient:?TYLER TINEO Provider:?Sean Villatoro MD :1960???Age:63 Y???Sex:Male Huang e:03/06/2023 [facility] Pcp:Elio Drew MD Subjective: * Chief Complaints: * ???1. Patient presents today for gerd. * HPI: ???New symptom(s):? The patient is a pleasant 63-year-old man seen today for sedation. He has long-standing history of gastroesophageal reflux disease with substernal burning precipitated by typical foods, including spicy foods and fatty foods. He has no dysphagia, hematemesis, or melena. Weight has been stable, with an elevated BMI. He continues on omeprazole 40 mg daily, which controls his symptoms well. Previous evaluation has included upper endoscopy and August 2018, which showed no H. pylori or Damon's esophagus. We reviewed this today. ?He also has a personal history of colon polyps, and last underwent colonoscopy in August 2018. This was negative for polyps and biopsies from the ileum and sigmoid were normal. He is due for followup colonoscopy. He has no complaints of rectal bleeding or change in his bowel habits. * ROS:?General/Constitutional:?Change in appetite?denies.?Fatigue?denies.?ENT:?Patient denies?difficulty swallowing.?Respiratory:?Patient denies?shortness of breath.?Cardiovascular:?Patient denies?chest pain.?Gastrointestinal:?Comments?See HPI for details.?Genitourinary:?Difficulty urinating?denies.?Incontinence?denies.?Musculoskeletal:?Patient denies?muscle aches.?Skin:?Patient denies?pruritis.?Neurologic:?Patient denies?low back pain.?Psychiatric:?Patient denies?mental or physical abuse.? * Medical History:?Gastroesoph ageal reflux disease, EG, no HP or BE, Colonoscopy 09/04, negative for polyps, five-year followup for history of polyps, Hyperlipidemia, Atrial fibrillation , Hypertension, Diabetes mellitus type 2, Remote history of CVA, Elevated BMI. * Surgical History:?finger yvette joshua . * Family History:?Father: neris gonzales 89 yrs.?Mother: , diagnosed with Heart disease.? * Social History:?Tobacco Use:?Tobacco Use/Smoking?Are you a: nonsmoker.?Drugs/Alcohol:?Alcohol Screen?Points: 0, Interpretation: Negative.?Miscellaneous:?Marital status: . 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 * Medications:?Taking Multivit magana - Tablet 1 tablet Orally Once a day, Taking Rosuvastatin Calcium 40 MG Tablet 1 tablet Orally Once a day, Taking Lisinopril 10 MG Tablet 1 tablet Orally Once a day, Taking Eliquis 5 MG Tablet as directed Orally once a day, Taking Omeprazole 40 MG Capsule Delayed Release TAKE 1 CAPSULE BY MOUTH EVERY DAY , Notes: Patient needs to call office and schedule an appointment, Taking metFORMIN HCl 1000 MG Tablet Oral , Taking Metoprolol Succinate ER 25 MG Tablet Extended Release 24 Hour Oral , Taking Furosemide 20 MG Tablet Oral , Discontinued Amiodarone HCl 400 MG Tablet 1 tablet Orally Once a day, Discontinued Triamterene 50 MG Capsule 1/2 capsule Orally Once a day, Discontinued Betamethasone Dipropionate 0.05 % Emulsion 1 application to affected area Externally Twice a day, Discontinued Readi-Cat 2 2 % Suspension 450cc Orally as directed for the CT scan, Discontinued Fish Oil 1200 MG Capsule 1 capsule Orally Once a day, Discontinued Colyte with Flavor Packs 240 GM Solution Reconstituted As directed Orally Over the specified time., Medication List reviewed and reconciled with the patient * Allergies:?Latex, enviroment al, some fruits, Banana (Diagnostic), Kiwi, Pistachio Nut (Diagnostic), avacado. Objective: * Vitals:?Wt: 244 lbs, Ht: 68. 5 in, BMI:36.56 Index, BP: 00/00 mm Hg, Temp: 97.5. * Examination: ???General Examination: ?GENERAL APPEARANCE:?in no acute distress.?HEAD:?normocephalic.?EYES:?sclera non-icteric.?ORAL CAVITY:?mucosa moist.?NECK/THYROID:?no lymphadenopathy.?SKIN:?anicteric.?HEART:?S1, S2 normal, no murmurs.?LUNGS:?clear to auscultation bilaterally.?CHEST:?normal shape and expansion.?ABDOMEN:?soft, nontender, nondistended, bowel sounds present, no organomegaly .?EXTREMITIES:?no clubbing, cyanosis, or edema.?PSYCH:?cognitive function intact.? Assessment: * Assessment: 1.?Gastroesophageal reflux d isease without esophagitis - K21.9 (Primary)?2.?Colon cancer screening - Z12.11? At this time, Tyler is doing well. We discussed the pathophysiology of reflux today. We discussed gastroesophageal reflux disease including diet, lifestyle modifications, and weight management. He will continue omeprazole. He is due for colorectal cancer screening. This will be arranged. He understands risks and benefits and agrees to proceed. He is advised to stop furosemide the day before the procedure, and Eliquis 3 days before. He will stop oral hypoglycemics the day before the procedure. Plan: * Treatment: Notes: Colon cancer screening material was printed.?? * Procedure Codes:?3017F COLOR ECTAL CA SCREEN DOC REV, G9903 Pt scrn tbco id as non user, G9744 PATIENT NOT ELIG D/T ACTIVE DX HTN * Preventive Medicine:? ??Counseling:?Care goal follow-up plan:?Above Normal BMI Follow-up?Giving encouragement to exercise,?BMI management provided?Yes.? * Follow Up:?1 Year * * Sign off status: Completed true * Provider:?Sean Villatoro MD Date:?1 Generated for Merritt clark/Stephen/eTransmitting on:?08/17/2024 07:48 AM EDT History and Physical Notes * HPI (History of Present Illness) Category Sub-Category Detail Notes Category Not es New symptom(s) The patient is a pleasant 63-year-old man seen today for sedation. He has long-standing history of gastroesophageal reflux disease with substernal burning precipitated by typical foods, including spicy foods and fatty foods. He has no dysphagia, hematemesis, or melena. Weight has been stable, with an elevated BMI. He continues on omeprazole 40 mg daily, which controls his symptoms well. Previous evaluation has included upper endoscopy and August 2018, which showed no H. pylori or Damon's esophagus. We reviewed this today. He also has a personal history of colon polyps, and last underwent colonoscopy in August 2018. This was negative for polyps and biopsies from the ileum and sigmoid were normal. He is due for followup colonoscopy. He has no complaints of rectal bleeding or change in his bowel habits. Examination Category Sub-Category Detail Notes Category Not es General Examination GENERAL APPEARANCE: in no acute di stress HEAD: normocephalic EYES: sclera non-icteric NECK/THYROID: no lymphadenopathy HEART: S1, S2 normal, no mu rmurs CHEST: normal shape and exp ansion LUNGS: clear to auscultatio n bilaterally ABDOMEN: soft, nontender, non distended, bowel sounds present, no organomegaly SKIN: anicteric EXTREMITIES: no clubbing, cyanosi s, or edema PSYCH: cognitive function i ntact ORAL CAVITY: mucosa moist
--- OUTSIDE RECORDS SUMMARY | 2024-08-17 07:49 | XMS_ITS | Patient Health Record ---
Author Organization [facility] Address [address] [place] [address] Care Team Providers Care Merchandise Carrier Name Role Phone Viki ALCALA, Elio Primary [...] Latex Latex (uncoded) Unknown Allergy Acti ve Results Component Value Reference Range Notes Glucose, Whole Blood Reviewed date:08/28/2023 09:26:50 AM Interpretation: Performing Lab:[facility], [address] [place] [id number] Notes/Report: Glucose, Whole Blood 131 60-115 mg/dL METER # : [id number] Reason For Referral No Information Medications Medication SIG (Take, Route, Frequency, Duration) [...] Omeprazole 40 MG TAKE 1 CAPSULE BY [facility] EVERY DAY FOR 90 DAYS for 90 Active Furosemide 20 MG Oral for 28 A ctive metFORMIN HCl 1000 MG Oral for 30 Active Immunizations Vaccine Route Administration Date Status Comme nts Influenza Unknown 02/25/2018 Administered Problems Problem Type SNOMED Code ICD Code Onset Dates Problem Status W/U Status Risk Notes Problem 077056708 Colon cancer screening (Z12.11) Active confirmed Problem 326232615 Personal history of colonic polyps (Z86.010) Active confirmed Problem 10099064 Weight loss (R63.4) Active confirmed Problem 862512815 Gastroesophageal reflux disease without esophagitis (K21.9) Active confirmed Problem 986904792 Abdominal pain, generalized (R10.84) Active confirmed Problem 631194956 Elevated LFTs (R94.5) Active confirmed Problem 50907023 Loss of weight (R63.4) Active confirmed Encounters Encounter Location Date Provider Diagnosis [facility] [address] [place] [phone] 08/26/2023 Sean Villatoro Jr Encounter for screening colonoscopy Z12.11 and Personal history of colonic polyps Z86.010 Assessments Encounter Date Diagnosis (ICD Code) Assessment Notes Treatment Notes Treatment Clinical Notes Section Notes 08/26/2023 Encounter for screening colonoscopy (ICD-10 - Z12.11) 08/26/2023 Personal history of colonic polyps (ICD-10 - Z86.010) Plan Of Treatment Future Test Test Name Order Date COLONOSCOPY 08/04/2013 UPPER GI ENDOSCOPY 07/29/2018 COLONOSCOPY 07/29/2018 COLONOSCOPY 03/06/2023 Insurance Providers Payer Name Payer Address Payer Phone Subscriber Number Group Number Insured Name Patient Relationship to Insured Coverage Start Date Coverage End Date [facility] [address] [address] [place] [phone] [id number] FANNY TINEO Self - patient is the insured Medical (General) History Medical History History ICD Code Gastroesophageal reflux disease, EGD/, no HP or BE Colonoscopy 09/04, negative f or polyps, five-year followup for history of polyps Hyperlipidemia Atrial fibrillation Hypertension Diabetes mellitus type 2 Remote history of CVA Elevated BMI Surgical History Surgery Date(Month/Year) finger surgery
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
== END 2024-08-17 08:29 | disposition home or self-care (01) ==
LOC: HO.HUSH 07:45
PROVIDERS: PCP Internal Medicine; Visit Provider Nurse Practitioner Family
DX: Z13.9 Encounter for screening, unspecified (principal); N28.9 Disorder of kidney and ureter, unspecified
CPT/HCPCS: 99203

== ENCOUNTER → 2024-08-17 07:45 | Outpatient (BNVA) | payer MEDICARE, SELFPAY | PROVIDERS: PCP Internal Medicine; Visit Provider Nurse Practitioner Family | DX: N28.9 Disorder of kidney and ureter, unspecified (principal) | CPT/HCPCS: 81003; 99202 ==

== ENCOUNTER 2024-09-09 12:38 | Outpatient (AMB) | payer MEDICARE, SELFPAY ==
[2024-09-09 12:45] VITALS: BP 150/80; PULSE 64; O2SAT 96; BMI 36.7
--- NOTE | 2024-09-09 12:45 | A.OFFPC_ITS ---
Vital Signs 09/09/24 12:45 09/09/24 13:11 Height 5 ft 9 in Weight 248 lb 4 oz BMI 36.7 BP 150/80 H 150/98 H Blood Pressure Location Lt brachial Lt brachial Position Sitting Sitting Pulse 64 Pulse Source Pulse Oximeter Pulse Oximetry (%) 96 Oxygen Delivery Method Room Air Intake Visit Reasons: FRANCOISE from Dr. Drew/Annual exam Obiee Obia Solution Architect Required: No Accompanied by: Self / Same As Patient Allergies kiwi [KIWI] Allergy (Intermediate, Verified 09/09/24 13:06) RASH latex [Latex] Allergy (Intermediate, Verified 09/09/24 13:06) RASH Pistacia Vera (Pistachio) [PISTACIA VERA (PISTACHIO)] Allergy (Intermediate, Verified 09/09/24 13:06) RASH avocado [Avocado] Allergy (Unknown, Verified 09/09/24 13:06) UNKNOWN banana [Banana] Allergy (Unknown, Verified 09/09/24 13:06) UNKNOWN prednisone Adverse Reaction (Severe, Verified 09/09/24 13:06) Unknown Environmental Allergy (Mild, Uncoded 09/09/24 13:06) RUNNY NOSE Medication List - Last Reconciled 09/09/24 by Tae Phillips MD acetaminophen ER (Tylenol 8 Hour) 1,300 mg (2 x 650 mg) PO Q12H apixaban 5 mg PO BID blood-glucose sensor (Dexcom G7 Sensor device) As directed blood-glucose,platform inspector,cont (Dexcom G7 Occupational Therapist Per Diem) As directed flecainide 100 mg PO Q12H furosemide 20 mg PO 3XW lisinopril 10 mg PO DAILY metformin 1,000 mg PO DAILY metoprolol succinate ER 12.5 mg (1/2 x 25 mg) PO DAILY multivitamin 1 tab PO DAILY omeprazole 40 mg PO DAILY rosuvastatin 40 mg PO DAILY triamterene-hydrochlorothiazid 37.5-25 mg 1 tab PO DAILY Tobacco use date assessed: 09/09/24 Fall risk assessment: No Falls in past year Last assessed Fall Risk: 09/09/24 Dental Screening Dental Screen Date: 09/09/24 Did you have a dental visit in the last 12 months?: Yes Did you have a dental problem in the last 6 months where you did not have access to dental care?: No Was dental information given to patient?: Patient has dentist HPI FRANCOISE from Dr. Drew/Annual exam HPI Details Patient comes in today for his annual physical examination - is transferring over from Dr. Drew, who retired from the practice last month Patient states that he feels okay He denies any headaches or dizziness Denies any chest pains, no shortness of breath No nausea /vomiting, no abdominal pain No change in bowel habits noted He denies any acute urinary symptoms He had his screening colonoscopy done with Dr. Villatoro last year on 08/26/2023 - colonoscopy was normal and he was recommended to get repeat and years (2033) [facility] Medical History (Updated 09/12/24 @ 15:01 by Tae Phillips MD) Obesity (BMI 30-39.9) Diabetes mellitus Pure hypercholesterolemia Essential hypertension Low back pain Cervicalgia CVA (cerebral vascular accident) Hyperlipidemia GERD (gastroesophageal reflux disease) Diabetes Mass of left elbow Nocturnal hypoxemia INGA (obstructive sleep apnea) Varicose veins of both lower extremities Obesity HTN (hypertension) Paroxysmal atrial fibrillation Surgical History (Updated 09/12/24 @ 14:22 by Tae Phillips MD) Hx of colonoscopy History of hand surgery Hx of endoscopy Family History Father No problems noted. Mother No problems noted. 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 1. Little interest or pleasure in doing things: not at all 2. Feeling down, depressed, or hopeless: not at all 3. Trouble falling or staying asleep, or sleeping too much: not at all 4. Feeling tired or having little energy: not at all 5. Poor appetite or overeating: not at all 6. Feeling bad about yourself - or that you are a failure or have let yourself or your family down: not at all 7. Trouble concentrating on things, such as reading the newspaper or watching television: not at all 8. Moving or speaking so slowly that other people could have noticed. Or the opposite - being so fidgety or restless that you have been moving around a lot more than usual: not at all 9. Thoughts that you would be better off or of hurting yourself in some way: not at all Total score: 0 Depression Screening Interpretation: Negative Depression Screening Done: Yes 52771 - PHQ-9 Billing: Yes Source: Developed by Drs. Roddy Martinez, Lizbet Shell, Justin Tai and colleagues, with an educational raghavendra from [employer]. Thrive Questionnaire Date Thrive assessed: 09/09/24 I am a: Patient What is your living situation today?: I have a steady place to live Within the past 12 months, did the food you bought not last and you didn't have the money to get more?: Never true Within the past 12 months, did you worry whether your food would run out before you got money to buy more?: Never true Do you have trouble paying for medicines?: No Do you have trouble getting transportation to medical appointments?: No Do you have trouble paying your heating and electricity bill?: No Do you have trouble taking care of your child, family member or friend?: No Do you have trouble with day-to-day activities such as bathing, preparing meals, shopping, managing finances, etc.?: No Are you currently unemployed and looking for a job?: No Are you interested in more education?: No Please select the resources that you would like help with: None Currently or been in a relationship where the following occur: I choose not to answer THRIVE Score: 0 AUDIT C Alcohol Use Questionnaire (AUDIT-C) 1. How often do you have a drink containing alcohol?: Never 3. How often do you have six or more drinks on one occasion?: Never Total Score: 0 Score Reviewed/Action Taken: Yes LUIS-7 AMB Questionnaire LUIS-7 Date LUIS - 7 assessed: 09/09/24 Feeling nervous, anxious, or on edge: 0 = Not at all Not being able to stop or control worryin = Not at all Worrying too much about different things: 0 = Not at all Trouble relaxin = Not at all Being so restless that it is hard to sit still: 0 = Not at all Becoming easily annoyed or irritable: 0 = Not at all Feeling afraid as if something awful might happen: 0 = Not at all Total LUIS-7 score (0-4 normal; 5-9 mild; 10-14 moderate; 15-21 severe): 0 Source: Developed by Drs. Roddy Martinez, Lizbet Shell, Justin Tai and colleagues, with an educational raghavendra from [employer]. Review of Systems Const Denies chills, Denies fatigue, Denies fever(s), Denies headache(s), Denies malaise and Denies weakness Eyes Denies blurry vision, Denies change in vision, Denies irritation and Denies itchy eyes ENT Denies dysphagia, Denies dizziness, Denies otalgia, Denies headache(s), Denies nasal congestion, Denies neck pain, Denies odynophagia and Denies sore throat Card Denies chest pain, Denies rapid heart rate, Denies irregular heart rhythm, Denies palpitations and Denies dyspnea Resp Denies chest congestion, Denies cough, Denies dyspnea and Denies wheezing GI Denies abdominal pain, Denies bloating, Denies constipation, Denies dysphagia, Denies heartburn, Denies diarrhea, Denies nausea, Denies odynophagia and Denies vomiting Denies hematuria, Denies difficulty urinating, Denies dysuria, Denies urinary frequency and Denies urinary urgency Musc Denies back pain, Denies arthralgias, Denies joint swelling, Denies muscle weakness and Denies neck pain Skin/Breast Denies change in pigmentation, Denies lesions, Denies rash and Denies unusual bruising Neuro Denies dizziness, Denies headache(s), Denies paresthesias and Denies weakness Endo Denies fatigue and Denies palpitations Aller/Immun Denies itchy eyes and Denies wheezing Physical exam (Primary Care) Vital Signs: Last Vital Signs Pulse 64 09/09/24 12:45 BP 150/98 H 09/09/24 13:11 Pulse Ox 96 09/09/24 12:45 Oxygen Delivery Method Room Air 09/09/24 12:45 BMI result Body Mass Index 36.7 Tobacco/Smoking Status: Tobacco use Status Tobacco use date assessed 09/09/24 09/09/24 12:54 Patient Tobacco Use Status Never used Tobacco 09/09/24 12:54 e-Cigarette/Vaping Use Never Used 09/09/24 12:54 PHQ-9: PHQ-9 Score PHQ-9: Total score 0 09/09/24 13:13 Depression Screening Interpretation: Negative Thrive Assessment: Date of Thrive Assessment Date Thrive assessed 09/09/24 09/09/24 12:54 Currently or been in a relationship where the following occur: I choose not to answer Const General: no acute distress, alert and awake Orientation/consciousness: patient oriented x3 HENMT Head: Yes normocephalic and Yes atraumatic Ears: external ears normal, TM's normal bilaterally and EAC's normal General nose exam: No nasal discharge present Face and sinus: Yes normal facial exam and Yes sinuses nontender Teeth and gingiva: dentition normal Throat: Yes posterior oropharynx normal and Yes tonsils normal (no TP congestion) Eyes Eyelids: Yes eyelids normal Conjunctivae: conjunctivae normal Pupils: Equal, round and reactive pupils present EOM: EOMs intact bilaterally Neck Neck: Yes no lymphadenopathy and Yes supple Thyroid: Thyroid normal Resp Auscultation: clear to auscultation bilaterally, no rales and no wheezes Cardio Rate: regular rate Rhythm: regular rhythm Heart sounds: no murmurs GI Palpation (GI): Soft to palpation, nontender and No hepatosplenomegaly present Auscultation: normal bowel sounds General: Yes no CVA tenderness Back/Spine/Pelvis Back: no CVA tenderness Thoracic/Lumbar Spine: thoracic and lumbar spine normal to inspection Skin Lesions: no lesions Rashes: no rashes Neuro General: patient oriented x3, moves all extremities, no focal motor deficits and CN's II-XI intact bilaterally Cranial nerves: Yes Equal, round and reactive pupils present Cognition (Neuro): normal cognition Gait exam (Neuro): Normal gait present Extrem General: Yes no clubbing, cyanosis or edema Coding Level of Care Code Est Pt Level 4 (19309) Diagnoses Annual physical exam Z00.00 Paroxysmal atrial fibrillation I48.0 Essential hypertension I10 Pure hypercholesterolemia E78.00 Type 2 diabetes mellitus without complication, without long-term current use of insulin E11.9 Diabetes mellitus type: type 2 Diabetes mellitus rat exterminator insulin use: without custodial use Diabetes mellitus complication status: without complication Gastroesophageal reflux disease without esophagitis K21.9 Esophagitis presence: without esophagitis Obesity (BMI 30-39.9) E66.9 Additional Codes PHQ-9 - 49868 - PHQ-9 Billing: Yes ([id number]) Assessment & Plan Assessment & Plan (1) Annual physical exam: Code(s): Z00.00 - Encounter for general adult medical examination without abnormal findings Category: Medical Plan: Patient is currently up-to-date with his cancer screenings He had his screening colonoscopy done with Dr. Villatoro last year on 08/26/2023 - colonoscopy was normal and he was recommended to get repeat and years (2033) (2) Paroxysmal atrial fibrillation: Comment: follows w/[facility] Code(s): I48.0 - Paroxysmal atrial fibrillation Category: Medical Plan: Patient is currently sinus rhythm Continue Flecainide 1 mg Q 12 hours and Metoprolol ER 12.5 mg QD Continue Apixaban 5 mg BID for thromboembolism prophylaxis (3) Essential hypertension: Code(s): I10 - Essential (primary) hypertension Category: Medical Plan: Reinforced low sodium diet - goal is systolic BP of 120 mm or less Continue Lisinopril 10 mg QD, Metoprolol ER 12.5 mg QD and Triamterene-HCTZ 37.5-25 mg QD Continue Furosemide 20 mg 3 times a week (4) Pure hypercholesterolemia: Code(s): E78.00 - Pure hypercholesterolemia, unspecified Category: Medical Plan: Reinforced low cholesterol diet Continue Rosuvastatin 40 mg QD Will recheck his labs and fasting lipids in 4 months for follow up (5) Diabetes mellitus: Code(s): E11.9 - Type 2 diabetes mellitus without complications Category: Medical Qualifiers: Diabetes mellitus type: type 2 Diabetes mellitus rat exterminator insulin use: without rat exterminator use Diabetes mellitus complication status: without complication Qualified Code(s): E11.9 - Type 2 diabetes mellitus without complications Plan: His HgbA1c was most recently at 6.8% back in May 2024 - goal is at least <7.0% Reinforced diabetic diet Continue Metformin 1000 mg BID (6) GERD (gastroesophageal reflux disease): Code(s): K21.9 - Gastro-esophageal reflux disease without esophagitis Category: Medical Qualifiers: Esophagitis presence: without esophagitis Qualified Code(s): K21.9 - Gastro-esophageal reflux disease without esophagitis Plan: Dietary restrictions reinforced Continue Omeprazole 20 mg QD (7) Obesity (BMI 30-39.9): Code(s): E66.9 - Obesity, unspecified Category: Medical Plan: Reinforced diet/exercise as tolerated/lose weight Plan Follow up in 4 months Orders: Orders Lipid Panel 4 Months E78.00 - Pure hypercholesterolemia, unspecified Complete Blood Count Auto Diff 4 Months D64.9 - Anemia, unspecified UA CC w/rflx Micro + Cult 4 Months R30.0 - Dysuria Comprehensive [place]. Panel Fast 4 Months E78.00 - Pure hypercholesterolemia, unspecified Hemoglobin A1c 4 Months E11.9 - Type 2 diabetes mellitus without complications Microalbumin, Random (w Creat) 4 Months E11.9 - Type 2 diabetes mellitus without complications TSH reflex Free T4 4 Months E78.00 - Pure hypercholesterolemia, unspecified Vitamin D 25-OH Total 4 Months E55.9 - Vitamin D deficiency, unspecified
[2024-09-09 13:11] VITALS: BP 150/98
== END 2024-09-09 13:16 | disposition home or self-care (01) ==
LOC: HO.HMCH 12:39
PROVIDERS: PCP Internal Medicine; Visit Provider Internal Medicine
DX: I48.0 Paroxysmal atrial fibrillation (principal); E11.9 Type 2 diabetes mellitus without complications; E66.9 Obesity, unspecified; Z68.36 Body mass index [BMI] 36.0-36.9, adult; I10 Essential (primary) hypertension; E78.00 Pure hypercholesterolemia, unspecified; K21.9 Gastro-esophageal reflux disease without esophagitis

== ENCOUNTER → 2024-09-09 12:38 | Outpatient (BNVA) | payer MEDICARE, SELFPAY | PROVIDERS: PCP Internal Medicine; Visit Provider Internal Medicine | DX: Z00.00 Encounter for general adult medical examination without abnormal findings (principal); I48.0 Paroxysmal atrial fibrillation; I10 Essential (primary) hypertension; E78.00 Pure hypercholesterolemia, unspecified; E11.9 Type 2 diabetes mellitus without complications; K21.9 Gastro-esophageal reflux disease without esophagitis; E66.9 Obesity, unspecified; Z68.36 Body mass index [BMI] 36.0-36.9, adult | CPT/HCPCS: 96127; 99212 ==

== ENCOUNTER 2024-10-05 15:39 | Outpatient (REF) | payer MEDICARE, SELFPAY ==
--- NOTE | ~2024-10-05 | MR_ITS ---
EXAMINATION: MR ABDOMEN WITHOUT AND WITH CONTRAST CLINICAL INFORMATION: Disorder of kidney and ureter, unspecified. Complex septated exophytic cyst, left kidney. COMPARISON: Correlated to CT dated June 22, 2024. TECHNIQUE: MR abdomen was performed without and with use of 10 mL intravenous Gadavist gadolinium based contrast. Postcontrast images are performed in multiphase dynamic sequences. Imaging was performed in 3 planes. No reported immediate complications. FINDINGS: LUNG BASES: No enhancing lesion. LIVER, GALLBLADDER, AND BILIARY TREE: Liver measures 16 cm. No focal mass. Main portal vein, hepatic veins and intrahepatic portion of the IVC are patent. No intrahepatic biliary ductal dilatation. [Contracted. No pericholecystic fluid collection or gallbladder wall thickening. No intraluminal signal abnormality. Common bile duct measures 4 mm. PANCREAS: Focal, 5 mm nonenhancing fluid signal characteristic lesions in the head of the pancreas. Main pancreatic duct measures 2 mm. Reduced volume of the pancreatic parenchyma. No peripancreatic fluid collection. SPLEEN: 13 cm. No focal mass. ADRENAL GLANDS: No nodular lesion. KIDNEYS AND URETERS: Right kidney: Normal enhancement pattern of the renal parenchyma. No focal mass. No hydronephrosis. 2 mm cyst, upper pole. Left kidney: There is a 1.6 cm exophytic irregular septated enhancing intermediate to hypointense T1 and intermediate T2 lesion in the anterior lateral midportion/lower pole junction. No hydronephrosis. GASTROINTESTINAL TRACT: Abundant food contents in the stomach. Collapsed appearance of the transverse colon and left hemicolon. No intestinal obstruction pattern. No ascites. No concentric wall thickening. ABDOMINAL WALL: Small fat-containing umbilical hernia. LYMPH NODES: Prominent, nonspecific less than 12 mm lymph nodes in the retroperitoneum/periaortic. VASCULAR: No aneurysm or dissection, abdominal aorta. OSSEOUS STRUCTURES: Multilevel mild thoracolumbar spondylosis. MR/MR abdomen wo/w con IMPRESSION: 1.6 cm exophytic lesion Bosniak type III, left kidney. Mild prominent periaortic/retroperitoneal lymph nodes. Hepatosplenomegaly, mild. Electronically signed by: Ananda Stephens MD 10/06/2024 07:39 AM EDT
--- OUTSIDE RECORDS SUMMARY | 2024-10-05 16:38 | XMS_ITS | Patient Health Record ---
Author Organization [facility] Address [address] [place] [address] Care Team Providers Care Visual Merchandiser Name Role Phone Viki ALCALA, Elio Primary Care Provider Sean Poe Jr Unavailable [phone] Allergies Allergen (clinical drug ingredient) Drug/Non Drug Allergy documented on EMR Reaction Allergy Type Onset Date Status avocado allergenic extract avacado (uncoded) Unknown Allergy Active some fruits (uncoded) Unknown Allergy Active enviromental (uncoded) Unknown Allergy Active Latex Latex (uncoded) Unknown Allergy Acti ve Kiwi Unknown Allergy Active pistachio nut allergenic extract Pistachio Nut (Diagnostic) Unknown Drug Allergy Active banana allergenic extract Banana (Diagnostic) Unknown Drug Allergy Active Reason For Referral No Information Medications Medication [...] Omeprazole 40 MG TAKE 1 CAPSULE BY [facility] EVERY DAY FOR 90 DAYS for 90 Active Furosemide 20 MG Oral for 28 A ctive metFORMIN HCl 1000 MG Oral for 30 Active Immunizations Vaccine Route Administration Date Status Comme nts Influenza Unknown 02/25/2018 Administered Problems Problem Type SNOMED Code ICD Code Onset Dates Problem Status W/U Status Risk Notes Problem 899277249 Colon cancer screening (Z12.11) Active confirmed Problem 870827168 Personal history of colonic polyps (Z86.010) Active confirmed Problem 44701051 Weight loss (R63.4) Active confirmed Problem 941571354 Gastroesophageal reflux disease without esophagitis (K21.9) Active confirmed Problem 017453757 Abdominal pain, generalized (R10.84) Active confirmed Problem 780731650 Elevated LFTs (R94.5) Active confirmed Problem 68650738 Loss of weight (R63.4) Active confirmed Plan Of Treatment Future Test Test Name Order Date COLONOSCOPY 08/04/2013 UPPER GI ENDOSCOPY 07/29/2018 COLONOSCOPY 07/29/2018 COLONOSCOPY 03/06/2023 Insurance Providers Payer Name Payer Address Payer Phone Subscriber Number Group Number Insured Name Patient Relationship to Insured Coverage Start Date Coverage End Date [facility] [address] [address] [place] [address] [id number] FANNY TINEO Self - patient is the insured Medical (General) History Medical History History ICD Code Gastroesophageal reflux disease, EGD, no HP or BE Colonoscopy 09/04, negative f or polyps, five-year followup for history of polyps Hyperlipidemia Atrial fibrillation Hypertension Diabetes mellitus type 2 Remote history of CVA Elevated BMI Surgical History Surgery Date(Month/Year) finger surgery
--- OUTSIDE RECORDS SUMMARY | 2024-10-05 16:38 | XMS_ITS ---
Author Organization [facility] Address [address] [place] [address] Care Team Providers Care Advertising Sales Consultant Name Role Phone Elio Drew MD Primary Care Provider Sean Poe Jr [phone] REASON FOR VISIT insurance? Encounters Encounter Location Date Provider Diagnosis [facility] [address] [place] [address] 07/24/2023 Sean Villatoro Jr Plan Of Treatment No Information Progress Notes * FANNY TINEO CDOB: [birth year] (63 yo M)Acc No.[id number]:07/24/2023 Patient:?FANNY TINEO :1960???Age:63 Y???Sex:Male Address:[place] [address] * true * Date:? Generated for Bradi amber/Stephen/eTransmitting on:?10/05/2024 04:38 PM EDT
--- OUTSIDE RECORDS SUMMARY | 2024-10-05 16:38 | XMS_ITS ---
Author Organization [facility] Address [address] [place] [address] Care Team Providers Care Red Hat Linux Administrator Name Role Phone Viki ALCALA, Elio Primary Care Provider Sean Poe Jr REASON FOR VISIT screening Encounters Encounter Location Date Provider Diagnosis [facility] [address] [place], [place] [id number] 08/26/2023 Sean Villatoro Jr Encounter for screening colonoscopy Z12.11 and Personal history of colonic polyps Z86.010 Assessments Encounter Date Diagnosis (ICD Code) Assessment Notes Treatment Notes Treatment Clinical Notes Section Notes 08/26/2023 Encounter for screening colonoscopy (ICD-10 - Z12.11) 08/26/2023 Personal history of colonic polyps (ICD-10 - Z86.010) Plan Of Treatment No Information Progress Notes * FANNY TINEO CDOB: [birth year] (64 yo M)Acc No.[id number]:08/26/2023 COLON WITH MAC Patient:?FANNY TINEO Provider:?Sean Villatoro MD :1960???Age:63 Y???Sex:Male Huang e:08/26/2023 Address:[id number] Pcp:Elio Drew MD Subjective: * Chief Complaints: * ???1. Screening. * Medical History:? Objective: * Vitals:? Assessment: * Assessment: 1.?Encounter for screening c olonoscopy - Z12.11 (Primary)???2.?Personal history of colonic polyps - Z86.010??? Plan: * Treatment: * Procedure Codes:?36561 DIAGN OSTIC COLONOSCOPY * Preventive Medicine:? ??ELVIN [...] MD Date:?0 08/26/2023 Generated for Merritt clark/Stephen/Erickitting on:?10/05/2024 04:38 PM EDT
[2024-10-05] MEDS: gadobutroL 10 ML VIAL IVPUSH (17:25)
== END 2024-10-05 15:40 | disposition home or self-care (01) ==
LOC: HO.MRI 15:39
PROVIDERS: PCP Internal Medicine; Visit Provider Nurse Practitioner Family
DX: N28.9 Disorder of kidney and ureter, unspecified (principal)
CPT/HCPCS: 74183; A9585

== ENCOUNTER → 2024-10-05 15:39 | Outpatient (BNV) | payer MEDICARE, SELFPAY | PROVIDERS: PCP Internal Medicine; Visit Provider Radiology Diagnostic Radiology | DX: D49.511 Neoplasm of unspecified behavior of right kidney (principal) | CPT/HCPCS: 74183 ==

== ENCOUNTER 2024-10-14 09:15 | Outpatient (AMB) | payer MEDICARE, SELFPAY ==
--- NOTE | 2024-10-14 09:21 | A.OFFVIS_ITS ---
Intake Visit Reasons: 2m/MRI Intake Note: pt here today for: 2m/MRI Breakfast Server Required: No Allergies kiwi [KIWI] Allergy (Intermediate, Verified 10/14/24 13:03) RASH latex [Latex] Allergy (Intermediate, Verified 10/14/24 13:03) RASH Pistacia Vera (Pistachio) [PISTACIA VERA (PISTACHIO)] Allergy (Intermediate, Verified 10/14/24 13:03) RASH avocado [Avocado] Allergy (Unknown, Verified 10/14/24 13:03) UNKNOWN banana [Banana] Allergy (Unknown, Verified 10/14/24 13:03) UNKNOWN prednisone Adverse Reaction (Severe, Verified 10/14/24 13:03) Unknown Environmental Allergy (Mild, Uncoded 10/14/24 13:03) RUNNY NOSE Medication List - Last Reconciled 10/14/24 by CINDY Marti acetaminophen ER (Tylenol 8 Hour) 1,300 mg (2 x 650 mg) PO Q12H apixaban 5 mg PO BID blood-glucose sensor (Dexcom G7 Sensor device) As directed blood-glucose,research computing specialist,cont (Dexcom G7 Process Engineering Technician) As directed flecainide 100 mg PO Q12H furosemide 20 mg PO 3XW lisinopril 10 mg PO DAILY metformin 1,000 mg PO DAILY metoprolol succinate ER 12.5 mg (1/2 x 25 mg) PO DAILY multivitamin 1 tab PO DAILY omeprazole 40 mg PO DAILY rosuvastatin 40 mg PO DAILY triamterene-hydrochlorothiazid 37.5-25 mg 1 tab PO DAILY HPI Comments Details: Tyler is a very pleasant 64-year-old male patient of Dr. Drew. He has a past medical history of CVA, hyperlipidemia, GERD, diabetes, nocturnal hypoxemia, obstructive sleep apnea, varicose veins, obesity, cervicalgia, hypertension, and paroxysmal AFib. He presents to the office today for follow- up. Of note, patient was seen approximately 6 weeks ago as a new patient for complex cystic left kidney lesion lesion at which time a MRI renal mass protocol was ordered for further assessment evaluation. These results reviewed and communicated with the patient today. 10/10 1.6 cm exophytic lesion Bosniak type 3, left kidney. We discussed further treatment options and risks and benefits of these treatment options. We discussed close surveillance monitoring verses renal biopsy with cryoablation. This was discussed at length. All questions were answered. He otherwise denies any bothersome urinary issues. He denies urinary urgency, urinary frequency, incontinence, hematuria, dysuria, foul smelling urine, changes to urinary stream, flank pain, fever, and or chills. Previous workup has also included a CT 07/13 noted complex septated exophytic cystic lesion of the left kidney with recommending dictated imaging for further evaluation. He does report episodes of nocturia up to 2-3 times per night however does not find this bothersome and feels he is managing this well independently. He is happy with his current voiding parameters. In office urinalysis results reviewed with the patient today we discussed proteinuria. He does have a longstanding history of hypertension and diabetes. Will refer to Nephrology for further assessment evaluation. He otherwise offers no other issues or concerns at this time. In review of patient's chart it appears PSAs are as follows: 09/08 1.8, 11/09 0.8 PFSH Medical History (Updated 10/14/24 @ 10:07 by Karin Rivera [facility]) Obesity (BMI 30-39.9) Diabetes mellitus Pure hypercholesterolemia Essential hypertension Low back pain Cervicalgia CVA (cerebral vascular accident) Hyperlipidemia GERD (gastroesophageal reflux disease) Diabetes Mass of left elbow Nocturnal hypoxemia INGA (obstructive sleep apnea) Varicose veins of both lower extremities Obesity HTN (hypertension) Paroxysmal atrial fibrillation Surgical History (Updated 09/12/24 @ 14:22 by Tae Phillips MD) Hx of colonoscopy History of hand surgery Hx of endoscopy Family History Father No problems noted. Mother No problems noted. 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 Current occupational exposures/hazards: No Cognitive needs: No Hearing needs: No Vision needs: Yes Review of Systems Eyes Reports no additional complaints ENT Reports no additional complaints Card Reports as per [facility] Resp Reports as per HPI GI Reports no additional complaints Reports as per [facility] Musc Reports as per [facility] Neuro Reports as per HPI Psych Reports no additional complaints Endo Reports as per HPI Jose A/Lymph Reports no additional complaints Aller/Immun Reports no additional complaints Physical Exam Const General: cooperative, healthy appearing, comfortable, no acute distress, well developed, alert and awake Orientation/consciousness: patient oriented x3 Limitations: no limitations HEENT Head: Yes normal to inspection, Yes normocephalic and Yes atraumatic Ears: hearing grossly normal bilaterally Eyes General: appearance normal, both eyes and all related structures Neck Neck: Yes normal visual inspection and Yes trachea midline Chest Chest palpation & inspection: normal inspection of the chest Resp Effort & Inspection: normal respiratory effort and able to speak in complete sentences Cardio Rate: regular rate GI Inspection: Yes normal to inspection General: Yes no CVA tenderness Back/Spine/Pelvis Back: no CVA tenderness Skin General skin exam: no rashes or lesions noted Neuro General: patient oriented x3 Extrem General: Yes normal to inspection Psych Appearance: grossly normal and well kempt Mental Status: mental status grossly normal Speech and movement: Normal speech and movement present and Clear speech present Affect: normal affect Attitude: cooperative Thought process: Normal thought process present Thought content: Normal thought content present Insight: Fair insight present (Psych) Judgement: Fair judgement present (Psych) Results AMB Urinalysis, Automated UA Leukoctes 0 Rashid/uL Last Edit by Yris Emile on 10/14/24 09:37 UA Nitrite Negative Last Edit by Yris Emile on 10/14/24 09:37 UA Urobilinogen 17 mg/dL Last Edit by Yris Emile on 10/14/24 09:37 UA Protein 2 mg/dL Last Edit by Yris Emile on 10/14/24 09:37 UA pH 6.0 Last Edit by Yris Emile on 10/14/24 09:37 UA Blood 0 Frank/uL Last Edit by Yris Emile on 10/14/24 09:37 UA Specific [place] 1.025 Last Edit by Yris Emile on 10/14/24 09:37 UA Ketone Negative Last Edit by Yris Emile on 10/14/24 09:37 UA Bilirubin 0 mg/dL Last Edit by Yris Emile on 10/14/24 09:37 UA Glucose 0 mg/dL Last Edit by Yris Emile on 10/14/24 09:37 Results Reviewed Results Reviewed: Laboratory Last Values Urine pH (Auto) 6.0 10/14/24 09:26 Specific [place] (Auto) 1.025 10/14/24 09:26 Urine Protein (Auto) 2 mg/dL 10/14/24 09:26 Glucose (UA)(Auto) 0 mg/dL 10/14/24 09:26 Urine Ketones (Auto) Negative 10/14/24 09:26 Urine Blood (Auto) 0 Frank/uL 10/14/24 09:26 Urine Nitrite (Auto) Negative 10/14/24 09:26 Urine Bilirubin (Auto) 0 mg/dL 10/14/24 09:26 Urine Urobilinogen (Auto) 17 mg/dL 10/14/24 09:26 Leukocyte Esterase (Auto) 0 Rashid/uL 10/14/24 09:26 Date of Service: 10/05/24 Procedure(s): MR abdomen wo/w con FINDINGS: LUNG BASES: No enhancing lesion. LIVER, GALLBLADDER, AND BILIARY TREE: Liver measures 16 cm. No focal mass. Main portal vein, hepatic veins and intrahepatic portion of the IVC are patent. No intrahepatic biliary ductal dilatation. [Contracted. No pericholecystic fluid collection or gallbladder wall thickening. No intraluminal signal abnormality. Common bile duct measures 4 mm. PANCREAS: Focal, 5 mm nonenhancing fluid signal characteristic lesions in the head of the pancreas. Main pancreatic duct measures 2 mm. Reduced volume of the pancreatic parenchyma. No peripancreatic fluid collection. SPLEEN: 13 cm. No focal mass. ADRENAL GLANDS: No nodular lesion. KIDNEYS AND URETERS: Right kidney: Normal enhancement pattern of the renal parenchyma. No focal mass. No hydronephrosis. 2 mm cyst, upper pole. Left kidney: There is a 1.6 cm exophytic irregular septated enhancing intermediate to hypointense T1 and intermediate T2 lesion in the anterior lateral midportion/lower pole junction. No hydronephrosis. GASTROINTESTINAL TRACT: Abundant food contents in the stomach. Collapsed appearance of the transverse colon and left hemicolon. No intestinal obstruction pattern. No ascites. No concentric wall thickening. ABDOMINAL WALL: Small fat-containing umbilical hernia. LYMPH NODES: Prominent, nonspecific less than 12 mm lymph nodes in the retroperitoneum/periaortic. VASCULAR: No aneurysm or dissection, abdominal aorta. OSSEOUS STRUCTURES: Multilevel mild thoracolumbar spondylosis. IMPRESSION: 1.6 cm exophytic lesion Bosniak type III, left kidney. Mild prominent periaortic/retroperitoneal lymph nodes. Hepatosplenomegaly, mild. Assessment & Plan Assessment & Plan (1) Kidney lesion: Code(s): N28.9 - Disorder of kidney and ureter, unspecified Category: Medical (2) Proteinuria: Code(s): R80.9 - Proteinuria, unspecified Category: Medical Plan In office urinalysis results reviewed with the patient today; as noted above; proteinuria; will refer to Nephrology for further assessment evaluation. Recent MRI results reviewed with the patient today we discussed further treatment options and risks and benefits of these treatment options. He currently denies any bothersome urinary issues or concerns. He reports be happy with current voiding parameters. Will reassess renal lesion in 6 months with renal ultrasound with consideration of renal biopsy and cryotherapy. Follow-up in 6 months with imaging to be completed prior; or sooner with any issues, concerns, and or questions. Orders: Orders US renal BI 6 Months N28.9 - Disorder of kidney and ureter, unspecified AMB Urinalysis Automated Today Z13.9 - Encounter for screening, unspecified Referrals Nephrology Referral R80.9 - Proteinuria, unspecified Patient Instructions: The patient had an opportunity to ask questions regarding the treatment plan. All questions were answered. Physical exam, labs, and imaging were discussed and reviewed in detail. As well as risks, benefits, and discussion of treatment choices. No major barriers to understanding were identified. The patient expressed understanding and agreement with the above treatment plan. The patient was made aware they should contact our office by phone for worsening of their current condition, the appearance of new symptoms, or with any questions or concerns. Compliance is encouraged with any medications and follow up testing that is ordered. It is a privilege to be allowed the opportunity to participate in? your urological care.? Again, if you have any questions or concerns If you have any questions or concerns please do not hesitate to contact me. The office is [phone]. This note is constructed using voice recognition software. While every effort has been made to ensure accuracy battery tester errors may have been included. Yours sincerely, CINDY Marti Coding Level of Care Code Est Pt Level 3 (22857) Complex EM visit Add On G2211 Diagnoses Kidney lesion N28.9 Proteinuria R80.9
--- OUTSIDE RECORDS SUMMARY | 2024-10-14 09:39 | XMS_ITS ---
Author Organization [facility] Address [address] [place] [address] Care Team Providers Care Shove Up Name Role Phone Viki ALCALA, Elio Primary Care Provider Sean Poe Jr [phone] REASON FOR VISIT screening Encounters Encounter Location Date Provider Diagnosis [facility] Outpatient [address] [place], [place] [id number] 08/26/2023 Sean Villatoro Jr Encounter for screening colonoscopy Z12.11 and Personal history of colonic polyps Z86.010 Assessments Encounter Date Diagnosis (ICD Code) Assessment Notes Treatment Notes Treatment Clinical Notes Section Notes 08/26/2023 Encounter for screening colonoscopy (ICD-10 - Z12.11) 08/26/2023 Personal history of colonic polyps (ICD-10 - Z86.010) Plan Of Treatment No Information Progress Notes * FANNY TINEO CDOB: [birth year] (64 yo M)Acc No.[id number]:08/26/2023 COLON WITH MAC Patient:?FANNY TINEO Provider:?Sean Villatoro MD :1960???Age:63 Y???Sex:Male Huang e:08/26/2023 Address:[id number] Pcp:Elio Drew MD Subjective: * Chief Complaints: * ???1. Screening. * Medical History:? Objective: * Vitals:? Assessment: * Assessment: 1.?Encounter for screening c olonoscopy - Z12.11 (Primary)???2.?Personal history of colonic polyps - Z86.010??? Plan: * Treatment: * Procedure Codes:?62378 DIAGN OSTIC COLONOSCOPY * Preventive Medicine:? ??ELVIN [...] MD Date:?0 08/26/2023 Generated for Merritt clark/Stephen/Erickitting on:?10/14/2024 09:39 AM EDT
== END 2024-10-14 10:07 | disposition home or self-care (01) ==
LOC: HO.HUSH 09:17
PROVIDERS: PCP Internal Medicine; Visit Provider Nurse Practitioner Family
DX: N28.9 Disorder of kidney and ureter, unspecified (principal); R80.9 Proteinuria, unspecified; Z13.9 Encounter for screening, unspecified
CPT/HCPCS: 99213; G2211

== ENCOUNTER → 2024-10-14 09:15 | Outpatient (BNVA) | payer MEDICARE, SELFPAY | PROVIDERS: PCP Internal Medicine; Visit Provider Nurse Practitioner Family | DX: N28.9 Disorder of kidney and ureter, unspecified (principal); R80.9 Proteinuria, unspecified | CPT/HCPCS: 81003; 99212 ==

== ENCOUNTER 2024-11-01 10:39 | Outpatient (RCR) | payer OTHER, MEDICARE, SELFPAY ==
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
== END 2024-12-09 15:33 | disposition home or self-care (01) ==
LOC: HO.PT 10:39
PROVIDERS: PCP Internal Medicine; Visit Provider Nurse Practitioner Family
DX: M54.2 Cervicalgia (principal); M54.50 Low back pain, unspecified
CPT/HCPCS: 97035; 97110; 97140; 97162; 97530; 97535

== ENCOUNTER 2024-11-16 08:46 | Outpatient (REF) | payer MEDICARE, SELFPAY ==
--- OUTSIDE RECORDS SUMMARY | 2023-08-26 03:30 | XMS_ITS ---
Author Organization [facility] Address [address] [place] [address] Care Team Providers Care Quality Engineer Name Role Phone Viki ALCALA, Elio Primary Care Provider Sean Poe Jr [phone] REASON FOR VISIT screening Encounters Encounter Location Date Provider Diagnosis [facility] Outpatient [address] [place], [place] [phone] 08/26/2023 Sean Villatoro Jr Encounter for screening colonoscopy Z12.11 and Personal history of colonic polyps Z86.010 Assessments Encounter Date Diagnosis (ICD Code) Assessment Notes Treatment Notes Treatment Clinical Notes Section Notes 08/26/2023 Encounter for screening colonoscopy (ICD-10 - Z12.11) 08/26/2023 Personal history of colonic polyps (ICD-10 - Z86.010) Plan Of Treatment No Information Progress Notes * FANNY TINEO CDOB: [birth year] (64 yo M)Acc No.[id number]:08/26/2023 COLON WITH MAC Patient: Kristie LAUZaida FANNY Swain Provider: Kristie Villatoro MD :1960 A ge:63 Y S ex:Male Date:08/26/2023 Address:[facility] [address] [id number] Pcp:Elio Drew MD Subjective: * Chief Complaints: [...] 08/26/2023 Generated for Merritt clark/Stephen/Erickitting on: 0 11/16/2024 09:01 AM EDT
== END 2024-11-16 08:47 | disposition home or self-care (01) ==
LOC: HO.LAB 08:46
PROVIDERS: Internal Medicine; PCP Internal Medicine; Visit Provider Internal Medicine
DX: R73.9 Hyperglycemia, unspecified (principal)
CPT/HCPCS: 36415; 82947

== ENCOUNTER 2024-12-09 10:40 | Outpatient (REF) | payer MEDICARE, SELFPAY ==
[2024-12-09 11:39] LABS: Hematocrit 26.4 % (42.0-52.0); Hemoglobin 7.6 g/dl (14.0-18.0); Mean Corpuscular HGB Conc 28.8 g/dl (31.0-36.0); Mean Corpuscular Hemoglobin 19.9 pg (27.0-33.0); Mean Corpuscular Volume 69.1 fL (80.0-98.0); NRBC Abs Auto 0.000 X10*3/uL (0.0-0.012); NRBC Pct Auto 0.0 /100WBC (0.0-0.2); Platelet Count 169 X10*3/uL (160-400); Red Blood Count 3.82 X10*6/uL (4.60-5.80); White Blood Count 5.0 X10*3/uL (4.8-10.8)
[2024-12-09 12:14] LABS: Anion Gap 10 (12-20); Blood Urea Nitrogen 20 mg/dL (9-16); Calcium 9.0 mg/dL (8.4-10.2); Carbon Dioxide 25 mmol/L (22-29); Chloride 108 mmol/L (96-108); Estimated Glomerular Filt Rate > 60; Potassium 4.0 mmol/L (3.3-5.1); Sodium 139 mmol/L (135-145)
[2024-12-09 12:28] LABS: Ferritin 3 ng/mL (20-250)
[2024-12-09 16:16] LABS: Alanine Aminotransferase 11 U/L (0-40); Albumin Level 4.5 g/dL (3.5-5.0); Alkaline Phosphatase 66 U/L (39-117); Anion Gap 12 (12-20); Aspartate Amino Transferase 15 U/L (5-37); Blood Urea Nitrogen 21 mg/dL (9-16); Calcium 8.8 mg/dL (8.4-10.2); Carbon Dioxide 25 mmol/L (22-29); Chloride 108 mmol/L (96-108); Estimated Glomerular Filt Rate > 60; Iron 17 mcg/dL (45-160); Percent Iron Saturation 4 % (15-50); Potassium 4.2 mmol/L (3.3-5.1); Sodium 141 mmol/L (135-145); Total Iron Binding Capacity 410 mcg/dL (228-428); Total Protein 7.4 g/dL (6.5-8.0); Unsaturated Iron Binding 393 ug/dL
[2024-12-09 16:30] LABS: Ferritin 3 ng/mL (20-250)
[2024-12-09 16:42] LABS: Folate 11.1 ng/mL (> or = 4.0); Vitamin B12 302 pg/mL (200-900)
== END 2024-12-09 10:41 | disposition home or self-care (01) ==
LOC: HO.LAB 10:40
PROVIDERS: Nurse Practitioner Family; PCP Internal Medicine; Visit Provider Internal Medicine Cardiovascular Disease
DX: I48.0 Paroxysmal atrial fibrillation (principal); D64.9 Anemia, unspecified; I71.20 Thoracic aortic aneurysm, without rupture, unspecified; R42 Dizziness and giddiness; R06.02 Shortness of breath; I10 Essential (primary) hypertension; Z79.01 Long term (current) use of anticoagulants; Z79.84 Long term (current) use of oral hypoglycemic drugs; Z79.899 Other long term (current) drug therapy
CPT/HCPCS: 36415; 80048; 80053; 82607; 82728; 82746; 83540; 83615; 85027; 86850; 86900; 86901; 93005; 99212

== ENCOUNTER 2024-12-09 10:40 | Outpatient (AMB) | payer MEDICARE, SELFPAY ==
--- OUTSIDE RECORDS SUMMARY | 2023-08-26 03:30 | XMS_ITS ---
Author Organization [facility] Address [address] [place] [address] Care Team Providers Care Linux Kernel Engineer Name Role Phone Viki ALCALA, Elio Primary Care Provider Sean Poe Jr REASON FOR VISIT screening Encounters Encounter Location Date Provider Diagnosis [facility] [place] [address] [place], [place] [phone] 08/26/2023 Sean Villatoro Jr Encounter for screening colonoscopy Z12.11 and Personal history of colonic polyps Z86.010 Assessments Encounter Date Diagnosis (ICD Code) Assessment Notes Treatment Notes Treatment Clinical Notes Section Notes 08/26/2023 Encounter for screening colonoscopy (ICD-10 - Z12.11) 08/26/2023 Personal history of colonic polyps (ICD-10 - Z86.010) Plan Of Treatment No Information Progress Notes * FANNY TINEO CDOB: [birth year] (64 yo M)Acc No.[id number]:08/26/2023 COLON WITH MAC Patient: Kristie LAUZaida FANNY Swain Provider: Kristie Villatoro MD :1960 A ge:63 Y S ex:Male Date:08/26/2023 Address:[facility] [address] [id number] Pcp:Elio Drew MD Subjective: * Chief Complaints: * 1 [...] 08/26/2023 Generated for Merritt clark/Stephen/Erickitting on: 0 12/09/2024 11:32 AM EDT
[2024-12-09 10:45] VITALS: BP 140/74; PULSE 56; BMI 36.6
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
== END 2024-12-09 11:16 | disposition home or self-care (01) ==
LOC: HO.HCS 10:41
PROVIDERS: PCP Internal Medicine; Visit Provider Internal Medicine Cardiovascular Disease
DX: D64.9 Anemia, unspecified (principal); I48.0 Paroxysmal atrial fibrillation; I71.20 Thoracic aortic aneurysm, without rupture, unspecified; I10 Essential (primary) hypertension
CPT/HCPCS: 93010; 99214; G2211

== ENCOUNTER → 2024-12-10 09:00 | Outpatient (BNV) | payer MEDICARE, SELFPAY | PROVIDERS: PCP Internal Medicine; Referring Provider Physician Assistant; Visit Provider Nurse Practitioner Family | DX: D50.9 Iron deficiency anemia, unspecified (principal) | CPT/HCPCS: 99204 ==

== ENCOUNTER 2024-12-17 09:51 | Day surgery (SDC) | payer MEDICARE, SELFPAY ==
--- OUTSIDE RECORDS SUMMARY | 2023-08-26 03:30 | XMS_ITS ---
Author Organization [facility] Address [address] [place] [address] Care Team Providers Care Four Slide Operator Name Role Phone Alan ALCALA, Tae Primary Care Provider Sean Mcallister Jr REASON FOR VISIT screening Encounters Encounter Location Date Provider Diagnosis [facility] Outpatient [address] [place] [phone] 08/26/2023 Sean Villatoro Jr Encounter for screening colonoscopy Z12.11 and Personal history of colonic polyps Z86.010 Assessments Encounter Date Diagnosis (ICD Code) Assessment Notes Treatment Notes Treatment Clinical Notes Section Notes 08/26/2023 Encounter for screening colonoscopy (ICD-10 - Z12.11) 08/26/2023 Personal history of colonic polyps (ICD-10 - Z86.010) Plan Of Treatment Next Appt Details Provider Name:Sean palmer Jr, 12/17/2024 12:00:00 PM, [address] [place] [address], [phone], Progress Notes * FANNY TINEO CDOB: [birth year] (64 yo M)Acc No.[id number]:08/26/2023 COLON WITH MAC Patient: FANNY SLOAN Provider: Kristie Villatoro MD :1960 A ge:63 Y S ex:Male Date:08/26/2023 Address:[address] [place], [place] [phone] Pcp:Tae Phillips MD Subjective: * Chief Complaints: [...] 08/26/2023 Generated for Merritt clark/Stephen/Erickitting on: 0 12/15/2024 10:36 AM EDT
--- NOTE | 2024-12-16 10:06 | HO.ANESPROP2 ---
Documented by User: Adry Lucas NP 12/16/24 10:14 HPI - Anesthesia Eval Consult details Narrative: 64yo M for Upper Endoscopy Previously on Eliquis for afib. Last [facility] visit 11/2024 pt reported dizziness with marked anemia and Eliquis held until GI/Heme work up (remains on flecainide). Last H&H 7&26 requiring 2 units PRBC transfused. Now following with [facility] Heme. PMFSH Active Problems Active Problems: All Active Problems Anemia (Acute) Proteinuria (Acute) Obesity (BMI 30-39.9) (Acute) GERD (gastroesophageal reflux disease) (Acute) Diabetes mellitus (Acute) Pure hypercholesterolemia (Acute) Essential hypertension (Acute) Annual physical exam (Acute) Kidney lesion (Acute) Low back pain (Acute) Cervicalgia (Acute) Thoracic aortic aneurysm (Acute) Hyperlipidemia (Acute) Olecranon bursitis of left elbow (Acute) Diabetes mellitus with coincident hypertension (Acute) Physical exam (Acute) Trigger finger, right ring finger (Acute) Right upper quadrant abdominal pain (Acute) Patellofemoral arthritis of right knee (Acute) Trigger finger, left ring finger (Acute) Obesity (Acute) Heel pain (Acute) Foot pain, left (Acute) Obesity (Acute) Shortness of breath (Acute) Abnormal exercise tolerance test (Acute) Varicose veins of left lower extremity with inflammation (Acute) Snoring (Acute) Hypersomnia (Acute) Mass of left elbow (Acute) Nocturnal hypoxemia (Acute) INGA (obstructive sleep apnea) (Acute) Varicose veins of both lower extremities (Acute) Obesity (Acute) HTN (hypertension) (Acute) Paroxysmal atrial fibrillation (Acute) Past Medical History Medical History Obesity (BMI 30-39.9) Diabetes mellitus Pure hypercholesterolemia Essential hypertension Low back pain Cervicalgia CVA (cerebral vascular accident) Hyperlipidemia GERD (gastroesophageal reflux disease) Diabetes Mass of left elbow Nocturnal hypoxemia INGA (obstructive sleep apnea) Varicose veins of both lower extremities Obesity HTN (hypertension) Paroxysmal atrial fibrillation Family History Family History Father No problems noted. Mother No problems noted. 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 Current occupational exposures/hazards: No Cognitive needs: No Hearing needs: No Vision needs: Yes Meds Allergies Allergy/AdvReac Type Severity Reaction Status Date / Time kiwi (KIWI) Allergy Intermediate RASH Verified 12/09/24 10:47 latex (Latex) Allergy Intermediate RASH Verified 12/09/24 10:47 Pistacia Vera (Pistachio) Allergy Intermediate RASH Verified 12/09/24 10:47 (PISTACIA VERA (PISTACHIO)) avocado (Avocado) Allergy Unknown UNKNOWN Verified 12/09/24 10:47 banana (Banana) Allergy Unknown UNKNOWN Verified 12/09/24 10:47 prednisone AdvReac Severe Unknown Verified 12/09/24 10:47 Environmental Allergy Mild RUNNY NOSE Uncoded 12/09/24 10:47 Home Medications ?Medication ?Instructions ?Recorded ?Confirmed ?Last Taken ?Type omeprazole 40 mg capsule,delayed 40 mg PO DAILY 06/27/20 12/09/24 Unknown History release multivitamin 1 tab PO DAILY 08/17/24 12/09/24 Unknown History Exam Pertinent Lab Results Pertinent Lab Results: Laboratory Tests 12/09/24 12/09/24 11:27 15:32 WBC 5.0 Hgb 7.6 L Hct 26.4 L Plt Count 169 Sodium 141 Potassium 4.2 Chloride 108 Carbon Dioxide 25 BUN 21 H Creatinine 1.12 Narrative Narrative: EKG 11/2024 EKG Details: EKG shows sinus bradycardia with left axis deviation with pulmonary disease pattern, unchanged from before ECHO 2022 Conclusions: - 1. Normal LV ejection fraction 55-60% with mild LVH with impaired relaxation filling pattern 2. Normal cardiac valvular Dopplers 3. Mildly dilated ascending aorta at 4.2 cm 4. Normal RV systolic pressure 5. No gross pericardial effusion Assessment and Plan Assessment Anesthesia Assessment: Chart Reviewed Final Anesthetic Review Family History of Problems with Anesthesia: No History of Problems with Anesthesia: No Documented by User: Mary Lou Garcia MD 12/17/24 09:31 [facility] [place] Past Medical History Medical History Obesity (BMI 30-39.9) Diabetes mellitus Pure hypercholesterolemia Essential hypertension Low back pain Cervicalgia CVA (cerebral vascular accident) Hyperlipidemia GERD (gastroesophageal reflux disease) Diabetes Mass of left elbow Nocturnal hypoxemia INGA (obstructive sleep apnea) Varicose veins of both lower extremities Obesity HTN (hypertension) Paroxysmal atrial fibrillation Family History Family History Father No problems noted. Mother No problems noted. 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 Current occupational exposures/hazards: No Cognitive needs: No Hearing needs: No Vision needs: Yes Meds Allergies Allergy/AdvReac Type Severity Reaction Status Date / Time kiwi (KIWI) Allergy Intermediate RASH Verified 12/09/24 10:47 latex (Latex) Allergy Intermediate RASH Verified 12/09/24 10:47 Pistacia Vera (Pistachio) Allergy Intermediate RASH Verified 12/09/24 10:47 (PISTACIA VERA (PISTACHIO)) avocado (Avocado) Allergy Unknown UNKNOWN Verified 12/09/24 10:47 banana (Banana) Allergy Unknown UNKNOWN Verified 12/09/24 10:47 prednisone AdvReac Severe Unknown Verified 12/09/24 10:47 Environmental Allergy Mild RUNNY NOSE Uncoded 12/09/24 10:47 Home Medications ?Medication ?Instructions ?Recorded ?Confirmed ?Last Taken ?Type omeprazole 40 mg capsule,delayed 40 mg PO DAILY 06/27/20 12/09/24 Unknown History release multivitamin 1 tab PO DAILY 08/17/24 12/09/24 Unknown History Exam Airway Mallampati Class: II TM Dist: <=3cm Neck ROM: Limited Heart: RRR Lungs: CTA Assessment and Plan Assessment Anesthesia Assessment: Anesthesia Plan Discussed Final Anesthetic Review NPO: Yes ASA Class: III Final Preanesthetic Review: No Changes in Pt Med Stat, Meds/Allgs Chart Reviewed, Consent Obtained/Reviewed and Anes Risks/Benef Reviewed Patient Risk: Intermediate Procedure Risk: Low Anesthetic Plan Anesthetic Plan: Agree w/ Assess. and Plan and TIVA Disposition: Standard PACU
[2024-12-17 10:18] VITALS: BMI 37.2
--- NOTE | 2024-12-17 10:38 | MHC.SHP ---
Pre-Procedural Eval Section A - 24 Hr Update-Section A only Date of Service: 12/17/24 The patient is an INPATIENT: No Changes since office visit: No Cold of Flu in the past 2 weeks, No New Medical Problems, No Changes in Medication and No Patient answered all questions The patient has been examined within 24 hours of the surgical procedure. The History & Physical has been completed within 30 days and I have reviewed it.: Yes Section B - Complete if H&P > 30 days Chief Complaint: Anemia, unspecified Allergies: Allergies Allergy/AdvReac Type Severity Reaction Status Date / Time kiwi (KIWI) Allergy Intermediate RASH Verified 12/09/24 10:47 latex (Latex) Allergy Intermediate RASH Verified 12/09/24 10:47 Pistacia Vera (Pistachio) Allergy Intermediate RASH Verified 12/09/24 10:47 (PISTACIA VERA (PISTACHIO)) avocado (Avocado) Allergy Unknown UNKNOWN Verified 12/09/24 10:47 banana (Banana) Allergy Unknown UNKNOWN Verified 12/09/24 10:47 prednisone AdvReac Severe Unknown Verified 12/09/24 10:47 Environmental Allergy Mild RUNNY NOSE Uncoded 12/09/24 10:47 Plan I have reviewed the history and physical and performed a pertinent physical examination on my patient. No changes have occurred unless specified. Time Spent With Patient Time: Total time managing care of this patient today ____ minutes.
[2024-12-17 10:42] LABS: Glucose, Whole Blood 116 mg/dL (60-115)
[2024-12-17] MEDS: Lactated Ringers 1,000 ML 100 ML IVCONT (10:42)
[2024-12-17 10:43] VITALS: BP 180/93; PULSE 55; RESP 16; TEMP 36.3; O2SAT 96
[2024-12-17 11:18] VITALS: BP 141/67; PULSE 72; RESP 16; TEMP 36.3; O2SAT 99
[2024-12-17 11:33] VITALS: BP 133/64; PULSE 60; RESP 20; TEMP 36.5; O2SAT 96
--- NOTE | 2024-12-17 12:06 | OP_ITS ---
DATE OF SERVICE: 12/17/2024 SURGEON: Sean Villatoro MD INDICATIONS: Iron deficiency anemia. PREOPERATIVE DIAGNOSIS: POSTOPERATIVE DIAGNOSIS: PROCEDURE PERFORMED: ESTIMATED BLOOD LOSS: COMPLICATIONS: ANESTHESIA: ASSISTANTS: SPECIMENS: PROCEDURE: Upper endoscopy with biopsy and snare polypectomy. MEDICATIONS: Monitored anesthesia care. DESCRIPTION OF PROCEDURE: History and Physical performed. The risks and benefits of the procedure were explained to the patient and informed consent was obtained. The patient was placed in the left lateral decubitus position. The Olympus video gastroscope was introduced into the esophagus, stomach, and duodenum. Examination was performed. The scope was removed. He tolerated the procedure well and was returned to recovery area in stable condition. FINDINGS: Esophagus: The esophagus was normal. Stomach: The stomach showed no evidence of masses or ulcers. There were 2 inflamed gastric polyps in the body. The largest measuring approximately 10 mm. These were removed with a snare. The 1st was recovered by a Pizano net. The 2nd was recovered via suction. Two other gastric polyps were identified, but did not appear inflamed, they were not removed. Antral biopsies were obtained. Duodenum: The bulb and 2nd portion were normal. Biopsies were obtained from the 2nd portion. IMPRESSION: 1. Iron-deficiency anemia. 2. Gastric polyps, likely source for gastrointestinal blood loss. RECOMMENDATIONS: 1. Follow up the biopsy results. 2. Continue proton pump inhibitor. 3. Monitor hematocrit. MD BG Allison/KELLY / [id number]
== END 2024-12-17 12:08 | disposition home or self-care (01) ==
PROVIDERS: PCP Internal Medicine; Visit Provider Internal Medicine Gastroenterology
PROC: 0DJ08ZZ Inspection of Upper Intestinal Tract, Via Natural or Artificial Opening Endoscopic (ICD-10-PCS; CPT 43235; principal; 2024-12-17 12:00)
DX: D50.9 Iron deficiency anemia, unspecified (principal); K29.50 Unspecified chronic gastritis without bleeding; K31.7 Polyp of stomach and duodenum; K21.9 Gastro-esophageal reflux disease without esophagitis; I10 Essential (primary) hypertension; I48.91 Unspecified atrial fibrillation; E78.5 Hyperlipidemia, unspecified; E11.9 Type 2 diabetes mellitus without complications; G47.33 Obstructive sleep apnea (adult) (pediatric); Z86.73 Personal history of transient ischemic attack (TIA), and cerebral infarction without residual deficits; Z79.01 Long term (current) use of anticoagulants; Z79.84 Long term (current) use of oral hypoglycemic drugs; Z79.899 Other long term (current) drug therapy; Z91.040 Latex allergy status; Z88.8 Allergy status to other drugs, medicaments and biological substances; Z98.890 Other specified postprocedural states
CPT/HCPCS: 43251; 43239; 82947; 88305; 88313; 88342; J2704

== ENCOUNTER 2025-01-06 11:05 | Outpatient (AMB) | payer MEDICARE, SELFPAY ==
--- OUTSIDE RECORDS SUMMARY | 2023-08-26 03:30 | XMS_ITS ---
Author Organization [facility] Address [address] [place] [address] Care Team Providers Care Cage Loader Name Role Phone Alan ALCALA, Tae Primary Care Provider Keven Villatoro Jr, Sean Pritchard REASON FOR VISIT screening Encounters Encounter Location Date Provider Diagnosis [facility] [place] [address] [place] [phone] 08/26/2023 Sean Villatoro Jr Encounter for screening colonoscopy Z12.11 and Personal history of colonic polyps Z86.010 Assessments Encounter Date Diagnosis (ICD Code) Assessment Notes Treatment Notes Treatment Clinical Notes Section Notes 08/26/2023 Encounter for screening colonoscopy (ICD-10 - Z12.11) 08/26/2023 Personal history of colonic polyps (ICD-10 - Z86.010) Plan Of Treatment Next Appt Details Provider Name:Sean palmer Jr, 06/30/2025 01:55:00 PM, [address], [address], [place], [address], Progress Notes * FANNY TINEO CDOB: [birth year] (64 yo M)Acc No.[id number]:08/26/2023 COLON WITH MAC Patient: FANNY SLOAN Provider: Kristie Villatoro MD :1960 A ge:63 Y S ex:Male Date:08/26/2023 Address:[address] [place] [address] [facility] Pcp:Tae Phillips MD Subjective: * Chief Complaints: [...] 08/26/2023 Generated for Merritt clark/Stephen/Erickitting on: 0 01/06/2025 12:43 PM EDT
--- NOTE | 2025-01-06 11:28 | A.OFFPC_ITS ---
Vital Signs 01/06/25 11:30 Height 5 ft 9 in Weight 247 lb 2 oz BMI 36.5 BP 144/72 H Blood Pressure Location Rt brachial Position Sitting Pulse 66 Pulse Source Pulse Oximeter Temp 97.3 F Temp Source Temporal Artery Scan Pulse Oximetry (%) 96 Oxygen Delivery Method Room Air Intake Visit Reasons: 4mth f/u Allergies kiwi (KIWI) Allergy (Intermediate, Verified 01/06/25 11:53) RASH latex (Latex) Allergy (Intermediate, Verified 01/06/25 11:53) RASH Pistacia Vera (Pistachio) (PISTACIA VERA (PISTACHIO)) Allergy (Intermediate, Verified 01/06/25 11:53) RASH avocado (Avocado) Allergy (Unknown, Verified 01/06/25 11:53) UNKNOWN banana (Banana) Allergy (Unknown, Verified 01/06/25 11:53) UNKNOWN prednisone Adverse Reaction (Severe, Verified 01/06/25 11:53) Unknown Environmental Allergy (Mild, Uncoded 01/06/25 11:53) RUNNY NOSE Medication List - Last Reconciled 01/06/25 by Tae Phillips MD acetaminophen ER (Tylenol 8 Hour) 1,300 mg (2 x 650 mg) PO Q12H apixaban 5 mg PO BID blood-glucose sensor (Dexcom G7 Sensor device) As directed blood-glucose,superintendent local,cont (Dexcom G7 Corporate Compliance Director) As directed cyanocobalamin (vitamin B-12) 1,000 mcg sublingual DAILY flecainide 100 mg PO Q12H folic acid 1 mg PO DAILY furosemide 20 mg PO 3XW lisinopril 10 mg PO DAILY metformin 1,000 mg PO DAILY metoprolol succinate ER 12.5 mg (1/2 x 25 mg) PO DAILY multivitamin 1 tab PO DAILY omeprazole 40 mg PO DAILY rosuvastatin 40 mg PO DAILY triamterene-hydrochlorothiazid 37.5-25 mg 1 tab PO DAILY Held on 02/16/21. Instructions: Doctor's Order Tobacco use date assessed: 01/06/25 Fall risk assessment: No Falls in past year Last assessed Fall Risk: 01/06/25 Dental Screening Dental Screen Date: 01/06/25 Did you have a dental visit in the last 12 months?: Yes Did you have a dental problem in the last 6 months where you did not have access to dental care?: No Was dental information given to patient?: Patient has dentist HPI 4mth f/u HPI Details Patient comes in today for his follow-up visit He was admitted to the hospital last month when he was noted by Cardiology at his follow-up visit with them to have anemia with a hemoglobin of 7.6 Patient did report at the time that he was having black stool over the past 2-3 months and his Eliquis was immediately held He was given 2 units of packed RBC while he was in the hospital and was referred back to his GI, Dr. Villatoro, for urgent upper endoscopy Patient just had a colonoscopy done last year on 08/26/2023, which came back normal except for few diverticula seen scattered throughout the colon EGD done on 12/17/2024 revealed 4 gastric polyps, 2 of which were inflamed and were removed for biopsy - pathology showed these polyps removed were hyperplastic gastric polyps but 1 of them presented with surface erosion, which was likely the source of patient's recent GI bleed His esophagus and duodenum were both normal Patient was started back on omeprazole 40 mg QD and states that he has had no GI bleed since as he is no longer seeing any black discoloration to his stool He is also now back on Eliquis 5 mg BID for thromboembolism prophylaxis due to his paroxysmal atrial fibrillation States that he currently feels okay He denies any headaches or dizziness Denies any chest pains, no increased shortness of breath No nausea/vomiting, no abdominal pain No change in bowel habits noted [facility] Medical History Obesity (BMI 30-39.9) Diabetes mellitus Pure hypercholesterolemia Essential hypertension Low back pain Cervicalgia CVA (cerebral vascular accident) Hyperlipidemia GERD (gastroesophageal reflux disease) Diabetes Mass of left elbow Nocturnal hypoxemia INGA (obstructive sleep apnea) Varicose veins of both lower extremities Obesity HTN (hypertension) Paroxysmal atrial fibrillation Surgical History Hx of colonoscopy History of hand surgery Hx of endoscopy Family History Father No problems noted. Mother No problems noted. 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 1. Little interest or pleasure in doing things: not at all 2. Feeling down, depressed, or hopeless: not at all 3. Trouble falling or staying asleep, or sleeping too much: not at all 4. Feeling tired or having little energy: not at all 5. Poor appetite or overeating: not at all 6. Feeling bad about yourself - or that you are a failure or have let yourself or your family down: not at all 7. Trouble concentrating on things, such as reading the newspaper or watching television: not at all 8. Moving or speaking so slowly that other people could have noticed. Or the opposite - being so fidgety or restless that you have been moving around a lot more than usual: not at all 9. Thoughts that you would be better off or of hurting yourself in some way: not at all Total score: 0 Depression Screening Interpretation: Negative Depression Screening Done: Yes 95724 - PHQ-9 Billing: Yes Source: Developed by Drs. Roddy Martinez, Lizbet Shell, Justin Tai and colleagues, with an educational raghavendra from [employer]. Thrive Questionnaire Date Thrive assessed: 09/09/24 I am a: Patient What is your living situation today?: I have a steady place to live Within the past 12 months, did the food you bought not last and you didn't have the money to get more?: Never true Within the past 12 months, did you worry whether your food would run out before you got money to buy more?: Never true Do you have trouble paying for medicines?: No Do you have trouble getting transportation to medical appointments?: No Do you have trouble paying your heating and electricity bill?: No Do you have trouble taking care of your child, family member or friend?: No Do you have trouble with day-to-day activities such as bathing, preparing meals, shopping, managing finances, etc.?: No Are you currently unemployed and looking for a job?: No Are you interested in more education?: No Please select the resources that you would like help with: None Currently or been in a relationship where the following occur: I choose not to answer THRIVE Score: 0 AUDIT C Alcohol Use Questionnaire (AUDIT-C) 1. How often do you have a drink containing alcohol?: Never 3. How often do you have six or more drinks on one occasion?: Never Total Score: 0 Score Reviewed/Action Taken: Yes LUIS-7 AMB Questionnaire LUIS-7 Date LUIS - 7 assessed: 09/09/24 Feeling nervous, anxious, or on edge: 0 = Not at all Not being able to stop or control worryin = Not at all Worrying too much about different things: 0 = Not at all Trouble relaxin = Not at all Being so restless that it is hard to sit still: 0 = Not at all Becoming easily annoyed or irritable: 0 = Not at all Feeling afraid as if something awful might happen: 0 = Not at all Total LUIS-7 score (0-4 normal; 5-9 mild; 10-14 moderate; 15-21 severe): 0 Source: Developed by Drs. Roddy Martinez, Lizbet Shell, Justin Tai and colleagues, with an educational raghavendra from [employer]. Review of Systems Const Denies chills, Reports fatigue, Denies fever(s) and Denies headache(s) ENT Denies dysphagia, Denies dizziness, Denies otalgia, Denies headache(s), Denies neck pain, Denies odynophagia and Denies sore throat Card Denies chest pain, Denies rapid heart rate, Denies palpitations and Denies dyspnea Resp Denies chest congestion, Denies cough and Denies dyspnea GI Denies abdominal pain, Denies constipation, Denies dysphagia, Denies heartburn, Denies diarrhea, Denies nausea, Denies odynophagia and Denies vomiting Denies difficulty urinating, Denies dysuria, Denies nocturia and Denies urinary frequency Musc Denies back pain, Denies arthralgias and Denies neck pain Skin/Breast Denies rash Neuro Denies dizziness, Denies headache(s) and Denies paresthesias Endo Reports fatigue and Denies palpitations Physical exam (Primary Care) Vital Signs: Last Vital Signs Temp 97.3 F 01/06/25 11:30 Pulse 66 01/06/25 11:30 BP 144/72 H 01/06/25 11:30 Pulse Ox 96 01/06/25 11:30 Oxygen Delivery Method Room Air 01/06/25 11:30 BMI result Body Mass Index 36.5 Tobacco/Smoking Status: Tobacco use Status Tobacco use date assessed 01/06/25 01/06/25 11:36 Patient Tobacco Use Status Never used Tobacco 01/06/25 11:28 e-Cigarette/Vaping Use Never Used 01/06/25 11:28 PHQ-9: PHQ-9 Score PHQ-9: Total score 0 01/06/25 11:47 Depression Screening Interpretation: Negative Thrive Assessment: Date of Thrive Assessment Date Thrive assessed 09/09/24 01/06/25 11:28 Currently or been in a relationship where the following occur: I choose not to answer Const General: no acute distress and alert HENMT Ears: TM's normal bilaterally and EAC's normal Throat: Yes posterior oropharynx normal and Yes tonsils normal (no TP congestion) Neck Neck: Yes no lymphadenopathy and Yes supple Thyroid: Thyroid normal Resp Auscultation: clear to auscultation bilaterally, no rales and no wheezes Cardio Rate: regular rate Rhythm: regular rhythm Heart sounds: no murmurs GI Palpation (GI): Soft to palpation and nontender Auscultation: normal bowel sounds General: Yes no CVA tenderness Back/Spine/Pelvis Back: no CVA tenderness Thoracic/Lumbar Spine: No lumbar spinal tenderness Skin Rashes: no rashes Extrem General: Yes no clubbing, cyanosis or edema Results AMB Hemoglobin A1c AMB Hemoglobin A1c 6.4 % Last Edit by Mary Camejo CMA on 01/06/25 11:40 Results Reviewed Results Reviewed: Laboratory Last Values Hgb A1c (Clinic) 6.4 % (4.0-6.0) H 01/06/25 11:36 Laboratory Tests 12/09/24 12/22/24 15:32 09:31 WBC 5.2 Hgb 10.2 L D Hct 33.7 L D Plt Count 171 Sodium 141 Potassium 4.2 Creatinine 1.12 Estimated GFR > 60 Random Glucose 116 H Calcium 8.8 Iron 26 L TIBC 428 % Saturation 6 L Ferritin 5 L AST 15 ALT 11 Lactate Dehydrogenase 163 Vitamin B12 302 Coding Level of Care Code Est Pt Level 4 (11817) Complex EM visit Add On G2211 Diagnoses Anemia due to acute blood loss D62 Anemia type: other cause Other causes of anemia: acute posthemorrhagic Paroxysmal atrial fibrillation I48.0 Essential hypertension I10 Pure hypercholesterolemia E78.00 Type 2 diabetes mellitus without complication, without long-term current use of insulin E11.9 Diabetes mellitus type: type 2 Diabetes mellitus intermediate insulin use: without long term care phlebotomist use Diabetes mellitus complication status: without complication Obesity (BMI 30-39.9) E66.9 Additional Codes PHQ-9 - 01921 - PHQ-9 Billing: Yes ([id number]) Assessment & Plan Assessment & Plan (1) Anemia: Code(s): D64.9 - Anemia, unspecified Category: Medical Qualifiers: Anemia type: other cause Other causes of anemia: acute posthemorrhagic Qualified Code(s): D62 - Acute posthemorrhagic anemia Plan: Due to GI bleeding from inflamed gastric polyp, identified by EGD on 12/17/2024 and required blood transfusion of 2 units of PRBC - currently resolved His last H/H on 12/22/2024 was at 10.2/33.7 Will have patient recheck his labs and CBC early next week for follow-up Continue Omeprazole 40 mg QD Follow up with GI as scheduled (2) Paroxysmal atrial fibrillation: Comment: follows w/HCS Code(s): I48.0 - Paroxysmal atrial fibrillation Category: Medical Plan: Patient is currently sinus rhythm Continue Flecainide 1 mg Q 12 hours and Metoprolol ER 12.5 mg QD Continue Apixaban 5 mg BID for thromboembolism prophylaxis (3) Essential hypertension: Code(s): I10 - Essential (primary) hypertension Category: Medical Plan: Reinforced low sodium diet - goal is systolic BP of 120 mm or less Continue Lisinopril 10 mg QD and Metoprolol ER 12.5 mg QD; his Triamterene-HCTZ 37.5-25 mg QD was discontinued recently Continue Furosemide 20 mg 3 times a week (4) Pure hypercholesterolemia: Code(s): E78.00 - Pure hypercholesterolemia, unspecified Category: Medical Plan: Patient was not able to get his follow-up labs done prior to coming in today although he did have several labs done over the past month related to his recent admission but these did not include a fasting lipid profile As patient is being instructed to get his CBC rechecked early next week, we will also have him get all of his previously ordered labs done at the same time Reinforced low cholesterol diet Continue Rosuvastatin 40 mg QD Will recheck his labs and fasting lipids in 4 months for follow up (5) Diabetes mellitus: Code(s): E11.9 - Type 2 diabetes mellitus without complications Category: Medical Qualifiers: Diabetes mellitus type: type 2 Diabetes mellitus intermediate insulin use: without intermediate use Diabetes mellitus complication status: without complication Qualified Code(s): E11.9 - Type 2 diabetes mellitus without complications Plan: His in-office HgbA1c today is at 6.4% (HgbA1c was at 6.8% back in May 2024) - goal is at least <7.0% Reinforced diabetic diet Continue Metformin 1000 mg BID (6) Obesity (BMI 30-39.9): Code(s): E66.9 - Obesity, unspecified Category: Medical Plan: Reinforced diet/exercise as tolerated/lose weight Plan Follow-up in 4 months Orders: Orders AMB Hemoglobin A1c 01/06/ Z13.9 - Encounter for screening, unspecified Complete Blood Count Auto Diff 4 Months D64.9 - Anemia, unspecified Comprehensive [place]. Panel Fast 4 Months E78.00 - Pure hypercholesterolemia, unspecified TSH reflex Free T4 4 Months E78.00 - Pure hypercholesterolemia, unspecified Vitamin B12 and Folate 4 Months E53.8 - Deficiency of other specified B group vitamins Hemoglobin A1c 4 Months E11.9 - Type 2 diabetes mellitus without complications Lipid Panel 4 Months E78.00 - Pure hypercholesterolemia, unspecified UA CC w/rflx Micro + Cult 4 Months R30.0 - Dysuria Microalbumin, Random (w Creat) 4 Months E11.9 - Type 2 diabetes mellitus without complications Vitamin D 25-OH Total 4 Months E55.9 - Vitamin D deficiency, unspecified Medications: Changed From lisinopril 10 mg PO DAILY 90 tabs 8RF To lisinopril 10 mg PO DAILY 90 tabs 3RF 90 days From metoprolol succinate ER 12.5 mg (1/2 x 25 mg) PO DAILY 45 tabs 3RF To metoprolol succinate ER 12.5 mg (1/2 x 25 mg) PO DAILY 45 tabs 3RF 90 days Discontinued triamterene-hydrochlorothiazid 37.5-25 mg Discontinued Reason: Patient no longer taking 1 tab PO DAILY 90 tabs 1RF
[2025-01-06 11:30] VITALS: BP 144/72; PULSE 66; TEMP 36.3; O2SAT 96; BMI 36.5
== END 2025-01-06 12:12 | disposition home or self-care (01) ==
LOC: HO.HMCH 11:06
PROVIDERS: PCP Internal Medicine; Visit Provider Internal Medicine
DX: Z13.9 Encounter for screening, unspecified (principal)

== ENCOUNTER → 2025-01-06 11:05 | Outpatient (BNVA) | payer MEDICARE, SELFPAY | PROVIDERS: PCP Internal Medicine; Visit Provider Internal Medicine | DX: E11.9 Type 2 diabetes mellitus without complications (principal); D62 Acute posthemorrhagic anemia; I48.0 Paroxysmal atrial fibrillation; I10 Essential (primary) hypertension; E78.00 Pure hypercholesterolemia, unspecified; E66.9 Obesity, unspecified; Z68.36 Body mass index [BMI] 36.0-36.9, adult; Z71.89 Other specified counseling | CPT/HCPCS: 83036; 96127; 99212 ==

== ENCOUNTER 2025-01-10 06:30 | Outpatient (REF) | payer MEDICARE, SELFPAY ==
--- OUTSIDE RECORDS SUMMARY | 2023-08-26 03:30 | XMS_ITS ---
Author Organization [facility] Address [address] [place] [address] Care Team Providers Care Junior Assistant Manager Name Role Phone Alan ALCALA, Tae Primary Care Provider Keven Villatoro Jr, Sean Pritchard REASON FOR VISIT screening Encounters Encounter Location Date Provider Diagnosis [facility] Outpatient [address] [place] [phone] 08/26/2023 Sean Villatoro Jr Encounter for screening colonoscopy Z12.11 and Personal history of colonic polyps Z86.010 Assessments Encounter Date Diagnosis (ICD Code) Assessment Notes Treatment Notes Treatment Clinical Notes Section Notes 08/26/2023 Encounter for screening colonoscopy (ICD-10 - Z12.11) 08/26/2023 Personal history of colonic polyps (ICD-10 - Z86.010) Plan Of Treatment Next Appt Details Provider Name:Sean palmer Jr, 06/30/2025 01:55:00 PM, [address], [address], [place], [address], Progress Notes * FANNY TINEO CDOB: [birth year] (64 yo M)Acc No.[id number]:08/26/2023 COLON WITH MAC Patient: FANNY SLOAN Provider: Kristie Villatoro MD :1960 A ge:63 Y S ex:Male Date:08/26/2023 Address:[address] [place] [address] [facility] Pcp:Tae Phillips MD Subjective: * Chief Complaints: * 1 . Screening. * Medical History: Objective: * Vitals: Assessment: * Assessment: 1. E ncounter for screening colonoscopy - Z12.11 (Primary) 2 . P ersonal history of colonic polyps - Z86.010 Plan: * Treatment: * Procedure Codes: 4 5378 DIAGNOSTIC COLONOSCOPY * Preventive Medicine: ELVIN Screening: C olonoscopy W as interval between colonoscopies three years or more? Y es, W as last colonoscopy performed three or more years ago? Y es, T en year follow-up for colonoscopy recommended? Y es, A denoma or other neoplasm detected during screening colonoscopy: N o. * * The named appointment provid er may or may not be the originator of this progress note, and it is not deemed complete until electronically signed by the appointment provider. Sign off status: Pending * Provider: Kristie Villatoro MD Date: 0 08/26/2023 Generated for Merritt clark/Stephen/Erickitting on: 0 01/10/2025 06:33 AM EDT
[2025-01-10 06:54] LABS: MANUAL DIFF FLAG NO
[2025-01-10 07:17] LABS: Hematocrit 32.6 % (42.0-52.0); Hemoglobin 9.7 g/dl (14.0-18.0); Imm Gran Abs Auto 0.01 X10*3/uL (0.00-0.03); Imm Gran Pct Auto 0.2 % (0.0-0.4); Lymphocytes Absolute Auto 0.9 X10*3/uL (1.2-4.9); Mean Corpuscular HGB Conc 29.8 g/dl (31.0-36.0); Mean Corpuscular Hemoglobin 21.9 pg (27.0-33.0); Mean Corpuscular Volume 73.8 fL (80.0-98.0); NRBC Abs Auto 0.000 X10*3/uL (0.0-0.012); NRBC Pct Auto 0.0 /100WBC (0.0-0.2); Platelet Count 156 X10*3/uL (160-400); Red Blood Count 4.42 X10*6/uL (4.60-5.80); White Blood Count 5.3 X10*3/uL (4.8-10.8)
[2025-01-10 07:26] LABS: Hemoglobin A1C 123.8999 umol/L; Total Hemoglobin (HGBA1C) 2595.3164 umol/L
[2025-01-10 07:57] LABS: Appearance Urine Clear; Glucose Urine UA Negative (Negative); PH 5.5 (5.0-9.0); Specific Gravity - Urine 1.025 (1.005-1.025); UMIC TRIGGER UACC YES
[2025-01-10 08:06] LABS: Alanine Aminotransferase 14 U/L (0-40); Albumin Level 4.5 g/dL (3.5-5.0); Alkaline Phosphatase 82 U/L (39-117); Anion Gap 12 (12-20); Aspartate Amino Transferase 19 U/L (5-37); Blood Urea Nitrogen 18 mg/dL (9-16); Calcium 8.7 mg/dL (8.4-10.2); Carbon Dioxide 24 mmol/L (22-29); Chloride 107 mmol/L (96-108); Cholesterol 144 mg/dL (<200); Estimated Glomerular Filt Rate > 60; HDL Cholesterol 43 mg/dL (>40); Potassium 4.1 mmol/L (3.3-5.1); Sodium 139 mmol/L (135-145); Total Protein 7.3 g/dL (6.5-8.0); Triglycerides 141 mg/dL (<150)
[2025-01-10 08:15] LABS: Microalbum/Creatinine Ratio Ur 367.0 ug/mg cr (<30)
== END 2025-01-10 06:31 | disposition home or self-care (01) ==
LOC: HO.LAB 06:30
PROVIDERS: PCP Internal Medicine; Visit Provider Internal Medicine
DX: E11.9 Type 2 diabetes mellitus without complications (principal); R30.0 Dysuria; E78.00 Pure hypercholesterolemia, unspecified; E55.9 Vitamin D deficiency, unspecified; D64.9 Anemia, unspecified
CPT/HCPCS: 36415; 80053; 80061; 81001; 82043; 82306; 82570; 83036; 84443; 85025

== ENCOUNTER → 2025-01-11 10:36 | Outpatient (REF) | payer MEDICARE, SELFPAY ==
--- OUTSIDE RECORDS SUMMARY | 2023-08-26 03:30 | XMS_ITS ---
Author Organization [facility] Address [address] [place] [address] Care Team Providers Care Fish Rod Maker Name Role Phone Alan ALCALA, Merigold Primary Care Provider Keven Villatoro Jr, eSan Pritchard REASON FOR VISIT screening Encounters Encounter Location Date Provider Diagnosis [facility] Outpatient [address] [place] [phone] 08/26/2023 Sean Villatoro Jr Encounter for screening colonoscopy Z12.11 and Personal history of colonic polyps Z86.010 Assessments Encounter Date Diagnosis (ICD Code) Assessment Notes Treatment Notes Treatment Clinical Notes Section Notes 08/26/2023 Encounter for screening colonoscopy (ICD-10 - Z12.11) 08/26/2023 Personal history of colonic polyps (ICD-10 - Z86.010) Plan Of Treatment Next Appt Details Provider Name:Sean palmer Jr, 03/14/2025 01:35:00 PM, [address] [place] [address], [address] [place] [address], [phone], Provider Name:Sean palmer Jr, 06/30/2025 01:55:00 PM, [address] [place] [address], [place] [address], [place], [address], Progress Notes * FANNY TINEO CDOB: [birth year] (64 yo M)Acc No.[id number]:08/26/2023 COLON WITH MAC Patient: FANNY SLOAN Provider: Kristie Villatoro MD :1960 A ge:63 Y S ex:Male Date:08/26/2023 Address[place] Pcp:Tae Phillips MD Subjective: * Chief Complaints: [...] MD Date: 0 08/26/2023 Generated for Merritt clark/Stephen/Coleransmitting on: 0 01/11/2025 11:24 AM EDT
--- OUTSIDE RECORDS SUMMARY | 2024-12-17 08:00 | XMS_ITS ---
Author Organization [facility] Address [address] [place] [address] Care Team Providers Care Oral Surgery Assistant Name Role Phone Aaln ALCALA, Tae Primary Care Provider Sean Mcallister Jr REASON FOR VISIT anemia Encounters Encounter Location Date Provider Diagnosis [facility] Outpatient [address] [place] [id number] 12/17/2024 Sean Villatoro Jr Plan Of Treatment Next Appt Details Provider Name:Sean palmer Jr, 03/14/2025 01:35:00 PM, [address], [address], [place], [address], Provider Name:Sean palmer Jr, 06/30/2025 01:55:00 PM, [address] [place] [address], [address], [place], [address], Progress Notes * FANNY TINEO CDOB: [birth year] (64 yo M)Acc No.[id number]:12/17/2024 EGD/MAC Patient: FANNY SLOAN Provider: Kristie Villatoro MD :1960 A ge:64 Y S ex:Male Date:12/17/2024 Address:[address] [place], [place] [address] Pcp:Tae Phillips MD Subjective: * Chief Complaints: * 1 . Anemia. * Medical History: Objective: * Vitals: Assessment: Plan: * Treatment: * * The named appointment provid er may or may not be the originator of this progress note, and it is not deemed complete until electronically signed by the appointment provider. Sign off status: Pending * Provider: Kristie Villatoro MD Date: 12/17/2024 Generated for Merritt clark/Stephen/Erickitting on: 01/11/2025 11:25 AM EDT
--- NOTE | 2025-01-11 10:41 | CA_ITS ---
Transthoracic Echocardiogram Patient (Last, First, Middle): Tyler Hicks, Gender: Male Date of : 1960 Age: 64 Procedure Date: 01/11/2025 Procedure Type: Transthoracic Echocardiogram Location: OP Height: 175.26 cm Weight: 112.04 kg BSA: 2.26 m2 Heart Rate: bpm BP: 142 / 74 mmHg Plate Molder: TO Referring MD: Jasen Chen MD Symptoms: I71.20 - Thoracic aortic aneurysm, without rupture, unspecified Study Quality: Fair/Contrast ECG Rhythm: Sinus Conclusions: - The left ventricular systolic function is normal. The calculated ejection fraction is 59% by biplane method. - No obvious valvular pathology seen on this study. - There is mild dilatation of the ascending aorta measuring 4.10 cm. Findings Procedure Information Contrast agent, definity, is being given per protocol without apparent complications. Left Ventricle Normal left ventricular cavity size. There is mildly increased left ventricular wall thickness. The left ventricular systolic function is normal. The calculated ejection fraction is 59% by biplane method. There is no evidence of regional wall motion abnormalities. Diastolic function is normal for age. Right Ventricle Mildly increased right ventricular cavity size. There is normal right ventricular systolic function. Aortic Valve There is a normal trileaflet aortic valve. There is no aortic valve stenosis. There is no aortic valve regurgitation. Mitral Valve The mitral valve appears normal. There is no mitral valve regurgitation. There is no mitral valve stenosis. Pulmonic Valve The pulmonic valve is likely normal. Tricuspid Valve There is trace tricuspid valve regurgitation. There is no evidence of pulmonary hypertension. Great Vessels There is mild dilatation of the ascending aorta measuring 4.10 cm. Venous The inferior vena cava is normal in size and collapses greater than 50% with inspiration. Pericardium/Pleural There is no evidence of pericardial effusion. Prior Study Comparison No significant change compared to prior study dated: 01/03/2023. Recommendations, Care & Conclusions No obvious valvular pathology seen on this study. Measurements 2D Linear Measurements IVSd: 1.08 0.6-0.9/0.6-1.0 cm LVIDd: 5.81 3.9-5.3/4.2-5.9 cm LVIDd Index: 2.57 2.4-3.2/2.2-3.1 cm/m2 LVIDs: 4.24 2.0-3.6 cm LVPWd: 1.06 0.7-1.1 cm LA Diam: 3.90 2.7-3.8/3.0-4.0 cm LAIDs Index: 1.73 1.5-2.3 cm/m2 LV Mass: 318.59 67-162/88-224 g LV Mass Index: 140.97 43-95/49-115 g/m2 LVOT Diam: 2.30 3.0+(-)1.3 cm 2D Systolic Function EF 4C: 64.20 >55% EF 2C: 53.00 >55% EF BiP: 59.20 >55% Mitral Valve MV Pk E: 0.53 MV PK A: 0.59 MV Decel Time: 202.00 E/A: 0.90 E'Lateral: 9.25 E'Medial: 5.22 E/E' Med: 10.20 E/E' Lat: 5.70 PHT: 59.00 MVA PHT: 3.73 Decel Saline: 2.63 Aortic Valve AoV Pk Juan: 1.76 AoV Mn Juan: 1.12 AoV VTI: 0.35 AoV Pk Grad: 12.00 Aov Mn Grad: 6.00 YADIRA Cont.VTI: 3.37 LVOT LVOT Pk Juan: 1.25 LVOT Mn Juan: 0.89 LVOT VTI: 0.28 LVOT Pk Grad: 6.00 LVOT Mn Grad: 4.00 LVOT Diam: 2.30 LVOT Area: 4.15 Diastolic Function MV Pk E: 0.53 MV Pk A: 0.59 E/A: 0.90 E'Medial: 5.22 E/E' Med: 10.20 E' Laterial: 9.25 E/E' Lat: 5.70 Right Ventricle TAPSE (mm): 21.20 TVS' Juan: 14.70 Tricuspid Valve RA Press: 3.00 Great Vessels Aorta Sinus of Valsalva: 3.73 2.0-3.[address] [place]: 2.70 1.7-3.4 cm Ao Asc: 4.10 2.1-3.4 cm Ao Arch: 3.00 Updated in Other Vendor System with Status of Final Warner Purdy MD electronically signed on 01/12/2025 11:22:03 AM with status of Final
--- OUTSIDE RECORDS SUMMARY | 2025-01-11 11:25 | XMS_ITS | Patient Health Record ---
Author Organization [facility] Address [address] [place] [address] Care Team Providers Care Tax Economist Name Role Phone Alan ALCALA, [place] Primary Care Provider Sean Mcallister Jr Allergies Allergen (clinical drug ingredient) Drug/Non Drug [...] Pistachio Nut (Diagnostic) Unknown Drug Allergy Active Results Component Value Reference Range Notes Glucose, Whole Blood Reviewed date:12/17/2024 03:27:43 PM Interpretation: Performing Lab:[facility], [address] [place] [id number] Notes/Report: Glucose, Whole Blood 116 60-115 mg/dL METER # : [id number] Pathology Reviewed date:12/29/2024 08:33:19 AM Interpretation: Performing Lab:[address] [id number] Notes/Report: Reason For Referral No Information Medications Medication SIG (Take, Route, Frequency, Duration) Notes Start Date End Date Status Lisinopril 10 MG 1 tablet Orally Once a day for 30 day(s) Active Eliquis 5 MG as directed Orally o nce a day Active metFORMIN HCl 1000 MG Oral for 30 Active Metoprolol Succinate ER 25 MG Oral for 30 Active Furosemide 20 MG Oral for 28 A ctive Omeprazole 40 MG TAKE 1 CAPSULE BY [facility] EVERY DAY FOR 90 DAYS for 90 Active Flecainide Acetate 100 MG 0.5 tablet Ora lly every 12 hrs Active Multivitamin - 1 tablet Orally Once a day for 30 day(s) Active Rosuvastatin Calcium 40 MG 1 tablet Oral ly Once a day for 30 day(s) Active Immunizations Vaccine Route Administration Date Status Comme nts Influenza Unknown 02/25/2018 Administered Influenza Unknown 03/02/2024 Administered Problems Problem Type SNOMED Code ICD Code Onset Dates Problem Status W/U Status Risk Notes Problem 151806251 Colon cancer screening (Z12.11) Active confirmed Problem 440826534 Personal history of colonic polyps (Z86.010) Active confirmed Problem 14345366 Weight loss (R63.4) Active confirmed Problem 498787380 Gastroesophageal reflux disease without esophagitis (K21.9) Active confirmed Problem Anemia (430147115) Anemia (D64.9) Active confirmed Problem 274870629 Abdominal pain, generalized (R10.84) Active confirmed Problem 211105019 Elevated LFTs (R94.5) Active confirmed Problem 40597927 Loss of weight (R63.4) Active confirmed Vital Signs Temperature 97.5 degrees Fahrenheit 12/15/2024 Blood pressure diastolic 01 mm Hg 12/15/2024 Height 68.5 in 12/15/2024 Blood pressure systolic 001 mm Hg 12/15/2024 Weight 249.8 lbs 12/15/2024 BMI 37.43 kg/m2 12/15/2024 Encounters Encounter Location Date Provider Diagnosis [facility] Outpatient [address] [place] [id number] 12/17/2024 Sean Villatoro Jr [facility] [address] [place] [phone] 12/15/2024 Sean Villatoro Jr Anemia D64.9 [facility] [address] [place] [phone] 12/13/2024 Sean Villatoro Jr [facility] [address] [place] [phone] 12/29/2024 Sean Villatoro Jr Assessments Encounter Date Diagnosis (ICD Code) Assessment Notes Treatment Notes Treatment Clinical Notes Section Notes 12/15/2024 Anemia (ICD-10 - D64.9) His laboratory studies are supportive of iron deficiency anemia. We reviewed this today. He is up-to-date on colorectal cancer screening and this does not appear to be consistent with lower GI tract bleeding. With his black stools further evaluation of his upper GI tract is warranted. This will be arranged. He understands risks and benefits of endoscopy and agrees to proceed. He is off Eliquis and will stop his metformin the day before the procedure. Today's visit was 30 minutes. Plan Of Treatment Future Test Test Name Order Date COLONOSCOPY 08/04/2013 UPPER GI ENDOSCOPY 07/29/2018 COLONOSCOPY 07/29/2018 COLONOSCOPY 03/06/2023 UPPER GI ENDOSCOPY 12/15/2024 Next Appt Details Provider Name:Sean palmer Jr, 03/14/2025 01:35:00 PM, [address] [place] [address], [place] [address], [place], [phone], Provider Name:Sean palmer Jr, 06/30/2025 01:55:00 PM, [address] [place] [address], [address], [place], [address], Insurance Providers Payer Name Payer Address Payer Phone Subscriber Number Group Number Insured Name Patient Relationship to Insured Coverage Start Date Coverage End Date [facility] [address] [place], [place] [id number] FANNY TINEO Self - patient is the insured Medical (General) History Medical History History ICD Code Gastroesophageal reflux disease, EGD/, no HP or BE Colonoscopy 09/09, normal, 10-year follow -up Hyperlipidemia Atrial fibrillation Hypertension Diabetes mellitus type 2 Remote history of CVA Elevated BMI Surgical History Surgery Date(Month/Year) finger surgery
== END ==
LOC: HO.CARD 10:36
PROVIDERS: PCP Internal Medicine; Visit Provider Internal Medicine Cardiovascular Disease
DX: I71.20 Thoracic aortic aneurysm, without rupture, unspecified (principal)
CPT/HCPCS: 93306; Q9957

== ENCOUNTER → 2025-01-11 10:41 | Outpatient (BNV) | payer MEDICARE, SELFPAY | PROVIDERS: PCP Internal Medicine; Visit Provider Internal Medicine | DX: I71.20 Thoracic aortic aneurysm, without rupture, unspecified (principal) | CPT/HCPCS: 93306 ==

== ENCOUNTER 2025-03-04 09:00 | Outpatient (RCR) | payer MEDICARE, SELFPAY ==
[2025-01-14 09:03] VITALS: BP 165/62; PULSE 67; RESP 20; TEMP 36.7; O2SAT 99
[2025-01-21 09:16] VITALS: BP 167/89; PULSE 66; RESP 16; TEMP 36.6; O2SAT 99
[2025-01-28 08:50] VITALS: BP 169/93; PULSE 54; RESP 16; TEMP 36.6; O2SAT 97
[2025-02-04 08:11] VITALS: BP 157/75; PULSE 57; RESP 16; TEMP 36.7; O2SAT 95
[2025-02-04 08:40] LABS: Hematocrit 34.7 % (42.0-52.0); Hemoglobin 10.9 g/dl (14.0-18.0); Mean Corpuscular HGB Conc 31.4 g/dl (31.0-36.0); Mean Corpuscular Hemoglobin 24.2 pg (27.0-33.0); Mean Corpuscular Volume 77.1 fL (80.0-98.0); NRBC Abs Auto 0.000 X10*3/uL (0.0-0.012); NRBC Pct Auto 0.0 /100WBC (0.0-0.2); Platelet Count 157 X10*3/uL (160-400); Red Blood Count 4.50 X10*6/uL (4.60-5.80); White Blood Count 4.8 X10*3/uL (4.8-10.8)
[2025-02-04 09:08] LABS: Ferritin 70 ng/mL (20-250)
[2025-02-11 08:31] VITALS: BP 174/96; PULSE 59; RESP 16; TEMP 36.6; O2SAT 99
[2025-02-18 08:42] VITALS: BP 183/103; PULSE 49; RESP 16; TEMP 36.6; O2SAT 96
[2025-02-25 08:33] VITALS: BP 174/98; PULSE 78; RESP 18; TEMP 36.6
[2025-03-04 08:46] VITALS: BP 145/74; PULSE 59; RESP 16; TEMP 36.9; O2SAT 96
[2025-03-04 09:29] LABS: Hematocrit 40.1 % (42.0-52.0); Hemoglobin 12.8 g/dl (14.0-18.0); Mean Corpuscular HGB Conc 31.9 g/dl (31.0-36.0); Mean Corpuscular Hemoglobin 26.3 pg (27.0-33.0); Mean Corpuscular Volume 82.5 fL (80.0-98.0); NRBC Abs Auto 0.000 X10*3/uL (0.0-0.012); NRBC Pct Auto 0.0 /100WBC (0.0-0.2); Platelet Count 144 X10*3/uL (160-400); Red Blood Count 4.86 X10*6/uL (4.60-5.80); White Blood Count 5.8 X10*3/uL (4.8-10.8)
[2025-03-04 13:51] LABS: Ferritin 144 ng/mL (20-250)
== END 2025-03-04 13:44 | disposition home or self-care (01) ==
LOC: HO.INF 09:00
PROVIDERS: Visit Provider Internal Medicine Medical Oncology
DX: D61.1 Drug-induced aplastic anemia (principal)
CPT/HCPCS: 36415; 82728; 85027; 96365; J1756

== ENCOUNTER 2025-03-16 12:09 | Outpatient (REF) | payer MEDICARE, SELFPAY ==
--- OUTSIDE RECORDS SUMMARY | 2024-12-17 08:00 | XMS_ITS ---
Author Organization [facility] Address [address] [place] [address] Care Team Providers Care Puttying And Calking Supervisor Name Role Phone Alan ALCALA, Tae Primary Care Provider Keven Villatoro Jr, Sean Pritchard REASON FOR VISIT anemia Encounters Encounter Location Date Provider Diagnosis [facility] [place] [address] [place] [id number] 12/17/2024 Sean Villatoro Jr Plan Of Treatment Next Appt Details Provider Name:Sean palmer Jr, 03/15/2026 09:20:00 AM, [address], [address], [place], [address], Progress Notes * FANNY TINEO CDOB: [birth year] (65 yo M)Acc No.[id number]:12/17/2024 EGD/MAC Patient: FANNY SLOAN Provider: Kristie Villatoro MD :1960 A ge:64 Y S ex:Male Date:12/17/2024 Address:[facility] [place] Pcp:Tae Phillips MD Subjective: * Chief Complaints: [...] 12/17/2024 Generated for Merritt clark/Stephen/Hao on: 1 03:34 PM EDT
--- OUTSIDE RECORDS SUMMARY | 2025-03-14 09:35 | XMS_ITS ---
Author Organization [facility] Address [address] [place] [address] Care Team Providers Care Environmental Services Floor Tech Name Role Phone Alan ALCALA, Tae Primary Care Provider Sean Mcallister Jr Unavailable Allergies Allergen (clinical drug ingredient) [...] extract Banana (Diagnostic) Unknown Drug Allergy Active Results Component Value Reference Range Notes GI PANEL (Not yet reviewed b y provider) Interpretation: Performing Lab:[facility], [address] [place] [phone] Notes/Report: Campylobacter Not Detected Not Detect. Plesiomonas shigelloides Not Detected Not Detect. Salmonella Not Detected Not Detect. Vibrio Not Detected Not Detect. Vibrio Cholerae Not Detected Not Detect. Yersinia enterocolitica Not Detected Not Detect. E. coli EAEC Not Detected Not Detect. E. coli EPEC Not Detected Not Detect. E. coli ETEC Not Detected Not Detect. E. coli STEC Not Detected Not Detect. E. coli O157 Not applicable Not Detect. E. coli containing the O157 antigen are a subset of Shiga-like toxin-producing E. coli (STEC). Shigella sp./EIEC Not Detected Not Detect. Cryptosporidium Not Detected Not Detect. Cyclospora cayetanensis Not Detected Not Detect. Entamoeba histolytica Not Detected Not Detect. Giardia lamblia Not Detected Not Detect. Adenovirus F 40/41 Not Detected Not Detect. Astrovirus Not Detected Not Detect. Norovirus GI/GII Not Detected Not Detect. Rotavirus A Not Detected Not Detect. Sapovirus Not Detected Not Detect. All results must be correlated with clinical findings. Negative results do not exclude the possibility of gastrointestinal infection and should not be used as the sole basis for diagnosis, treatment, or other management decisions. Virus, bacteria, and parasite nucleic acid may persist in vivo independently of organism viability. Additionally, some organisms may be carried asymptomatically. Detection of organism targets does not imply that the corresponding organisms are infectious or are the causative agents for clinical symptoms. There is a risk of false negative values due to the presence of sequence variants in the gene targets of the assay, amplification inhibitors in specimens, or inadequate numbers of organisms for amplification. The identification of several diarrheagenic E. coli pathotypes has historically relied upon phenotypic characteristics. This panel targets genetic determinants characteristic of most pathogenic strains, but may not detect all strains having phenotypic characteristics of a pathotype. The performance of this test has not been established for monitoring treatment of infection with any of the panel organisms. This assay is performed by Multiplexed PCR, utilizing the Anda Array. REASON FOR VISIT Patient presents today for anemia Medications Medication SIG (Take, Route, Frequency, Duration) Notes Start Date End Date Status metFORMIN HCl 1000 MG Oral; Duration: 30 Active Eliquis 5 MG as directed Orally o nce a day Active Metoprolol Succinate ER 25 MG Oral; Duration: 30 Active Omeprazole 40 MG TAKE 1 CAPSULE BY [facility] EVERY DAY FOR 90 DAYS; Duration: 90 Active Furosemide 20 MG Oral; Duration: 28 Active Multivitamin - 1 tablet Orally Once a day; Duration: 30 day(s) Active Flecainide Acetate 100 MG 0.5 tablet Ora lly every 12 hrs Active Lisinopril 10 MG 1 tablet Orally Once a day; Duration: 30 day(s) Active Rosuvastatin Calcium 40 MG 1 tablet Oral ly Once a day; Duration: 30 day(s) Active Vital Signs Temperature 98.4 degrees Fahrenheit 03/14/20 25 Blood pressure systolic 001 mm Hg 03/14/20 25 Blood pressure diastolic 01 mm Hg 025 Height 68.5 in 03/14/2025 Weight 245.2 lbs 03/14/2025 BMI 36.74 kg/m2 03/14/2025 Encounters Encounter Location Date Provider Diagnosis [facility] [address] [place] [address] 03/14/2025 Sean Villatoro Jr Diarrhea R19.7 Assessments Encounter Date Diagnosis (ICD Code) Assessment Notes Treatment Notes Treatment Clinical Notes Section Notes 03/14/2025 Diarrhea (ICD-10 - R19.7) We discussed gastroesophageal reflux disease today. We discussed diet, lifestyle modifications, and weight management. He has done well since his endoscopy. We reviewed the pathology on his polyps today. We have recommended follow-up evaluation of his diarrhea with stool testing. He will see us in follow-up in 1 year, sooner if necessary. Plan Of Treatment Pending Test Test Name Order Date STOOL WBC 03/14/2025 OVA & PARASITES (O&P) 03/14/2025 GI PANEL 03/14/2025 Next Appt Details Follow Up: 1 Year, Reason: Provider Name:Sean palmer Jr, 03/15/2026 09:20:00 AM, [address], [address], [place], [address], Progress Notes * FANNY TINEO CDOB: [birth year] (65 yo M)Acc No.[id number]:03/14/2025 Progress Notes Patient: Kristie LAUZaidaCARROLLJOHNNY Provider: Kristie Villatoro MD :1960 A ge:65 Y S ex:Male Date:03/14/2025 Address:[address] [place] [address] Pcp:Tae Phillips MD Subjective: * Chief Complaints: * 1 . Patient presents today for anemia. * HPI: N ew symptom(s): The patient is a pleasant 65-year-old man seen today in follow-up of iron deficiency anemia and gastric polyps as well as colon cancer screening. He also has a new problem, diarrhea. Since we saw him last he underwent upper endoscopy in December 2024 with removal of 2 hyperplastic polyps 1 of which was quite ulcerated and may have been some of the cause of his iron deficiency anemia. We reviewed this today. He has done well since that time. His most recent hematocrit was 40.1 in February with iron studies showing a saturation of 20%. He continues to follow-up with hematology. He reports diarrheal symptoms over the past several months with intermittent loose stools, usually in the morning, not exacerbated by any foods or activities. He denies any recent travel, ill contacts, or suspect food ingestions. * Medical History: G astroesophageal reflux disease, EG, no HP or BE, Colonoscopy 09/09, normal, 10-year follow-up, Hyperlipidemia, Atrial fibrillation , Hypertension, Diabetes mellitus type 2, Remote history of CVA, Elevated BMI. * Surgical History: f hayder surgery . * Family History: F ather: alive 89 yrs. M other: , diagnosed with Heart disease. no colon or liver ca family hx. * Social History: T obacco Use: T obacco Use/Smoking A re you a: nonsmoker. D rugs/Alcohol: A lcohol Screen P oints: 0, Interpretation: Negative. M iscellaneous: M arital status: . 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 * Medications: T aking Flecainide Acetate 100 MG Tablet 0.5 tablet Orally every 12 hrs , Taking Multivitamin - Tablet 1 tablet Orally Once a day , Taking Rosuvastatin Calcium 40 MG Tablet 1 tablet Orally Once a day , Taking Lisinopril 10 MG Tablet 1 tablet Orally Once a day , Taking Eliquis 5 MG Tablet as directed Orally once a day , Taking metFORMIN HCl 1000 MG Tablet Oral , Taking Metoprolol Succinate ER 25 MG Tablet Extended Release 24 Hour Oral , Taking Furosemide 20 MG Tablet Oral , Taking Omeprazole 40 MG Capsule Delayed Release TAKE 1 CAPSULE BY MOUTH EVERY DAY FOR 90 DAYS , Medication List reviewed and reconciled with the patient * Allergies: L atex, enviromental, some fruits, Banana (Diagnostic), Kiwi, Pistachio Nut (Diagnostic), avacado. Objective: * Vitals: W t:245.2lbs, Ht: 68.5 in, BMI:36.74Index, BP:001/01mm Hg, Temp:98.4, Wt-k.22. * Examination: G eneral Examination: O n examination today, he appears well. Skin is anicteric. Lungs are clear. Heart shows a regular rate and rhythm. Abdomen is soft without focal masses or tenderness. Extremities are without edema. Assessment: * Assessment: 1. D iarrhea - R19.7 (Primary) We discussed gastroesophagea l reflux disease today. We discussed diet, lifestyle modifications, and weight management. He has done well since his endoscopy. We reviewed the pathology on his polyps today. We have recommended follow-up evaluation of his diarrhea with stool testing. He will see us in follow-up in 1 year, sooner if necessary. Plan: * Treatment: * Procedure Codes: 3 017F COLORECTAL CA SCREEN DOC REV, 1036F TOBACCO NON-USER, G8785 BP SCR NOT PRFRM REC REASON NOS * Preventive Medicine: Counseling: C are goal follow-up plan: A catia Normal BMI Follow-up D ietary management education, guidance, and counseling, B VA management provided Y es. Screenings: F all Risk Screening F all Risk Assessment: N o falls in the past year, S creening: N o falls in the past year, P jaylin of Care: N ot documented, no reason specified. * Follow Up: 1 Year * * Sign off status: Completed true * Provider: Kristie Villatoro MD Date: Generated for Merritt clark/Stephen/eTransmitting on: 03:34 PM EDT History and Physical Notes * HPI (History of Present Illness) Category Sub-Category Detail Notes Category Not es New symptom(s) The patient is a pleasant 65-year-old man seen today in follow-up of iron deficiency anemia and gastric polyps as well as colon cancer screening. He also has a new problem, diarrhea. Since we saw him last he underwent upper endoscopy in December 2024 with removal of 2 hyperplastic polyps 1 of which was quite ulcerated and may have been some of the cause of his iron deficiency anemia. We reviewed this today. He has done well since that time. His most recent hematocrit was 40.1 in February with iron studies showing a saturation of 20%. He continues to follow-up with hematology. He reports diarrheal symptoms over the past several months with intermittent loose stools, usually in the morning, not exacerbated by any foods or activities. He denies any recent travel, ill contacts, or suspect food ingestions. Examination Category Sub-Category Detail Notes Category Not es General Examination On exami nation today, he appears well. Skin is anicteric. Lungs are clear. Heart shows a regular rate and rhythm. Abdomen is soft without focal masses or tenderness. Extremities are without edema.
[2025-03-16 13:34] LABS: Leukocytes Stool Qualitative NEGATIVE (NEGATIVE)
[2025-03-16 15:21] LABS: E. coli EAEC Not Detected (Not Detect.); E. coli EPEC Not Detected (Not Detect.); E. coli ETEC Not Detected (Not Detect.); E. coli STEC Not Detected (Not Detect.); Shigella sp./EIEC Not Detected (Not Detect.)
--- OUTSIDE RECORDS SUMMARY | 2025-03-16 15:35 | XMS_ITS | Patient Health Record ---
Author Organization [facility] Address [address] [place] [address] Care Team Providers Care Network Firewall Engineer Name Role Phone Alan ALCALA, [place] Primary Care Provider Sean Mcallister Jr Unavailable [...] yet reviewed b y provider) Interpretation: Performing Lab:, [address] [place] [phone] Notes/Report: Campylobacter Not Detected Not Detect. Plesiomonas [...] is performed by Multiplexed PCR, utilizing the Vaultive Array. Glucose, Whole Blood Reviewed date:12/17/2024 03:27:43 PM Interpretation: Performing Lab:[address] [phone] Notes/Report: Glucose, Whole Blood 116 60-115 mg/dL METER # : [id number] Pathology Reviewed date:12/29/2024 08:33:19 AM Interpretation: Performing Lab:[address] [phone] Notes/Report: Leukocytes Stool Qualitative Reviewed date:03/16/2025 03:31:39 PM Interpretation: Performing Lab:[address] [phone] Notes/Report: Leukocytes Stool Qualitative NEGATIVE NEGATIVE Reason For Referral No Information Medications Medication SIG (Take, Route, Frequency, Duration) Notes Start Date End Date Status metFORMIN HCl 1000 MG Oral; Duration: 30 Active Eliquis 5 MG as directed Orally o nce a day Active Metoprolol Succinate ER 25 MG Oral; Duration: 30 Active Omeprazole 40 MG TAKE 1 CAPSULE BY [facility] EVERY DAY FOR 90 DAYS; Duration: 90 [...] Once a day; Duration: 30 day(s) Active Immunizations Vaccine Route Administration Date Status Comme nts Influenza Unknown 02/25/2018 Administered Influenza Unknown 03/02/2024 Administered Influenza Unknown 03/10/2025 Administered Problems Problem Type SNOMED Code ICD Code Onset Dates Problem Status W/U Status Risk Notes Problem Colon cancer screening (951664174) Colon cancer screening (Z12.11) Active confirmed Problem History of polyp of colon (situation) (006406322) Personal history of colonic polyps (Z86.010) Active confirmed Problem Weight loss (632260452) Weight loss (R63.4) Active confirmed Problem Gastroesophageal reflux disease without esophagitis (100240564) Gastroesophageal reflux disease without esophagitis (K21.9) Active confirmed Problem Anemia (780197585) Anemia (D64.9) Active confir med Problem Generalized abdominal pain (689155844) Abdominal pain, generalized (R10.84) Active confirmed Problem Elevated liver enzymes level (832646022) Elevated LFTs (R94.5) Active confirmed Problem Weight decreased (482701075) Loss of weight (R63.4) Active confirmed Vital Signs Temperature 98.4 degrees Fahrenheit 03/14/2025 Blood pressure diastolic 01 mm Hg 03/14/2025 Height 68.5 in 03/14/2025 Blood pressure systolic 001 mm Hg 03/14/2025 Weight 245.2 lbs 03/14/2025 BMI 36.74 kg/m2 03/14/2025 Encounters Encounter Location Date Provider Diagnosis [facility] [place] [address] [place] [phone] 12/17/2024 Sean Villatoro Jr [facility] [address] [place] [phone] 12/15/2024 Sean Villatoro Jr Anemia D64.9 [facility] [address] [place] [phone] 03/14/2025 Sean Del Rosariomarilee Charles Diarrhea R19.7 [facility] [address] [facility] [address] [place] [phone] 12/13/2024 Sean Irving Charles [facility] [address] [address] 12/29/2024 Sean Villatoro Jr Assessments Encounter Date [...] the procedure. Today's visit was 30 minutes. 03/14/2025 Diarrhea (ICD-10 - R19.7) We discussed [...] & PARASITES (O&P) 03/14/2025 GI PANEL 03/14/2025 Future Test Test Name Order Date COLONOSCOPY 08/04/2013 UPPER GI ENDOSCOPY 07/29/2018 COLONOSCOPY 07/29/2018 COLONOSCOPY 03/06/2023 UPPER GI ENDOSCOPY 12/15/2024 Next Appt Details Provider Name:Seansunita palmer Jr, 03/15/2026 09:20:00 AM, [address] [facility], [place] [address], [place], [address], Insurance Providers Payer Name Payer Address Payer Phone Subscriber Number Group Number Insured Name Patient Relationship to Insured Coverage Start Date Coverage End Date [facility] [address] [place], [place] [id number] FANNY TINEO Self - patient is the insured Medical (General) History Medical History History ICD Code Gastroesophageal reflux disease, EG/, no HP or BE Colonoscopy 09/09, normal, 10-year follow -up Hyperlipidemia Atrial fibrillation Hypertension Diabetes mellitus type 2 Remote history of CVA Elevated BMI Surgical History Surgery Date(Month/Year) finger surgery
== END 2025-03-16 12:10 | disposition home or self-care (01) ==
LOC: HO.LNP 12:09
PROVIDERS: Visit Provider Internal Medicine Gastroenterology
DX: R19.7 Diarrhea, unspecified (principal)
CPT/HCPCS: 87177; 87209; 87507; 89055

== ENCOUNTER → 2025-04-15 08:29 | Outpatient (BNV) | payer MEDICARE, MEDICAID, SELFPAY | PROVIDERS: PCP Internal Medicine; Visit Provider Radiology Body Imaging | DX: N28.1 Cyst of kidney, acquired (principal); R16.2 Hepatomegaly with splenomegaly, not elsewhere classified | CPT/HCPCS: 74183 ==

== ENCOUNTER 2025-04-15 08:34 | Outpatient (REF) | payer MEDICARE, MEDICAID, SELFPAY ==
--- OUTSIDE RECORDS SUMMARY | 2024-12-17 07:00 | XMS_ITS ---
Author Organization [facility] Address [address] [place] [address] Care Team Providers Care Cryptologic Technician Technical Name Role Phone Alan ALCALA, Tae Primary Care Provider Keven Villatoro Jr, Sean Pritchard [phone] REASON FOR VISIT anemia Encounters Encounter Location Date Provider Diagnosis [facility] Out[place] [address] [place], [place] [phone] 12/17/2024 Sean Villatoro Jr Plan Of Treatment Next Appt Details Provider Name:Sean palmer Jr, 03/15/2026 09:20:00 AM, [address], [address], [place], [address], Progress Notes * FANNY TINEO CDOB: [birth year] (65 yo M)Acc No.[id number]:12/17/2024 EGD/MAC Patient: FANNY SLOAN Provider: Kristie Villatoro MD :1960 A ge:64 Y S ex:Male Date:12/17/2024 Address[place] Pcp:Tae Phillips MD Subjective: * Chief Complaints: * A nemia * The named appointment provid er may or may not be the originator of this progress note, and it is not deemed complete until electronically signed by the appointment provider. Sign off status: Pending * Provider: Kristie Villatoro MD Date: 0 12/17/2024 Generated for Merritt clark/Stephen/Hao on: 1 06/15/2024 08:41 AM EST
--- NOTE | ~2025-04-15 | MR_ITS ---
EXAMINATION: MR ABDOMEN WITHOUT THEN WITH IV CONTRAST CLINICAL INFORMATION: F/u L renal cyst,hepatosplenomegaly 6 month f/u on Left renal cyst, mild prominent periaortic/retroperitoneal lymph nodes, mild hepatosplenomegaly COMPARISON: Abdomen MRI October 05, 2024. Abdomen/pelvis CT on June 22, 2024. Abdomen/pelvis CT on August 12, 2018. TECHNIQUE: MR abdomen was performed without and with use of 10 ml intravenous gadolinium contrast Gadavist. Postcontrast images are performed in multiphase dynamic sequences. Imaging was performed in 3 planes. FINDINGS: LOWER CHEST: No lung consolidation. No pleural effusions. LIVER: Mild hepatomegaly measuring 17.0 cm (prior remeasurement of 16.6 cm). Tiny 0.2 cm T2 hyperintense cyst along the anterior margin of segment III (5:27/46). No enhancing hepatic lesions. GALLBLADDER/BILIARY TREE: Normal appearance of the gallbladder. No biliary ductal dilatation. PANCREAS: Similar 0.5 cm nonenhancing T2 hyperintense cyst in the pancreatic head (5:73/46). No ductal dilatation. SPLEEN: Mild splenomegaly measuring 13.1 cm. No focal lesions. ADRENAL GLANDS: No nodules. KIDNEYS AND URETERS: Right: No focal lesions. No hydronephrosis. Left: Exophytic midpole lesion measures 1.8 x 1.7 x 1.3 cm (prior re-measurements of 2.0 x 1.4 x 1.4 cm in September 2024), showing heterogeneous T2 hyperintense signal on T2 haste, T2 hypointense on the T2 haste fat sat, drop in signal on the out of-phase compared to the in-phase sequence and possible enhancement of the wall and suggestion of septations following administration of intravenous contrast (18:62/84, 17:34/84). Focal cortical defect in the lower pole is unchanged. No hydronephrosis. GASTROINTESTINAL TRACT: No bowel distention. PERITONEUM/RETROPERITONEUM: No free fluid. ABDOMINAL WALL: Unremarkable. LYMPH NODES: No lymphadenopathy based on size criteria. VASCULAR: Portal vein is patent. No abdominal aortic aneurysm. OSSEOUS STRUCTURES: Unremarkable. MR/MR abdomen wo/w con IMPRESSION: 1. Exophytic left mid pole renal lesion, unchanged in size from September 2024. Signal intensity compatible with fat-containing lesion, which favors benign angiomyolipoma. 2. Unchanged mild hepatosplenomegaly. 3. No lymphadenopathy. Electronically signed by: Sanjiv Abraham MD 04/15/2025 10:51 AM [facility]
--- OUTSIDE RECORDS SUMMARY | 2025-04-15 08:42 | XMS_ITS | Patient Health Record ---
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 Name Role Phone Alan ALCALA, [place] Primary Care Provider Sean Mcallister Jr Unavailable [phone] Allergies Allergen (clinical drug ingredient) Drug/Non Drug Allergy documented on EMR Reaction Allergy Type Onset Date Status avocado allergenic extract avacado (uncoded) Unknown Allergy Active enviromental (uncoded) Unknown Allergy Active Latex Latex (uncoded) Unknown Allergy Acti ve some fruits (uncoded) Unknown Allergy Active banana allergenic extract Banana (Diagnostic) Unknown Drug Allergy Active pistachio nut allergenic extract Pistachio Nut (Diagnostic) Unknown Drug Allergy Active Kiwi Unknown Allergy Active Results Component Value Reference Range Flag Notes GI PANEL Reviewed date:03/16/2025 03:35:58 PM Interpretation: Performing Lab:[facility], [address] [place] [phone] Notes/Report: Campylobacter Not Detected Not Detect. Plesiomonas [...] is performed by Multiplexed PCR, utilizing the Vitrue Array. Glucose, Whole Blood Reviewed date:12/17/2024 03:27:43 PM Interpretation: Performing Lab:[address] [address] Notes/Report: Glucose, Whole Blood 116 60-115 mg/dL [facility] #: [id number] Pathology Reviewed date:12/29/2024 08:33:19 AM Interpretation: Performing Lab:[address] [phone] Notes/Report: Leukocytes Stool Qualitative Reviewed date:03/16/2025 03:31:39 PM Interpretation: Performing Lab:[address] [phone] Notes/Report: Leukocytes Stool Qualitative NEGATIVE NEGATIVE Ova and Parasite Reviewed date:04/05/2025 02:54:10 PM Interpretation: Performing Lab:[address] [phone] Notes/Report: Ova and Parasite SEE NOTE OVA AND PARASITES, CONC AND PERM SMEAR Micro Number: [id number] Test Status: Final Specimen Source: Stool Specimen Quality: Adequate CONCENTRATION 1: No ova or parasites seen TRICHROME 1: No ova or parasites seen Routine Ova and Parasite exam may not detect some parasites that occasionally cause diarrheal illness. Cryptosporidium Antigen and/or Cyclospora and Isospora Exam may be ordered to detect these parasites. One negative sample does not necessarily rule out the presence of a parasitic infection. For additional information, please refer to [email or web address] 3 (This link is being provided for informational/ educational purposes only.) THIS TEST WAS PERFORMED AT: [facility] [address] [address] BEN BERGER MD Reason For Referral No Information Medications Medication SIG (Take, Route, Frequency, Duration) Notes Start Date End Date Status metFORMIN HCl 1000 MG Tablet Oral; Duration: 30 Active Eliquis 5 MG Tablet as directed Orally o nce a day Active Metoprolol Succinate ER 25 MG Tablet Extended Release 24 Hour Oral; Duration: 30 Active Omeprazole 40 MG Capsule Delayed Release TAKE 1 CAPSULE BY MOUTH EVERY DAY FOR 90 DAYS; Duration: 90 Active Furosemide 20 MG Tablet Oral; Duration: 28 Active Multivitamin - Tablet 1 tablet Orally On ce a day; Duration: 30 day(s) Active Flecainide Acetate 100 MG Tablet 0.5 tablet Orally every 12 hrs Active Lisinopril 10 MG Tablet 1 tablet Orally Once a day; Duration: 30 day(s) Active Rosuvastatin Calcium 40 MG Tablet 1 tablet Orally Once a day; Duration: 30 day(s) Active Immunizations Vaccine Route Administration Date Status Comme nts Influenza Unknown 02/25/2018 Administered Influenza Unknown 03/02/2024 Administered Influenza Unknown 03/10/2025 Administered Social History Social History Additional Details Category Social Info Options Details Miscellaneous: Marital status: 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 Problems Problem Type SNOMED Code ICD Code Onset Dates Problem Status W/U Status Risk Notes Problem Colon cancer screening (437429690) Colon cancer screening (Z12.11) Active confirmed Problem History of polyp of colon (situation) (113988766) Personal history of colonic polyps (Z86.010) Active confirmed Problem Weight loss (386106292) Weight loss (R63.4) Active confirmed Problem Gastroesophageal reflux disease without esophagitis (961984996) Gastroesophageal reflux disease without esophagitis (K21.9) Active confirmed Problem Anemia (505837092) Anemia (D64.9) Active confir med Problem Generalized abdominal pain (911477035) Abdominal pain, generalized (R10.84) Active confirmed Problem Elevated liver enzymes level (054723710) Elevated LFTs (R94.5) Active confirmed Problem Weight decreased (211159758) Loss of weight (R63.4) Active confirmed Vital Signs Temperature 98.4 degrees Fahrenheit 03/14/2025 Blood pressure diastolic 01 mm Hg 03/14/2025 Height 68.5 in 03/14/2025 Blood pressure systolic 001 mm Hg 03/14/2025 Weight 245.2 lbs 03/14/2025 BMI 36.74 kg/m2 03/14/2025 Encounters Encounter Location Date Provider Diagnosis [facility] [place] [address] [place] [phone] 12/17/2024 Sean Villatoro Jr [facility] [address] [place] [phone] 12/15/2024 Sean Villatoro Jr Anemia D64.9 [facility] [address] [place] [phone] 03/14/2025 Sean Villatoro Jr Diarrhea R19.7 [facility] [address] [place] [phone] 12/13/2024 Sean Villatoro Jr [facility] [address] [place] [phone] 12/29/2024 Sean Villatoro Jr [facility] [address] [place] [phone] 04/04/2025 Sean Villatoro Jr Assessments Encounter Date Diagnosis [...] WBC 03/14/2025 OVA & PARASITES (O&P) 03/14/2025 Future Test Test Name Order Date COLONOSCOPY 08/04/2013 UPPER GI ENDOSCOPY 07/29/2018 COLONOSCOPY 07/29/2018 COLONOSCOPY 03/06/2023 UPPER GI ENDOSCOPY 12/15/2024 Next Appt Details Provider Name:Sean palmer , 03/15/2026 09:20:00 AM, [address] [place] [address], [address], [place], [address], Insurance Providers Payer Name Payer Address Payer Phone Subscriber Number Group Number Insured Name Patient Relationship to Insured Coverage Start Date Coverage End Date [facility] [address] [place], [place] [id number] FANNY ITNEO Self - patient is the insured Medical (General) History Medical History History ICD Code Gastroesophageal reflux disease, EGD/19, no HP or BE Colonoscopy 09/09, normal, 10-year follow -up Hyperlipidemia Atrial fibrillation Hypertension Diabetes mellitus type 2 Remote history of CVA Elevated BMI Surgical History Surgery Date(Month/Year) finger surgery
== END 2025-04-15 08:35 | disposition home or self-care (01) ==
LOC: HO.MRI 08:34
PROVIDERS: PCP Internal Medicine; Visit Provider Nurse Practitioner Family
DX: N28.1 Cyst of kidney, acquired (principal); R59.0 Localized enlarged lymph nodes; R16.2 Hepatomegaly with splenomegaly, not elsewhere classified
CPT/HCPCS: 74183; A9585

== ENCOUNTER 2025-04-22 09:49 | Outpatient (AMB) | payer MEDICARE, SELFPAY ==
[2025-04-22 09:57] VITALS: BP 150/80; PULSE 58; O2SAT 97; BMI 35.8
--- NOTE | 2025-04-22 09:57 | A.OFFPC_ITS ---
Vital Signs 04/22/25 09:57 Height 5 ft 9 in Weight 242 lb 8 oz BMI 35.8 BP 150/80 H Blood Pressure Location Lt brachial Position Sitting Pulse 58 Pulse Source Pulse Oximeter Pulse Oximetry (%) 97 Oxygen Delivery Method Room Air Intake Visit Reasons: anemia/GI bleed, DM, HTN, hyperlipidemia Publication Distributor Required: No Accompanied by: Self / Same As Patient Allergies kiwi (KIWI) Allergy (Intermediate, Verified 04/22/25 10:34) RASH latex (Latex) Allergy (Intermediate, Verified 04/22/25 10:34) RASH Pistacia Vera (Pistachio) (PISTACIA VERA (PISTACHIO)) Allergy (Intermediate, Verified 04/22/25 10:34) RASH avocado (Avocado) Allergy (Unknown, Verified 04/22/25 10:34) UNKNOWN banana (Banana) Allergy (Unknown, Verified 04/22/25 10:34) UNKNOWN prednisone Adverse Reaction (Severe, Verified 04/22/25 10:34) Unknown Environmental Allergy (Mild, Uncoded 04/22/25 10:34) RUNNY NOSE Medication List - Last Reconciled 04/22/25 by Tae Phillips MD acetaminophen ER (Tylenol 8 Hour) 1,300 mg (2 x 650 mg) PO Q12H apixaban 5 mg PO BID blood-glucose sensor (Dexcom G7 Sensor device) As directed blood-glucose,airport manager,cont (Dexcom G7 Wire Wrapper Machine Operator) As directed cyanocobalamin (vitamin B-12) 1,000 mcg sublingual DAILY flecainide 100 mg PO Q12H folic acid 1 mg PO DAILY furosemide 20 mg PO 3XW lisinopril 10 mg PO DAILY 90 days metformin 1,000 mg PO DAILY metoprolol succinate ER 12.5 mg (1/2 x 25 mg) PO DAILY 90 days multivitamin 1 tab PO DAILY omeprazole 40 mg PO DAILY rosuvastatin 40 mg PO DAILY Tobacco use date assessed: 04/22/25 Last assessed Fall Risk: 04/22/25 Dental Screening Dental Screen Date: 04/22/25 HPI anemia/GI bleed, DM, HTN, hyperlipidemia HPI Details Patient comes in today for his follow up visit States that he currently feels okay and just got back about a week ago from visiting his greiwc-jq-yym in [place] States that his hzkhdn-wz-rog has been dealing with some significant health issues and is currently not doing too well Patient denies any headaches or dizziness Denies any chest pains, no increased SOB No nausea/vomiting, no abdominal pain but notes (+) on and off sharp pains over his right side for the past couple of weeks - pain is mostly over the right side of the lower torso just above the right iliac crest Notes that the pain feels worse when he lies down on his right side or when he turns his body to either side No change in bowel habits noted and he denies any acute urinary symptoms although he has noticed a strong smell to his urine lately - he is advised that his urine will be checked as well when he gets his previously ordered labs done Since his last blood transfusion in November 2024, he has received a total of 8 doses of IV Venofer so far, with his last dose on 03/04/2025 He was also seen by Dr. Villatoro recently for GI follow up and advised that he is doing well and will just need to follow back up with GI in 1 year He had his colonoscopy done last year in August 2023 and colonoscopy came out normal and recommended to have repeat colonoscopy in 10 years (2033) EGD done back in early December 2024 revealed (+) reactive gastropathy with patchy mild chronic inflammation; H pylori was negative and polyps removed were hyperplastic Patient states that he's had no acute GI issues since He was not able to get his follow up labs done prior to his appointment today - states that he forgot to do so and will go and get them done tomorrow morning [facility] Medical History Obesity (BMI 30-39.9) Diabetes mellitus Pure hypercholesterolemia Essential hypertension Low back pain Cervicalgia CVA (cerebral vascular accident) Hyperlipidemia GERD (gastroesophageal reflux disease) Diabetes Mass of left elbow Nocturnal hypoxemia INGA (obstructive sleep apnea) Varicose veins of both lower extremities Obesity HTN (hypertension) Paroxysmal atrial fibrillation Surgical History Hx of colonoscopy History of hand surgery Hx of endoscopy Family History Father No problems noted. Mother No problems noted. 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 1. Little interest or pleasure in doing things: not at all 2. Feeling down, depressed, or hopeless: not at all 3. Trouble falling or staying asleep, or sleeping too much: not at all 4. Feeling tired or having little energy: not at all 5. Poor appetite or overeating: not at all 6. Feeling bad about yourself - or that you are a failure or have let yourself or your family down: not at all 7. Trouble concentrating on things, such as reading the newspaper or watching television: not at all 8. Moving or speaking so slowly that other people could have noticed. Or the opposite - being so fidgety or restless that you have been moving around a lot more than usual: not at all 9. Thoughts that you would be better off or of hurting yourself in some way: not at all Total score: 0 Depression Screening Interpretation: Negative Depression Screening Done: Yes 96179 - PHQ-9 Billing: Yes Source: Developed by Drs. Roddy Martinez, Lizbet Shell, Justin Tai and colleagues, with an educational raghavendra from [employer]. Thrive Questionnaire Date Thrive assessed: 04/22/25 I am a: Patient What is your living situation today?: I have a steady place to live Within the past 12 months, did the food you bought not last and you didn't have the money to get more?: Never true Within the past 12 months, did you worry whether your food would run out before you got money to buy more?: Never true Do you have trouble paying for medicines?: No Do you have trouble getting transportation to medical appointments?: No Do you have trouble paying your heating and electricity bill?: No Do you have trouble taking care of your child, family member or friend?: No Do you have trouble with day-to-day activities such as bathing, preparing meals, shopping, managing finances, etc.?: No Are you currently unemployed and looking for a job?: No Are you interested in more education?: No Please select the resources that you would like help with: None Currently or been in a relationship where the following occur: I choose not to answer THRIVE Score: 0 AUDIT C Alcohol Use Questionnaire (AUDIT-C) 1. How often do you have a drink containing alcohol?: Never 3. How often do you have six or more drinks on one occasion?: Never Total Score: 0 Score Reviewed/Action Taken: Yes LUIS-7 AMB Questionnaire LUIS-7 Date LUIS - 7 assessed: 04/22/25 Feeling nervous, anxious, or on edge: 0 = Not at all Not being able to stop or control worryin = Not at all Worrying too much about different things: 0 = Not at all Trouble relaxin = Not at all Being so restless that it is hard to sit still: 0 = Not at all Becoming easily annoyed or irritable: 0 = Not at all Feeling afraid as if something awful might happen: 0 = Not at all Total LUIS-7 score (0-4 normal; 5-9 mild; 10-14 moderate; 15-21 severe): 0 Source: Developed by Drs. Roddy Martinez, Lizbet Shell, Justin Tai and colleagues, with an educational raghavendra from [employer]. Review of Systems Const Denies chills, Reports fatigue, Denies fever(s) and Denies headache(s) ENT Denies dysphagia, Denies dizziness, Denies otalgia, Denies headache(s), Denies neck pain, Denies odynophagia and Denies sore throat Card Denies chest pain, Denies rapid heart rate, Denies palpitations and Denies dyspnea Resp Denies chest congestion, Denies cough and Denies dyspnea GI Denies abdominal pain (but (+) recurrent sharp pains over the right side of the torso - see HPI), Denies constipation, Denies dysphagia, Denies heartburn, Denies diarrhea, Denies nausea, Denies odynophagia and Denies vomiting Denies difficulty urinating, Denies dysuria, Denies nocturia and Denies urinary frequency Musc Denies back pain, Denies arthralgias and Denies neck pain Skin/Breast Denies rash Neuro Denies dizziness, Denies headache(s) and Denies paresthesias Endo Reports fatigue and Denies palpitations Physical exam (Primary Care) Vital Signs: Last Vital Signs Pulse 58 04/22/25 09:57 BP 150/80 H 04/22/25 09:57 Pulse Ox 97 04/22/25 09:57 Oxygen Delivery Method Room Air 04/22/25 09:57 BMI result Body Mass Index 35.8 Tobacco/Smoking Status: Tobacco use Status Tobacco use date assessed 04/22/25 04/22/25 10:01 Patient Tobacco Use Status Never used Tobacco 04/22/25 10:01 e-Cigarette/Vaping Use Never Used 04/22/25 10:01 PHQ-9: PHQ-9 Score PHQ-9: Total score 0 04/22/25 10:13 Depression Screening Interpretation: Negative Thrive Assessment: Date of Thrive Assessment Date Thrive assessed 04/22/25 04/22/25 10:01 Currently or been in a relationship where the following occur: I choose not to answer Const General: no acute distress and alert HENMT Ears: TM's normal bilaterally and EAC's normal Throat: Yes posterior oropharynx normal and Yes tonsils normal (no TP congestion) Neck Neck: Yes supple and No lymphadenopathy Thyroid: Thyroid normal Resp Auscultation: clear to auscultation bilaterally, no rales and no wheezes Cardio Rate: regular rate Rhythm: regular rhythm Heart sounds: no murmurs GI Other: (+) tenderness on deep palpation over the lower right side of the torso at the lateral axillary line just above the right iliac crest - tenderness is reproducible on deep palpation and when patient is asked to turn his torso to the right or left side Palpation (GI): Soft to palpation and nontender Auscultation: normal bowel sounds General: Yes no CVA tenderness Back/Spine/Pelvis Back: no CVA tenderness Thoracic/Lumbar Spine: No lumbar spinal tenderness Skin Rashes: no rashes Extrem General: Yes no clubbing, cyanosis or edema Results AMB Hemoglobin A1c AMB Hemoglobin A1c 6.4 % Last Edit by JANKI Bullard on 04/22/25 10 :14 Results Reviewed Results Reviewed: Laboratory Last Values Hgb A1c (Clinic) 6.4 % (4.0-6.0) H 04/22/25 10:07 Coding Level of Care Code Est Pt Level 4 (65083) Diagnoses Anemia due to acute blood loss D62 Anemia type: other cause Other causes of anemia: acute posthemorrhagic Paroxysmal atrial fibrillation I48.0 Essential hypertension I10 Pure hypercholesterolemia E78.00 Type 2 diabetes mellitus without complication, without long-term current use of insulin E11.9 Diabetes mellitus type: type 2 Diabetes mellitus termite exterminator helper insulin use: without termite exterminator helper use Diabetes mellitus complication status: without complication Right lateral abdominal pain R10.9 Obesity (BMI 30-39.9) E66.9 Additional Codes PHQ-9 - 51588 - PHQ-9 Billing: Yes ([id number]) Assessment & Plan Assessment & Plan (1) Anemia: Code(s): D64.9 - Anemia, unspecified Category: Medical Qualifiers: Anemia type: other cause Other causes of anemia: acute posthemorrhagic Qualified Code(s): D62 - Acute posthemorrhagic anemia Plan: Due to GI bleeding from an inflamed gastric polyp, identified by EGD on 12/17/2024 and required blood transfusion of 2 units of PRBC - resolved with no recurrence since He has received a total of 8 doses of IV Venofer so far, with his last dose on 03/04/2025 His last H/H on 03/04/2025 was at 12.8/40.1 Will have patient recheck his labs and CBC HERMAN for follow-up Continue Omeprazole 40 mg QD Follow up with hematology and with GI as scheduled (2) Paroxysmal atrial fibrillation: Comment: follows w/HCS Code(s): I48.0 - Paroxysmal atrial fibrillation Category: Medical Plan: Patient is currently still in sinus rhythm Continue Flecainide 1 mg Q 12 hours and Metoprolol ER 12.5 mg QD Continue Apixaban 5 mg BID for thromboembolism prophylaxis Follow up with cardiology as scheduled (3) Essential hypertension: Code(s): I10 - Essential (primary) hypertension Category: Medical Plan: Reinforced low sodium diet - goal is systolic BP of 120 mm or less Continue Metoprolol ER 12.5 mg QD; his Triamterene-HCTZ 37.5-25 mg QD was discontinued a few months ago Continue Furosemide 20 mg 3 times a week As his blood pressure has been consistently elevated now over the past few months , will go ahead and increase his Lisinopril dose from 10 mg to 20 mg QD Patient is instructed to continue monitoring his blood pressure regularly (4) Pure hypercholesterolemia: Code(s): E78.00 - Pure hypercholesterolemia, unspecified Category: Medical Plan: Patient was not able to get his follow-up labs done prior to coming in today - states that he will go and get them done tomorrow morning Reinforced low cholesterol diet Continue Rosuvastatin 40 mg QD Will recheck his labs and fasting lipids in 4 months for follow up (5) Diabetes mellitus: Code(s): E11.9 - Type 2 diabetes mellitus without complications Category: Medical Qualifiers: Diabetes mellitus type: type 2 Diabetes mellitus termite exterminator helper insulin use: without termite exterminator helper use Diabetes mellitus complication status: without complication Qualified Code(s): E11.9 - Type 2 diabetes mellitus without complications Plan: His in-office HgbA1c today is again at 6.4% (HgbA1c was at 6.8% back in May 2024) - goal is at least <7.0% Reinforced diabetic diet Continue Metformin 1000 mg BID (6) Right lateral abdominal pain: Code(s): R10.9 - Unspecified abdominal pain Category: Medical Plan: Patient is advised that this appears to be consistent with some muscular strain on his right lateral side He is instructed to apply some warm compress on his right side PRN for symptomatic relief and to avoid any heavy lifting or exertional activities for a week or two so as not to aggravate his injury Will start him as well on Tizanidine 4 mg TID PRN (7) Obesity (BMI 30-39.9): Code(s): E66.9 - Obesity, unspecified Category: Medical Plan: Reinforced diet/exercise as tolerated/lose weight Plan Follow-up in 4 months Orders: Orders AMB Hemoglobin A1c Today Z13.9 - Encounter for screening, unspecified Complete Blood Count Auto Diff 4 Months D64.9 - Anemia, unspecified Hemoglobin A1c 4 Months E11.9 - Type 2 diabetes mellitus without complications TSH reflex Free T4 4 Months E78.00 - Pure hypercholesterolemia, unspecified Comprehensive Mina. Panel Fast 4 Months E78.00 - Pure hypercholesterolemia, unspecified Lipid Panel 4 Months E78.00 - Pure hypercholesterolemia, unspecified Microalbumin, Random (w Creat) 4 Months E11.9 - Type 2 diabetes mellitus without complications UA CC w/rflx Micro + Cult 4 Months R30.0 - Dysuria Vitamin D 25-OH Total 4 Months E55.9 - Vitamin D deficiency, unspecified Medications: New tizanidine 4 mg PO Q8H PRN 30 tabs 0RF muscle spasms/pain on the right side 10 days Changed From lisinopril 10 mg PO DAILY 90 days 90 tabs 3RF To lisinopril 20 mg PO DAILY 90 tabs 3RF 90 days
== END 2025-04-22 10:37 | disposition home or self-care (01) ==
LOC: HO.HMCH 09:50
PROVIDERS: PCP Internal Medicine; Visit Provider Internal Medicine
DX: I48.0 Paroxysmal atrial fibrillation (principal); E11.9 Type 2 diabetes mellitus without complications; E66.9 Obesity, unspecified; Z68.35 Body mass index [BMI] 35.0-35.9, adult; D62 Acute posthemorrhagic anemia; I10 Essential (primary) hypertension; E78.00 Pure hypercholesterolemia, unspecified; R10.9 Unspecified abdominal pain

== ENCOUNTER → 2025-04-22 09:49 | Outpatient (BNVA) | payer MEDICARE, SELFPAY | PROVIDERS: PCP Internal Medicine; Visit Provider Internal Medicine | DX: D62 Acute posthemorrhagic anemia (principal); I48.0 Paroxysmal atrial fibrillation; I10 Essential (primary) hypertension; E78.00 Pure hypercholesterolemia, unspecified; E11.9 Type 2 diabetes mellitus without complications; R10.9 Unspecified abdominal pain; E66.9 Obesity, unspecified; Z68.35 Body mass index [BMI] 35.0-35.9, adult | CPT/HCPCS: 83036; 96127; 99212 ==

== ENCOUNTER 2025-04-23 07:24 | Outpatient (REF) | payer MEDICARE, SELFPAY ==
--- OUTSIDE RECORDS SUMMARY | 2024-12-17 07:00 | XMS_ITS ---
Author Organization [facility] Address [address] [place] [address] Care Team Providers Care Mobile Electronics Installer Name Role Phone Alan ALCALA, Tae Primary Care Provider Keven Villatoro Jr, Sean Pritchard REASON FOR VISIT anemia Encounters Encounter Location Date Provider Diagnosis [facility] Outpatient [address] [place], [place] [phone] 12/17/2024 Sean Villatoro Jr Plan Of Treatment Next Appt Details Provider Name:Sean palmer Jr, 03/15/2026 09:20:00 AM, [address], [address], [place], [address], Progress Notes * FANNY TINEO CDOB: [birth year] (65 yo M)Acc No.[id number]:12/17/2024 EGD/MAC Patient: FANNY SLOAN Provider: Kristie Villatoro MD :1960 A ge:64 Y S ex:Male Date:12/17/2024 Address[id number] Pcp:Tae Phillips MD Subjective: * Chief Complaints: * A nemia * The named appointment provid er may or may not be the originator of this progress note, and it is not deemed complete until electronically signed by the appointment provider. Sign off status: Pending * Provider: Kristie Villatoro MD Date: 0 12/17/2024 Generated for Merritt clark/Stephen/Hao on: 1 06/24/2024 07:28 AM EST
--- OUTSIDE RECORDS SUMMARY | 2025-04-23 07:28 | XMS_ITS | Patient Health Record ---
Author Organization [facility] Address [address] [place] [address] Care Team Providers Care Cardiology Consultant Name Role Phone Alan ALCALA, [place] Primary Care Provider Sean Mcallister Jr Unavailable [...] PANEL Reviewed date:03/16/2025 03:35:58 PM Interpretation: Performing Lab:[facility], [address] [place] [id number] Notes/Report: Campylobacter Not Detected Not Detect. Plesiomonas [...] is performed by Multiplexed PCR, utilizing the [employer]. Glucose, Whole Blood Reviewed date:12/17/2024 03:27:43 PM Interpretation: Performing Lab:[address] [id number] Notes/Report: Glucose, Whole Blood 116 60-115 mg/dL [facility] #: [id number] Pathology Reviewed date:12/29/2024 08:33:19 AM Interpretation: Performing Lab:[address] [id number] Notes/Report: Leukocytes Stool Qualitative Reviewed date:03/16/2025 03:31:39 PM Interpretation: Performing Lab:[address] [id number] Notes/Report: Leukocytes Stool Qualitative NEGATIVE NEGATIVE Ova and Parasite Reviewed date:04/05/2025 02:54:10 PM Interpretation: Performing Lab:[address] [id number] Notes/Report: Ova and Parasite SEE NOTE OVA AND PARASITES, CONC AND PERM SMEAR Micro Number: [id number] Test Status: Final Specimen Source: Stool Specimen [...] infection. For additional information, please refer to [email or web address] (This link is being provided for informational/ educational purposes only.) THIS TEST WAS PERFORMED AT: [employer] 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 Problems Problem Type SNOMED Code ICD Code Onset Dates Problem Status W/U Status Risk Notes Problem Colon cancer screening (991300941) Colon cancer screening (Z12.11) Active confirmed Problem History of polyp of colon (situation) (664783452) Personal history of colonic polyps (Z86.010) Active confirmed Problem Weight loss (068944515) Weight loss (R63.4) Active confirmed Problem Gastroesophageal reflux disease without esophagitis (424900093) Gastroesophageal reflux disease without esophagitis (K21.9) Active confirmed Problem Anemia (651902195) Anemia (D64.9) Active confir med Problem Generalized abdominal pain (807300007) Abdominal pain, generalized (R10.84) Active confirmed Problem Elevated liver enzymes level (539923953) Elevated LFTs (R94.5) Active confirmed Problem Weight decreased (685632588) Loss of weight (R63.4) Active confirmed Vital Signs Temperature 98.4 degrees Fahrenheit 03/14/2025 Blood pressure diastolic 01 mm Hg 03/14/2025 Height 68.5 in 03/14/2025 Blood pressure systolic 001 mm Hg 03/14/2025 Weight 245.2 lbs 03/14/2025 BMI 36.74 kg/m2 03/14/2025 Encounters Encounter Location Date Provider Diagnosis [facility] Outpatient [address] [place] [phone] 12/17/2024 Sean Villatoro Jr [facility] [address] [place] [phone] 12/15/2024 Sean Villatoro Jr Anemia D64.9 [facility] [address] [place] [phone] 03/14/2025 Sean Villatoro Jr Diarrhea R19.7 [facility] [address] [place] [phone] 12/13/2024 Sean Villatoro Jr [facility] [address] [place] [phone] 12/29/2024 Sean Villatoro Jr [facility] [address] [place] [phone] 04/04/2025 Sean Villatoro Jr Assessments Encounter Date [...] Provider Name:Sean palmer , 03/15/2026 09:20:00 AM, [address] [place] [address], [address], [place], [address], Insurance Providers Payer Name Payer Address Payer Phone Subscriber Number Group Number Insured Name Patient Relationship to Insured Coverage Start Date Coverage End Date [facility] [address] [place], [place] [id number] FANNY TINEO Self - patient is the insured Medical (General) History Medical History History ICD Code Gastroesophageal reflux disease, EGD/19, no HP or BE Colonoscopy 09/09, normal, 10-year follow -up Hyperlipidemia Atrial fibrillation Hypertension Diabetes mellitus type 2 Remote history of CVA Elevated BMI Surgical History Surgery Date(Month/Year) finger surgery
[2025-04-23 09:13] LABS: Hematocrit 43.3 % (42.0-52.0); Hemoglobin 14.1 g/dl (14.0-18.0); Imm Gran Abs Auto 0.01 X10*3/uL (0.00-0.03); Imm Gran Pct Auto 0.2 % (0.0-0.4); Lymphocytes Absolute Auto 1.3 X10*3/uL (1.2-4.9); MANUAL DIFF FLAG SCAN; Mean Corpuscular HGB Conc 32.6 g/dl (31.0-36.0); Mean Corpuscular Hemoglobin 28.7 pg (27.0-33.0); Mean Corpuscular Volume 88.2 fL (80.0-98.0); NRBC Abs Auto 0.000 X10*3/uL (0.0-0.012); NRBC Pct Auto 0.0 /100WBC (0.0-0.2); PLT CLUMP 1; Red Blood Count 4.91 X10*6/uL (4.60-5.80); SCAN SMEAR FLAG 1
[2025-04-23 09:20] LABS: White Blood Count 5.7 X10*3/uL (4.8-10.8)
[2025-04-23 09:50] LABS: Platelet Count 122 X10*3/uL (160-400)
[2025-04-23 10:11] LABS: Alanine Aminotransferase 21 U/L (0-40); Albumin Level 4.3 g/dL (3.5-5.0); Alkaline Phosphatase 72 U/L (39-117); Anion Gap 13 (12-20); Aspartate Amino Transferase 25 U/L (5-37); Blood Urea Nitrogen 14 mg/dL (9-16); Calcium 9.0 mg/dL (8.4-10.2); Carbon Dioxide 22 mmol/L (22-29); Chloride 110 mmol/L (96-108); Cholesterol 155 mg/dL (<200); Estimated Glomerular Filt Rate > 60; HDL Cholesterol 47 mg/dL (>40); Potassium 4.4 mmol/L (3.3-5.1); Sodium 141 mmol/L (135-145); Total Protein 7.4 g/dL (6.5-8.0); Triglycerides 150 mg/dL (<150)
[2025-04-23 10:32] LABS: Appearance Urine Clear; Glucose Urine UA Negative (Negative); PH 5.5 (5.0-9.0); Specific Gravity - Urine 1.025 (1.005-1.025); UMIC TRIGGER UACC YES
[2025-04-23 10:38] LABS: Folate 13.6 ng/mL (> or = 4.0); Vitamin B12 582 pg/mL (200-900)
[2025-04-23 11:13] LABS: Microalbum/Creatinine Ratio Ur 363.2 ug/mg cr (<30)
== END 2025-04-23 07:25 | disposition home or self-care (01) ==
LOC: HO.LAB 07:24
PROVIDERS: PCP Internal Medicine; Visit Provider Internal Medicine
DX: E11.9 Type 2 diabetes mellitus without complications (principal); E78.00 Pure hypercholesterolemia, unspecified; E53.8 Deficiency of other specified B group vitamins; D64.9 Anemia, unspecified; E55.9 Vitamin D deficiency, unspecified; R30.0 Dysuria
CPT/HCPCS: 36415; 80053; 80061; 81001; 82043; 82306; 82570; 82607; 82746; 83036; 84443; 85025

== ENCOUNTER 2025-05-16 07:57 | Outpatient (REF) | payer MEDICARE, SELFPAY ==
--- OUTSIDE RECORDS SUMMARY | 2024-12-17 07:00 | XMS_ITS ---
Author Organization [facility] Address [address] [place] [address] Care Team Providers Care Analytical Statistician Name Role Phone Alan ALCALA, Tae Primary Care Provider Keven Villatoro Jr, Sean Pritchard REASON FOR VISIT anemia Encounters Encounter Location Date Provider Diagnosis [facility] [place] [place] Outpatient [address] [place], [place] [phone] 12/17/2024 Sean Villatoro Jr Plan Of Treatment Next Appt Details Provider Name:Sean palmer Jr, 03/15/2026 09:20:00 AM, [address], [address], [place], [address], Progress Notes * FANNY TINEO CDOB: [birth year] (65 yo M)Acc No.[id number]:12/17/2024 EGD/MAC Patient: FANNY SLOAN Provider: Kristie Villatoro MD :1960 A ge:64 Y S ex:Male Date:12/17/2024 Address[id number] Pcp:Tae Phillips MD Subjective: * Chief Complaints: * A nemia * The named appointment provid er may or may not be the originator of this progress note, and it is not deemed complete until electronically signed by the appointment provider. Sign off status: Pending * Provider: Kristie Villatoro MD Date: 0 12/17/2024 Generated for Merritt clark/Stephen/Hao on: 1 07:59 AM EST
--- NOTE | ~2025-05-16 | US_ITS ---
CLINICAL HISTORY: N28.9 - Disorder of kidney and ureter, unspecified US of kidneys Comparison: None provided Findings: Right kidney is normal in size, echogenicity and morphology, 11.2 cm in length. No calculus, mass or hydronephrosis. Left kidney is normal in size, echogenicity and morphology, 12.0 cm in length. Homogeneously hyperechoic solid cortical mass 2.0 x 1.9 x 1.8 cm at the interpolar region, no posterior acoustic features or intralesional vascular flow. No calculus or hydronephrosis. Limited color Doppler demonstrates unremarkable bilateral blood flow. 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 This document has been electronically signed by: Naty Finley MD on 05/17/2025 16:49:07
--- OUTSIDE RECORDS SUMMARY | 2025-05-16 08:00 | XMS_ITS | Patient Health Record ---
Author Organization [facility] Address [address] [place] [address] Care Team Providers Care Cut Lace Machine Operator Name Role Phone Alan ALCALA, [place] Primary Care Provider Sean Mcallister Jr [phone] Allergies Allergen (clinical drug ingredient) Drug/Non Drug [...] Results Component Value Reference Range Flag Notes Glucose, Whole Blood Reviewed date:12/17/2024 03:27:43 PM Interpretation: Performing Lab:[facility], [address] [place] [phone] Notes/Report: Glucose, Whole Blood 116 60-115 mg/dL H VT TER #: [id number] Leukocytes Stool Qualitative Reviewed date:03/16/2025 03:31:39 PM Interpretation: Performing Lab:[facility], [address] [place] [phone] Notes/Report: Leukocytes Stool Qualitative NEGATIVE NEGATIVE Ova and Parasite Reviewed date:04/05/2025 02:54:10 PM Interpretation: Performing Lab:[facility], [address] [place] [phone] Notes/Report: Ova and Parasite SEE NOTE OVA AND PARASITES, CONC AND PERM SMEAR Micro Number: [id number] Test Status: Final Specimen Source: Stool Specimen [...] infection. For additional information, please refer to https://education.Leadhit/faq/FAQ20 3 (This link is being provided for informational/ educational purposes only.) THIS TEST WAS PERFORMED AT: [facility] [address] [place] [phone] BEN BERGER MD GI PANEL Reviewed date:03/16/2025 03:35:58 PM Interpretation: Performing Lab:[facility], [address] [place] [phone] Notes/Report: Campylobacter Not Detected Not Detect. Plesiomonas [...] is performed by Multiplexed PCR, utilizing the [employer]. 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 Problems Problem Type SNOMED Code ICD Code Onset Dates Problem Status W/U Status Risk Notes Problem Colon cancer screening (704791802) Colon cancer screening (Z12.11) Active confirmed Problem History of polyp of colon (situation) (769781848) Personal history of colonic polyps (Z86.010) Active confirmed Problem Weight loss (069872480) Weight loss (R63.4) Active confirmed Problem Gastroesophageal reflux disease without esophagitis (974789892) Gastroesophageal reflux disease without esophagitis (K21.9) Active confirmed Problem Anemia (129664755) Anemia (D64.9) Active confir med Problem Generalized abdominal pain (458643856) Abdominal pain, generalized (R10.84) Active confirmed Problem Elevated liver enzymes level (847639228) Elevated LFTs (R94.5) Active confirmed Problem Weight decreased (198737289) Loss of weight (R63.4) Active confirmed Vital Signs Temperature 98.4 degrees Fahrenheit 03/14/2025 Blood pressure diastolic 01 mm Hg 03/14/2025 Height 68.5 in 03/14/2025 Blood pressure systolic 001 mm Hg 03/14/2025 Weight 245.2 lbs 03/14/2025 BMI 36.74 kg/m2 03/14/2025 Encounters Encounter Location Date Provider Diagnosis [facility] Outpatient [address] [place] [id number] 12/17/2024 Sean Villatoro Jr [facility] [address] [place] [phone] 12/15/2024 Sean Villatoro Jr Anemia D64.9 [facility] [address] [place] [phone] 03/14/2025 Sean Villatoro Jr Diarrhea R19.7 [facility] [address] [place] [phone] 12/13/2024 Sean Villatoro Jr [facility] [address] [place] [phone] 12/29/2024 Sean Villatoro Jr [facility] [address] [place] [phone] 04/04/2025 Sean Villatoro Jr Assessments Encounter Date [...] Provider Name:Sean palmer , 03/15/2026 09:20:00 AM, [address] [place] [address], [address], [place], [address], Insurance Providers Payer Name Payer Address Payer Phone Subscriber Number Group Number Insured Name Patient Relationship to Insured Coverage Start Date Coverage End Date [facility] [address] [place], [place] [id number] FANNY TINEO Self - patient is the insured Medical (General) History Medical History History ICD Code Gastroesophageal reflux disease, EGD/19, no HP or BE Colonoscopy 09/09, normal, 10-year follow -up Hyperlipidemia Atrial fibrillation Hypertension Diabetes mellitus type 2 Remote history of CVA Elevated BMI Surgical History Surgery Date(Month/Year) finger surgery
== END 2025-05-16 07:58 ==
LOC: HO.US 07:57
PROVIDERS: PCP Internal Medicine; Visit Provider Nurse Practitioner Family
DX: N28.9 Disorder of kidney and ureter, unspecified (principal)
CPT/HCPCS: 76775

== ENCOUNTER → 2025-05-16 07:58 | Outpatient (BNV) | payer MEDICARE, SELFPAY | PROVIDERS: PCP Internal Medicine; Visit Provider Radiology Diagnostic Radiology | DX: D41.02 Neoplasm of uncertain behavior of left kidney (principal) | CPT/HCPCS: 76775 ==